=== PATIENT | male | born 1980 | race Caucasian/White ===

== ENCOUNTER 2016-04-09 01:52 | Inpatient (IN) ==
[2016-04-09] MEDS ORDERED: MORPHINE 2 MG/1 ML SYRINGE IV STA (02:17)
[2016-04-09] MEDS ORDERED: ONDANSETRON 4 MG/2 ML VIAL IV STA (02:17)
[2016-04-09] MEDS ORDERED: SODIUM CHLORIDE 0.9% 1,000 ML IV STA (02:17)
[2016-04-09] MEDS ORDERED: ONDANSETRON 4 MG/2 ML VIAL ONE (02:22)
[2016-04-09] MEDS ORDERED: MORPHINE 2 MG/1 ML SYRINGE ONE (02:22)
--- NOTE | 2016-04-09 02:23 | Emergency Department Note ---
Kera Anderson Gwan, am scribing for, and in the presence of, Ramon Sharma MD 02:19. Zachary nAderson Robert M, MD, personally performed the services described in this documentation, ascribed by Monico Cote in my presence, and it is both accurate and complete . Arrival - Arrival Chief Complaint: Abdominal / Flank Pain Stated Complaint: pancreatitis ED Nursing Triage Note: pt to triage via wc with c/o having abd pain with n/v. pt states onset earlier tonight around 2230. Mode of Arrival: Wheelchair Limitations: No Limitations Source: Patient, Old Records Reviewed, RN Notes Reviewed - History of Present Illness HPI Narrative: Pt is a 35 y/o male ,with a hx of diverticulitis/GERD/Pancreatitis, who presents to the ED with a c/o abd pain, N/V with an onset yesterday at 2230. Patient confirmed that he is followed by Dr. Sauceda and that he has been having normal BM. He denies any ETOH use. Patient continued to note that ETOH use is the cause of his Pancreatitis. Pt has a PMHx of HTN, anxiety disorder, bipolar disorder, manic depression, obstructive sleep apnea and dyslipidemia. No other problems/complaints reported in ED. Onset (ago): hour(s) Consistency: constant Severity: moderate Allergies/Adverse Reactions: Allergies Allergy/AdvReac Type Severity Reaction Status Date / Time Cefaclor [From Ceclor] AdvReac HIVES Verified 10/21/15 10:07 Home Medications: Home Medications Medication Instructions Recorded Confirmed Type Benazepril HCl 20 mg PO QAM 10/21/15 12/26/15 History Lorazepam [Ativan] 2 mg PO TID 10/21/15 12/26/15 History Sertraline HCl 100 mg PO QAM 10/21/15 12/26/15 History Acetaminophen Tab [Tylenol Tab] 500 mg PO Q12HR PRN #60 tablet 01/03/16 Rx Docusate Sodium Cap [Colace Cap] 100 mg PO BID capsule 01/03/16 Rx Potassium Chloride Cap/Tab [K Dur] 20 meq PO BID #60 tablet 01/03/16 Rx Thiamine Tab [Vitamin B1 Tab] 100 mg PO DAILY #30 tablet 01/03/16 Rx Review of System - Review of System 12 point system: reviewed and no additional remarkable complaints except as stated - Review of System Gastrointestinal: Present: as per HPI, abdominal pain, nausea, vomiting Medical,Surgical,& Family Hx - Medical History Cardio: History of: Hypertension Psychological: History of: Anxiety Disorders, Bipolar Disorder, Psychiatric Problems (MANIC DEPRESSION) HEENT: History of: HEENT Problems (RINGING IN EARS WHEN HAS SINUS PROBLEMS) Endocrine: History of: Dyslipidemia Rheumatology: History of;: Gout (FEET), Psoriasis Respiratory: History of: Obstructive Sleep Apnea (CPAP AT NIGHT) Gastrointestinal: History of: Diverticulitis/ Diverticulosis, GERD, GI Problems (abd hernia at [facility]) Hematology: History of: Anemia - Surgical History HEENT Surgeries: Patient denies: Eye Surgery, Tonsilectomy & Adenoidectomy Abdominal Surgeries: Patient denies: Abdominal Surgery, Appendectomy, Cholecystectomy, Colonoscopy , Gastric Bypass Surgery, EGD, Hernia Repair - Family History Family History: Reports;: Family Heart Disease (GRANDPARENTS (PAT AND MAT)) Denies;: Family Anesthesia Reaction, Family Cancer, Family Diabetes, Family Hypertension, Family Psychiatric Problems, Family Stroke - Social History Smoking Status: Never smoker Frequency of Alcohol Use: None Type of Drug Use: None Exam Vital Signs: Vital Signs Temperature 98.0 F 04/09/16 01:57 Pulse Rate 84 04/09/16 01:57 Respiratory Rate 17 04/09/16 01:57 Blood Pressure 140/95 04/09/16 01:57 O2 Sat by Pulse Oximetry 98 04/09/16 01:57 - General General appearance: alert - Head Head exam: Present: atraumatic, normocephalic - Eye Eye exam: Present: normal appearance, PERRL, EOMI - ENT ENT exam: Present: normal oropharynx, mucous membranes moist, TM's normal bilaterally, normal external ear exam - Neck Neck exam: Present: full ROM, trachea midline. Absent: tenderness - Chest Chest inspection: Present: symmetric chest wall rise. Absent: tenderness - Respiratory Respiratory exam: Present: normal lung sounds bilaterally. Absent: respiratory distress - Cardiovascular Cardiovascular exam: Present: regular rate, normal rhythm, normal heart sounds. Absent: murmur, rubs, gallop - Abdominal Exam Abdominal exam: Present: tenderness (Epigastric tenderness), guarding - Extremities Exam Extremities exam: Present: full ROM. Absent: tenderness - Back Exam Back exam: Present: full ROM. Absent: tenderness - Neurological Exam Neurological exam: Present: alert, oriented X3, CN II-XII intact. Absent: motor sensory deficit - Psychiatric Psychiatric exam: Present: normal affect, normal mood - Skin Skin exam: Present: warm, dry, intact, normal color Course - Reevaluation(s) Reevaluation #1: I checked the patient's FAMILY SOCIOLOGIST aware and it appears that he has Ambien and Ativan and large amounts most recently filled around March 29. Time: :21 - Consultations Consultation #1: Dr. Fishman will evaluate and admit the patient. Time: 03:09 Results - Labs CBC & BMP: 04/09/16 02:15 04/09/16 02:15 Lab Results: I have reviewed the patients labs Labs: Lab Results WBC 10.7 T/CUMM (4-12) 04/09/16 02:15 RBC 5.24 MC/CUMM (3.8-5.5) 04/09/16 02:15 Hgb 17.9 GM/DL (14.0-18.0) 04/09/16 02:15 Hct 51.5 VOL% (42.0-52.0) 04/09/16 02:15 MCV 98.3 FL (87-102) 04/09/16 02:15 MCH 34 PG (27-34) 04/09/16 02:15 MCHC 34.8 GM/DL (32-36) 04/09/16 02:15 RDW 14.0 % (9.3-17.3) 04/09/16 02:15 Plt Count 125 T/CUMM (130-400) L 04/09/16 02:15 MPV 11.9 FL (9.6-12.0) 04/09/16 02:15 Neut % (Auto) 68.0 % (38.7-73.9) 04/09/16 02:15 Lymph % (Auto) 21.6 % (21.2-54.2) 04/09/16 02:15 [place] % (Auto) 8.3 % (1.7-12.7) 04/09/16 02:15 Eos % (Auto) 1.0 % (0.00-10.9) 04/09/16 02:15 Baso % (Auto) 0.7 % (0.0-0.8) 04/09/16 02:15 Neut # (Auto) 7.3 10*3/uL (1.4-7.4) 04/09/16 02:15 Lymph # (Auto) 2.3 10*3/uL (1.4-4.0) 04/09/16 02:15 [place] # (Auto) 0.9 10*3/uL (0.11-0.8) H 04/09/16 02:15 Eos # (Auto) 0.1 10*3/uL (0.0-0.87) 04/09/16 02:15 Baso # (Auto) 0.1 10*3/uL (0.0-0.2) 04/09/16 02:15 Immature Gran % 0.4 % 04/09/16 02:15 Nucleated RBC % 0.0 /100WBC 04/09/16 02:15 Immature Gran # 0.04 # 04/09/16 02:15 Nucleated RBCs # 0.00 10*3/uL 04/09/16 02:15 Sodium 135 MMOL/L (136-145) L 04/09/16 02:15 Potassium 3.4 MMOL/L (3.5-5.1) L 04/09/16 02:15 Chloride 100 MMOL/L (98-107) 04/09/16 02:15 Carbon Dioxide 23 MMOL/L (21-32) 04/09/16 02:15 Anion Gap 15.4 MMOL/L (5.0-15.0) H 04/09/16 02:15 BUN 5 MG/DL (7-18) L 04/09/16 02:15 Creatinine 0.70 MG/DL (0.70-1.30) 04/09/16 02:15 GFR Calculation 156 ML/MIN 04/09/16 02:15 BUN/Creatinine Ratio 7.00 RATIO (6.00-20.00) 04/09/16 02:15 Glucose 130 MG/DL (74-106) H 04/09/16 02:15 Calculated Osmolality 268.1 MOS/KG (273-304) L 04/09/16 02:15 Calcium 8.9 MG/DL (8.5-10.1) 04/09/16 02:15 Total Bilirubin 0.70 MG/DL (0.2-1.0) 04/09/16 02:15 AST 68 U/L (0-37) H 04/09/16 02:15 ALT 60 U/L (16-61) 04/09/16 02:15 Alkaline Phosphatase 103 U/L (45-117) 04/09/16 02:15 Total Protein 7.5 G/DL (6.4-8.3) 04/09/16 02:15 Albumin 3.4 G/DL (3.4-5.0) 04/09/16 02:15 Globulin 4.1 G/DL (2.3-3.5) H 04/09/16 02:15 Albumin/Globulin Ratio 0.8 RATIO (1.1-2.2) L 04/09/16 02:15 Amylase 443 U/L (25-115) H 04/09/16 02:15 Lipase 80712.0 U/L (73-393) H 04/09/16 02:15 Serum Alcohol < 15 MG/DL (<15) L 04/09/16 02:15 Disposition Clinical Impression: Pancreatitis, Hypokalemia Case discussed with: patient, patient's family Disposition: Still a Patient Condition: Stable Instructions: Pancreatitis (ED) Time of Disposition: 03:09
[2016-04-09 02:34] LABS: Basophils # 0.1 10*3/uL (0.0-0.2); Basophils % 0.7 % (0.0-0.8); Eosinophils # 0.1 10*3/uL (0.0-0.87); Hematocrit 51.5 VOL% (42.0-52.0); Hemoglobin 17.9 GM/DL (14.0-18.0); Immature Granulocytes % 0.4 %; Immature Granulocytes Absolute 0.04 #; Lymphocytes # 2.3 10*3/uL (1.4-4.0); Lymphocytes % 21.6 % (21.2-54.2); Mean Corpuscular HGB Conc 34.8 GM/DL (32-36); Mean Corpuscular Hemoglobin 34 PG (27-34); Mean Corpuscular Volume 98.3 FL (87-102); Mean Platelet Volume 11.9 FL (9.6-12.0); Monocytes # 0.9 10*3/uL (0.11-0.8); Monocytes % 8.3 % (1.7-12.7); Neutrophils # 7.3 10*3/uL (1.4-7.4); Platelet Count 125 T/CUMM (130-400); Red Blood Count 5.24 MC/CUMM (3.8-5.5); White Blood Count 10.7 T/CUMM (4-12)
[2016-04-09 02:55] LABS: Albumin 3.4 G/DL (3.4-5.0); Bilirubin,Total 0.7 MG/DL (0.2-1.0); Calcium 8.9 MG/DL (8.5-10.1); Osmolality,Calculated 268.1 MOS/KG (273-304); Potassium 3.4 MMOL/L (3.5-5.1); Total Protein 7.5 G/DL (6.4-8.3)
[2016-04-09] MEDS ORDERED: ACETAMINOPHEN 325 MG TABLET PO PRN (03:10)
[2016-04-09] MEDS ORDERED: HYDROmorphone 2 MG/1 ML VIAL IV STA (03:17)
[2016-04-09] MEDS ORDERED: HYDROmorphone 2 MG/1 ML VIAL ONE (03:19)
[2016-04-09] MEDS ORDERED: SODIUM CHLORIDE 0.9% 1,000 ML IV SCH (03:30)
[2016-04-09 03:36] LABS: Apearance,Urine Slightly Hazy (Clear); Bilirubin,Urine Negative (Negative); Blood, Urine Negative (Negative); Glucose,Urine (UA) Negative (Negative); Hyaline Casts,Urine 3 /LPF (0-3); Ketones,Urine 5 mg/dL (Negative); Mucus,Urine Many /LPF (Occasional); Nitrite,Urine Negative (Negative); Protein,Urine 30 MG/DL; Squamous Epithelial Cell,Urine Occasional /HPF (0-10); Urine Color Amber (Yellow); Urine Urobilinogen < 2.0 EU/DL (0.2-1.0); WBC,Urine 2 /HPF (0-6)
[2016-04-09 03:39] LABS: Barbiturates Screen,Urine Negative (Negative); Benzodiazepines Screen,Urine Positive (Negative); Cannabinoid Screen,Urine Positive (Negative); Opiate Screen,Urine Positive (Negative); Phencyclidine Screen,Urine Negative (Negative)
[2016-04-09] MEDS ORDERED: INFLUENZA VIRUS VACCINE 0.5 ML SYRINGE IM ONE (04:37)
--- NOTE | 2016-04-09 08:02 | Family Practice History&Phys ---
Assessment and Plan (1) Acute pancreatitis Status: Acute Assessment and plan: We will admit for IV fluids pain control and obtain a GI consult Current Visit: No Qualifiers: Pancreatitis type: alcohol induced (2) Substance abuse Status: Chronic Assessment and plan: We will monitor for signs of substance withdrawal Current Visit: Yes (3) Bipolar disorder Status: Chronic Assessment and plan: We will resume home medications Current Visit: Yes (4) Obstructive sleep apnea Status: Chronic Assessment and plan: We will resume CPAP and monitor Current Visit: Yes (5) Hypertension Status: Chronic Assessment and plan: We will resume home meds and monitor Current Visit: Yes (6) Hyperlipidemia Status: Chronic Assessment and plan: We will resume home meds and monitor Current Visit: Yes History of Present Illness Chief complaint: Pancreatitis History of present illness: Mr. Clements is a 35 year old male Pt is a 35 y/o male ,with a hx of diverticulitis/GERD/Pancreatitis, who presents to the ED with a c/o abd pain, N/V with an onset yesterday at 2230. Patient has been having normal BM. He denies any ETOH use. Patient continued to note that ETOH use is the cause of his Pancreatitis. Pt has a PMHx of HTN, anxiety disorder, bipolar disorder, manic depression, obstructive sleep apnea and dyslipidemia. No other problems/complaints reported . Patient is known to me there is only seen hospital admitted for pancreatitis. His drug screen in the emergency room was positive for opioids and benzodiazepines and cannabinoids. Serum alcohol was negative. His amylase was 443 and lipase was 14,169. He is having significant pain on palpation of the epigastric region. In view of history we will admit further evaluation therapy Home Medications Medication Instructions Recorded Confirmed Type Benazepril HCl 20 mg PO QAM 10/21/15 04/09/16 History Lorazepam [Ativan] 2 mg PO TID 10/21/15 04/09/16 History Sertraline HCl 100 mg PO QAM 10/21/15 04/09/16 History Zolpidem [Ambien] 10 mg PO BEDTIME 04/09/16 04/09/16 History Allergies Allergy/AdvReac Type Severity Reaction Status Date / Time Cefaclor [From Ceclor] AdvReac HIVES Verified 10/21/15 10:07 Medical,Surgical,& Family Hx - Medical History Cardio: History of: Hypertension Psychological: History of: Anxiety Disorders, Bipolar Disorder, Psychiatric Problems (MANIC DEPRESSION) HEENT: History of: Eye Problem (wears glasses), HEENT Problems (RINGING IN EARS WHEN HAS SINUS PROBLEMS) Endocrine: History of: Dyslipidemia Rheumatology: History of;: Gout (FEET), Psoriasis Respiratory: History of: Obstructive Sleep Apnea (CPAP AT NIGHT) Gastrointestinal: History of: Diverticulitis/ Diverticulosis, GERD, GI Problems (abd hernia at [employer]) Hematology: History of: Anemia - Surgical History Thoracic Surgeries: Patient denies;: Organ Transplant HEENT Surgeries: Surgical HX of: Tonsilectomy & Adenoidectomy (adenoidectomy) Patient denies: Eye Surgery Abdominal Surgeries: Patient denies: Abdominal Surgery, Appendectomy, Cholecystectomy, Colonoscopy , Gastric Bypass Surgery, EGD, Hernia Repair - Family History Family History: Reports;: Family Heart Disease (GRANDPARENTS (PAT AND MAT)), Family Hypertension Denies;: Family Anesthesia Reaction, Family Cancer, Family Diabetes, Family Psychiatric Problems, Family Stroke - Social History Smoking Status: Never smoker Frequency of Alcohol Use: None Type of Drug Use: None Exam - Constitutional Vitals: Period Temp Pulse Resp BP Sys/Velasquez Pulse Ox Last 24 Hr 97.6 F 81-91 20-20 146-159/93-104 95-97 General appearance: mild distress - Head Head exam: Present: normal inspection - ENT ENT exam: Present: normal exam - Neck Neck exam: Present: normal inspection - Respiratory Respiratory exam: Present: clear to auscultation bilaterally - Cardiovascular Cardiovascular exam: Present: regular rate and rhythm - GI/Abdominal GI/Abdominal exam: Present: hyperactive bowel sounds, tenderness (Tenderness over the epigastric region of abdomen) - Extremities Exam Extremities exam: Present: normal inspection - Back Exam Back exam: Present: normal inspection - Neurological Exam Neurological exam: Present: alert - Psychiatric Psychiatric exam: Present: normal affect - Skin Skin exam: Present: normal color Results - Labs CBC & BMP: 04/09/16 02:15 04/09/16 02:15 Quality Measures - Stroke Symptom Onset Unknown: No
[2016-04-09] MEDS: HYDROmorphone 2 MG/1 ML VIAL IV PRN ×5 (08:08→23:57)
[2016-04-09] MEDS: PANTOPRAZOLE 40 MG TABLET PO SCH (09:48)
[2016-04-09] MEDS: DOCUSATE SODIUM 100 MG CAPSULE PO SCH ×2 (09:48→21:19)
[2016-04-09] MEDS: LORazepam 1 MG TABLET PO SCH ×3 (09:48→21:19)
[2016-04-09] MEDS: BENAZEPRIL 10 MG TABLET PO SCH (09:48)
[2016-04-09] MEDS: SERTRALINE 100 MG TABLET PO SCH (09:49)
[2016-04-09] MEDS: SODIUM CHLOR 0.9% KCL 20 MEQ 20 MEQ/1,000 ML BAG IV SCH ×2 (09:49→17:33)
--- NOTE | 2016-04-09 10:16 | Gastrointestinal Consult Note ---
Assessment and Plan (1) Acute pancreatitis Status: Acute Assessment and plan: 3/3-Two day history of LUQ pain with nausea, vomiting with hx of pancreatitis in December 2015, with hx of ETOH. Lipase 27051 on admission. Abd US is pending at present time. Plan and addendum to follow by Dr Cortez. Current Visit: No Qualifiers: Pancreatitis type: alcohol induced (2) Rectal bleeding Status: Acute Assessment and plan: 3-Onset of bright red bleeding w/o clots x 2 days. No lower abd pain. Hgb stable at 17.9. No prior endoscopy. Plan and addendum to follow by Dr Cortez. Current Visit: Yes History of Present Illness Chief complaint: Pancreatitis, rectal bleed History of present illness: Mr. Clements is a 35 year old male who presented to the hospital with onset of abdominal pain and reported rectal bleeding. He has a prior history of HTN, anxiety disorder, bipolar disorder, manic depressive and obstructive sleep apnea. Pt states that he was in his usual state of health until Tuesday when he had a sudden onset of LUQ abdominal pain with nausea and vomiting. He states the pain was severe in nature and not easily relieve. Pt states that it felt very similar to his prior episode of pancreatitis in the past. Patient states that he also has noted that he has had some bright red blood passing from his rectum the past couple of days. He has had this in the past as well. He denies any chills or weight loss but states he did run fever at home. He has a history of ETOH use however states he has not drank any alcohol since his initial episode in December. Pt was admitted in Dec of this past year with abdominal pain and coffee ground emesis. He states that he has had no further vomiting or bleeding until now. Pt has never had endoscopy done in the past. He denies any cofee ground emesis or hematemesis this time. He denies family history of colon cancer. He is noted to be positive for THC on admission which he states he smokes this once a week on average. Lipase 28579. Hgb 17.9. Home Medications Medication Instructions Recorded Confirmed Type Benazepril HCl 20 mg PO QAM 10/21/15 04/09/16 History Lorazepam [Ativan] 2 mg PO TID 10/21/15 04/09/16 History Sertraline HCl 100 mg PO QAM 10/21/15 04/09/16 History Zolpidem [Ambien] 10 mg PO BEDTIME 04/09/16 04/09/16 History Allergies Allergy/AdvReac Type Severity Reaction Status Date / Time Cefaclor [From [facility]] AdvReac HIVES Verified 10/21/15 10:07 Medical,Surgical,& Family Hx - Medical History Cardio: History of: Hypertension Psychological: History of: Anxiety Disorders, Bipolar Disorder, Psychiatric Problems (MANIC DEPRESSION) HEENT: History of: Eye Problem (wears glasses), HEENT Problems (RINGING IN EARS WHEN HAS SINUS PROBLEMS) Endocrine: History of: Dyslipidemia Rheumatology: History of;: Gout (FEET), Psoriasis Respiratory: History of: Obstructive Sleep Apnea (CPAP AT NIGHT) Gastrointestinal: History of: Diverticulitis/ Diverticulosis, GERD, GI Problems (abd hernia at [employer]) Hematology: History of: Anemia - Surgical History Thoracic Surgeries: Patient denies;: Organ Transplant HEENT Surgeries: Surgical HX of: Tonsilectomy & Adenoidectomy (adenoidectomy) Patient denies: Eye Surgery Abdominal Surgeries: Patient denies: Abdominal Surgery, Appendectomy, Cholecystectomy, Colonoscopy , Gastric Bypass Surgery, EGD, Hernia Repair - Family History Family History: Reports;: Family Heart Disease (GRANDPARENTS (PAT AND MAT)), Family Hypertension Denies;: Family Anesthesia Reaction, Family Cancer, Family Diabetes, Family Psychiatric Problems, Family Stroke - Social History Smoking Status: Never smoker Frequency of Alcohol Use: None Type of Drug Use: None 12 point system: reviewed and no additional remarkable complaints except as stated - Constitutional Constitutional: Present: as per HPI - EENT Eyes: Present: as per HPI Ears: Present: as per HPI Nose, mouth and throat: Present: as per HPI - Cardiovascular Cardiovascular: Present: as per HPI - Respiratory Respiratory: Present: as per HPI - Gastrointestinal Gastrointestinal: Present: as per HPI, abdominal pain, hematochezia, nausea, vomiting - Genitourinary Genitourinary: Present: as per HPI - Musculoskeletal Musculoskeletal: Present: as per HPI - Neurological Neurological: Present: as per HPI - Psychiatric Psychiatric: Present: as per HPI - Endocrine Endocrine: Present: as per HPI - Hematologic/Lymphatic Hematologic/Lymphatic: Present: as per HPI Exam - Constitutional Vitals: Period Temp Pulse Resp BP Sys/Velasquez Pulse Ox Last 24 Hr 97.6 F-97.7 F 73-91 20-20 146-159/89-104 93-97 General appearance: normal weight, no acute distress - Head Head exam: Present: normal inspection, normocephalic - Eye Eye exam: Present: other (lids and conjunctiva unremarkable). Absent: scleral icterus - ENT ENT exam: Present: normal exam, normal oropharynx - Neck Neck exam: Present: normal inspection - Respiratory Respiratory exam: Present: clear to auscultation bilaterally. Absent: rales, rhonchi, wheezes - Cardiovascular Cardiovascular exam: Present: regular rate and rhythm. Absent: diastolic murmur , JVD, systolic murmur - GI/Abdominal GI/Abdominal exam: Present: normal bowel sounds, tenderness, soft. Absent: ascites, distended, mass, organomegaly - Extremities Exam Extremities exam: Present: normal inspection, full ROM - Back Exam Back exam: Present: normal inspection - Neurological Exam Neurological exam: Present: alert, oriented X3 - Psychiatric Psychiatric exam: Present: normal affect, normal mood - Skin Skin exam: Present: normal color, warm, dry Results - Labs CBC & BMP: 04/09/16 02:15 04/09/16 02:15 Lab Results: I have reviewed the past 24 hour labs Quality Measures - Stroke Symptom Onset Unknown: No Specialty Discharge - Follow Up or Referrals
--- NOTE | 2016-04-09 10:52 | Ultrasound Report ---
Exam: US abdomen Date: 04/09/2016 7:52 AM Comparison: 12/27/2015 Indication: Pancreatitis Technique:[Multiple transabdominal real-time scans were obtained of the abdomen. Color flow scans obtained. Ultrasound images were captured and stored.] Findings: No definite gallbladder pathology identified. CBD is. CBD is the upper limits of normal in size measuring 6 mm. The liver is enlarged with diffuse fatty infiltration. The spleen is normal in size. The spleen is borderline in size with splenic index of 499. Right kidney measures 111 mm in length. Left kidney measures 101 mm in length with no mass or hydronephrosis. The pancreas, aorta including the aortic bifurcation, and IVC are obscured by bowel gas. Color-flow noted in the IVC. Impression: No gallbladder pathology identified. The liver is enlarged with fatty infiltration. The spleen is borderline in size with splenic index of 499. The pancreas and aorta are obscured by bowel gas. The Ultrasound images were captured and stored. PROCEDURE INTERPRETED AT [facility] DEPARTMENT OF RADIOLOGY Final Report Signed by: Dr. Carol Ann Allen
[2016-04-09] MEDS: ONDANSETRON 4 MG/2 ML VIAL IV PRN ×2 (12:07→23:57)
[2016-04-09] MEDS: ZALEPLON 5 MG CAPSULE PO SCH (21:19)
[2016-04-10] MEDS: SODIUM CHLOR 0.9% KCL 20 MEQ 20 MEQ/1,000 ML BAG IV SCH ×3 (01:33→17:30)
[2016-04-10] MEDS: HYDROmorphone 2 MG/1 ML VIAL IV PRN ×5 (04:02→20:26)
[2016-04-10 06:07] LABS: Calcium 8.3 MG/DL (8.5-10.1); Magnesium 1.7 MG/DL (1.8-2.4); Osmolality,Calculated 273.5 MOS/KG (273-304); Potassium 3.9 MMOL/L (3.5-5.1); Risk Ratio 2.71
[2016-04-10 06:21] LABS: Basophils % 0.1 % (0.0-0.8); Eosinophils # 0.1 10*3/uL (0.0-0.87); Eosinophils % 1.1 % (0.00-10.9); Hematocrit 46.8 VOL% (42.0-52.0); Hemoglobin 16.1 GM/DL (14.0-18.0); Immature Granulocytes % 0.3 %; Immature Granulocytes Absolute 0.03 #; Lymphocytes # 1.7 10*3/uL (1.4-4.0); Lymphocytes % 19.2 % (21.2-54.2); Mean Corpuscular HGB Conc 34.4 GM/DL (32-36); Mean Corpuscular Hemoglobin 35 PG (27-34); Mean Corpuscular Volume 100.4 FL (87-102); Mean Platelet Volume 11.8 FL (9.6-12.0); Monocytes # 0.8 10*3/uL (0.11-0.8); Monocytes % 8.4 % (1.7-12.7); Neutrophils # 6.3 10*3/uL (1.4-7.4); Neutrophils % 70.9 % (38.7-73.9); Red Blood Count 4.66 MC/CUMM (3.8-5.5); Red Cell Distribution Width 13.8 % (9.3-17.3); White Blood Count 8.9 T/CUMM (4-12)
[2016-04-10 06:26] LABS: Platelet Count 75 T/CUMM (130-400)
[2016-04-10 07:25] LABS: Platelet Estimate Decreased
--- NOTE | 2016-04-10 07:50 | Family Practice Progress Note ---
Family Practice - PN: Subj Interval history: Patient states his abdominal pain is improved but still present. I note that his lipase is dropped from 14,000 down to 800. Is not have any fever and chills. His blood pressure is a little elevated which makes the nursing staff tense. I will add an antihypertensive to his present medications. Exam (Progress Note) - Constitutional Vitals: Period Temp Pulse Resp BP Sys/Velasquez Pulse Ox Last 24 Hr 97.7 F-98.9 F 73-97 20-20 126-166/82-111 93-98 Exam: Objective reveals a well-developed gentleman is awake and able give good history. He appears comfortable though he states is in quite a bit of discomfort yet. Cardiovascular: Heart rates rate without murmurs or gallops. Respiratory: Lungs clear to auscultation bilaterally. Abdomen: Abdomen is diffusely tender directly but no rebound guarding were noted. Results - Labs CBC & BMP: 04/10/16 06:15 04/10/16 05:02 Lab Results: I have reviewed the past 24 hour labs Assessment and Plan (1) Acute pancreatitis Status: Acute Assessment and plan: 04/10/2016: Patient is improving clinically. Current Visit: No Qualifiers: Pancreatitis type: alcohol induced Quality Measures - Stroke Symptom Onset Unknown: No Specialty Discharge - Follow Up or Referrals
[2016-04-10] MEDS: ONDANSETRON 4 MG/2 ML VIAL IV PRN ×2 (08:22→20:26)
[2016-04-10] MEDS: LORazepam 1 MG TABLET PO SCH ×3 (08:28→20:25)
[2016-04-10] MEDS: amLODIPine 5 MG TABLET PO SCH (08:28)
[2016-04-10] MEDS: BENAZEPRIL 10 MG TABLET PO SCH (08:28)
[2016-04-10] MEDS: DOCUSATE SODIUM 100 MG CAPSULE PO SCH ×2 (08:28→20:25)
[2016-04-10] MEDS: SERTRALINE 100 MG TABLET PO SCH (08:29)
[2016-04-10] MEDS: PANTOPRAZOLE 40 MG TABLET PO SCH (08:29)
--- NOTE | 2016-04-10 09:31 | Gastrointestinal Progress Note ---
Assessment and Plan - Time spent with patient Time spent with patient: Greater than 30 minutes (1) Acute pancreatitis Status: Acute Current Visit: No Qualifiers: Pancreatitis type: alcohol induced (2) Rectal bleeding Status: Acute Current Visit: Yes (3) Other specified counseling Status: Acute Current Visit: Yes Exam (Progress Note) - Constitutional Vitals: Period Temp Pulse Resp BP Sys/Velasquez Pulse Ox Last 24 Hr 97.8 F-99.2 F 75-97 20-20 126-166/82-111 94-98 Results - Labs CBC & BMP: 04/10/16 06:15 04/10/16 05:02 Specialty Discharge - Follow Up or Referrals Note Addendum: PLEASE NOTE -- automatic citation of patient information is unavoidable in this electronic note. I have made a reasonable effort to review the information cited , but it is not a part of my evaluation, impression, or recommendation unless specifically discussed in the dictated text that follows. As well, voice recognition software was used in the creation of this clinical note. Reasonable effort was made to identify and correct gross errors. Despite proofreading, errors in practice support specialist may be present, including nonsense verbiage at times. If you encounter such an error, please contact me at for discussion and correction. -- Ronen Chief complaint: acute pancreatitis Subjective: the patient is a 35-year-old male seen for follow-up of acute pancreatitis. The patient reports some clinical improvement but is still having abdominal pain. He does not have an appetite this morning. He is still getting crystalloid resuscitation at a reasonable rate. He has not had any bowel movements, bloody or otherwise. Medications: Tylenol, Norvasc, Redig, Colace, Dilaudid, Ativan, Zofran, Protonix, normal saline infusion, Zoloft, Sonata Review of Symptoms: 12 point review of symptoms was negative except as noted above Physical examination: Vital Signs: Current vital signs reviewed. General Appearance: well-appearing. Not acutely ill. Head: Normocephalic. Eyes: no scleral icterus. No scleral injection. No conjunctival pallor. Oral Cavity: Odor of breath was normal. No drooling was observed. Lips showed no abnormalities. Lungs: Respiration rhythm and depth was normal. Cardiovascular: Heart rate and rhythm were normal. Abdomen: abdomen was not distended. Abdominal auscultation revealed no abnormalities. Ascites was not discovered. Abdominal palpation revealed no tenderness and no hepatosplenomegaly. Musculoskeletal System: musculoskeletal system was grossly normal. Neurological: level of consciousness was normal. Speech was normal. No coordination/cerebellum abnormalities were noted. Skin: Gen. appearance was normal. Color and pigmentation were normal. No skin lesions were appreciated. Laboratory: white blood count 8.9, hemoglobin 16.1, hematocrit 46.8, platelets 75, lipase 839 (down from 14,000) Radiology: right upper quadrant ultrasound from yesterday revealed no evidence of gallbladder disease, positive evidence of fatty liver, and marginal splenomegaly Impressions: 1. Acute pancreatitis -- patient is improving clinically. I recommend continued crystalloid resuscitation, bowel rest, and PRN analgesia. 2. Hematochezia -- no bleeding during hospitalization. The patient will need colonoscopy during convalescence. 3. Patient Counseling: Medical Management: Patient seen for greater than 30 minutes. Greater than 50% of this time was spent counseling regarding differential diagnosis, likely diagnosis,, diagnostic and therapeutic options, risks, benefits, and alternatives to procedures and medications, informed consent, and plan of care generally. Patient has expressed understanding and wishes to proceed. Recommendations: -- continue crystalloid resuscitation -- continued bowel rest until patient develops a robust appetite -- continued analgesic as indicated -- colonoscopy during convalescence -- we will continue to follow with you
[2016-04-10] MEDS: ZALEPLON 5 MG CAPSULE PO SCH (20:25)
[2016-04-11] MEDS: HYDROmorphone 2 MG/1 ML VIAL IV PRN ×6 (00:21→21:26)
[2016-04-11] MEDS: SODIUM CHLOR 0.9% KCL 20 MEQ 20 MEQ/1,000 ML BAG IV SCH ×3 (01:12→21:02)
[2016-04-11] MEDS: ONDANSETRON 4 MG/2 ML VIAL IV PRN ×3 (04:50→21:26)
[2016-04-11 05:29] LABS: Basophils % 0.4 % (0.0-0.8); Eosinophils # 0.2 10*3/uL (0.0-0.87); Eosinophils % 2.6 % (0.00-10.9); Hematocrit 42.7 VOL% (42.0-52.0); Hemoglobin 14.6 GM/DL (14.0-18.0); Immature Granulocytes % 0.3 %; Immature Granulocytes Absolute 0.02 #; Lymphocytes # 1.9 10*3/uL (1.4-4.0); Lymphocytes % 25.3 % (21.2-54.2); Mean Corpuscular HGB Conc 34.2 GM/DL (32-36); Mean Corpuscular Hemoglobin 34 PG (27-34); Mean Platelet Volume 12.3 FL (9.6-12.0); Monocytes # 0.7 10*3/uL (0.11-0.8); Monocytes % 9.5 % (1.7-12.7); Neutrophils # 4.7 10*3/uL (1.4-7.4); Neutrophils % 61.9 % (38.7-73.9); Platelet Count 66 T/CUMM (130-400); Red Blood Count 4.27 MC/CUMM (3.8-5.5); Red Cell Distribution Width 13.6 % (9.3-17.3); White Blood Count 7.6 T/CUMM (4-12)
[2016-04-11 05:45] LABS: Calcium 8.3 MG/DL (8.5-10.1); Osmolality,Calculated 272.5 MOS/KG (273-304); Potassium 3.7 MMOL/L (3.5-5.1)
[2016-04-11 05:58] LABS: Band Neutrophils 1 % (0-10); Eosinophils 1 % (0-10); Lymphocytes 17 % (20-55); Myelocytes 5 %; Segmented Neutrophils 75 % (50-85)
[2016-04-11 06:00] LABS: Platelet Estimate Decreased; Total Cells Counted 100
--- NOTE | 2016-04-11 06:58 | Family Practice Progress Note ---
Family Practice - PN: Subj Interval history: Patient says she is feeling a little bit better though he still having abdominal pain. Patient states she is hungry with a little reluctant to eat due to this pain. I note that his lipase is down to 352 this morning. Exam (Progress Note) - Constitutional Vitals: Period Temp Pulse Resp BP Sys/Velasquez Pulse Ox Last 24 Hr 97.9 F-99.2 F 87-94 18-20 130-162/76-106 92-96 Exam: Objective reveals a well-developed gentleman is awake and able give good history. He appears comfortable though his abdominal pain persists. Cardiovascular: Heart rates rate without murmurs or gallops. Respiratory: Lungs clear to auscultation bilaterally. Abdomen: Abdomen is diffusely tender directly but no rebound guarding were noted. Results - Labs CBC & BMP: 04/11/16 05:13 04/11/16 05:13 Lab Results: I have reviewed the past 24 hour labs Assessment and Plan (1) Acute pancreatitis Status: Acute Assessment and plan: 04/10/2016: Patient is improving clinically. 04/11/2016: Patient's pancreatitis is clinically improving. He is now on clear liquids. Current Visit: No Qualifiers: Pancreatitis type: alcohol induced Quality Measures - Stroke Symptom Onset Unknown: No Specialty Discharge - Follow Up or Referrals
--- NOTE | 2016-04-11 08:15 | Gastrointestinal Progress Note ---
Assessment and Plan (1) Acute pancreatitis Status: Acute Current Visit: No Qualifiers: Pancreatitis type: alcohol induced (2) Rectal bleeding Status: Acute Current Visit: Yes (3) Other specified counseling Status: Acute Current Visit: Yes Exam (Progress Note) - Constitutional Vitals: Period Temp Pulse Resp BP Sys/Velasquez Pulse Ox Last 24 Hr 97.9 F-98.4 F 87-94 18-20 130-149/76-106 92-96 Results - Labs CBC & BMP: 04/11/16 05:13 04/11/16 05:13 Specialty Discharge - Follow Up or Referrals Note Addendum: PLEASE NOTE -- automatic citation of patient information is unavoidable in this electronic note. I have made a reasonable effort to review the information cited , but it is not a part of my evaluation, impression, or recommendation unless specifically discussed in the dictated text that follows. As well, voice recognition software was used in the creation of this clinical note. Reasonable effort was made to identify and correct gross errors. Despite proofreading, errors in sack repairer may be present, including nonsense verbiage at times. If you encounter such an error, please contact me at for discussion and correction. -- Ronen Chief complaint: acute pancreatitis Subjective: the patient is a 35-year-old male seen for follow-up of acute pancreatitis. The patient reports he is continuing to improve daily. He continues with mild abdominal pain and still does not have much of an appetite. Medications: Tylenol, Norvasc, [place], Colace, Dilaudid, Ativan, Zofran, Protonix, normal saline infusion, Zoloft, Sonata Review of Symptoms: 12 point review of symptoms was negative except as noted above Physical examination: Vital Signs: Current vital signs reviewed. General Appearance: well-appearing. Not acutely ill. Head: Normocephalic. Eyes: no scleral icterus. No scleral injection. No conjunctival pallor. Oral Cavity: Odor of breath was normal. No drooling was observed. Lips showed no abnormalities. Lungs: Respiration rhythm and depth was normal. Cardiovascular: Heart rate and rhythm were normal. Abdomen: abdomen was not distended. Abdominal auscultation revealed no abnormalities. Ascites was not discovered. Abdominal palpation revealed no tenderness and no hepatosplenomegaly. Musculoskeletal System: musculoskeletal system was grossly normal. Neurological: level of consciousness was normal. Speech was normal. No coordination/cerebellum abnormalities were noted. Skin: Gen. appearance was normal. Color and pigmentation were normal. No skin lesions were appreciated. Laboratory: white blood count 7.6, hemoglobin 14.6, hematocrit 42.7, platelets 66, lipase 352 Radiology: no new radiology today Impressions: 1. Acute pancreatitis -- patient is improving clinically. I recommend continued crystalloid resuscitation, bowel rest, and PRN analgesia. 2. Hematochezia -- no bleeding during hospitalization. The patient will need colonoscopy during convalescence. 3. Patient Counseling: Medical Management: Patient seen for greater than 30 minutes. Greater than 50% of this time was spent counseling regarding differential diagnosis, likely diagnosis,, diagnostic and therapeutic options, risks, benefits, and alternatives to procedures and medications, informed consent, and plan of care generally. Patient has expressed understanding and wishes to proceed. Recommendations: -- continue crystalloid resuscitation -- continued bowel rest until patient develops a robust appetite -- continued analgesic as indicated -- colonoscopy during convalescence -- we will continue to follow with you. Dr. Cortez will resume G.I. care for this patient tomorrow.
[2016-04-11] MEDS: amLODIPine 5 MG TABLET PO SCH (08:25)
[2016-04-11] MEDS: DOCUSATE SODIUM 100 MG CAPSULE PO SCH ×2 (08:25→21:29)
[2016-04-11] MEDS: LORazepam 1 MG TABLET PO SCH ×3 (08:25→21:28)
[2016-04-11] MEDS: SERTRALINE 100 MG TABLET PO SCH (08:26)
[2016-04-11] MEDS: PANTOPRAZOLE 40 MG TABLET PO SCH (08:26)
[2016-04-11] MEDS: BENAZEPRIL 10 MG TABLET PO SCH (08:26)
[2016-04-11] MEDS: ZALEPLON 5 MG CAPSULE PO SCH (21:28)
[2016-04-12] MEDS: HYDROmorphone 2 MG/1 ML VIAL IV PRN ×6 (01:16→23:02)
[2016-04-12] MEDS: SODIUM CHLOR 0.9% KCL 20 MEQ 20 MEQ/1,000 ML BAG IV SCH ×3 (01:17→17:35)
[2016-04-12 04:20] LABS: Basophils % 0.5 % (0.0-0.8); Eosinophils # 0.2 10*3/uL (0.0-0.87); Eosinophils % 3.5 % (0.00-10.9); Hematocrit 43.2 VOL% (42.0-52.0); Hemoglobin 14.3 GM/DL (14.0-18.0); Immature Granulocytes % 0.3 %; Immature Granulocytes Absolute 0.02 #; Lymphocytes # 1.9 10*3/uL (1.4-4.0); Lymphocytes % 28.7 % (21.2-54.2); Mean Corpuscular HGB Conc 33.1 GM/DL (32-36); Mean Corpuscular Hemoglobin 34 PG (27-34); Mean Corpuscular Volume 103.6 FL (87-102); Mean Platelet Volume 11.9 FL (9.6-12.0); Monocytes # 0.6 10*3/uL (0.11-0.8); Monocytes % 9.1 % (1.7-12.7); Neutrophils # 3.8 10*3/uL (1.4-7.4); Neutrophils % 57.9 % (38.7-73.9); Platelet Count 73 T/CUMM (130-400); Red Blood Count 4.17 MC/CUMM (3.8-5.5); Red Cell Distribution Width 13.2 % (9.3-17.3); White Blood Count 6.6 T/CUMM (4-12)
[2016-04-12 04:48] LABS: Calcium 8.4 MG/DL (8.5-10.1); Osmolality,Calculated 278.1 MOS/KG (273-304); Potassium 4.2 MMOL/L (3.5-5.1)
--- NOTE | 2016-04-12 08:36 | Family Practice Progress Note ---
Family Practice - PN: Subj Interval history: Patient states that he feels better but is still having epigastric abdominal pain. Still develop some increased pain and nausea with even liquids. Patient has some diffuse tenderness of the epigastric region on palpation. General is much improved from admission he said he had amylase is 21 and lipase is 280. Discussed in detail with patient.. Manual examination is stable. Will continue on liquids and supportive care. Hopefully will continue to improve Exam (Progress Note) - Constitutional Vitals: Period Temp Pulse Resp BP Sys/Velasquez Pulse Ox Last 24 Hr 97.4 F-98.6 F 75-88 18-22 121-141/75-103 92-97 Results - Labs CBC & BMP: 04/12/16 03:50 04/12/16 03:50 Assessment and Plan (1) Acute pancreatitis Status: Acute Assessment and plan: We will admit for IV fluids pain control and obtain a GI consult Current Visit: No Qualifiers: Pancreatitis type: alcohol induced (2) Substance abuse Status: Chronic Assessment and plan: We will monitor for signs of substance withdrawal Current Visit: Yes (3) Bipolar disorder Status: Chronic Assessment and plan: We will resume home medications Current Visit: Yes (4) Obstructive sleep apnea Status: Chronic Assessment and plan: We will resume CPAP and monitor Current Visit: Yes (5) Hypertension Status: Chronic Assessment and plan: We will resume home meds and monitor Current Visit: Yes (6) Hyperlipidemia Status: Chronic Assessment and plan: We will resume home meds and monitor Current Visit: Yes Quality Measures - Stroke Symptom Onset Unknown: No Specialty Discharge - Follow Up or Referrals
[2016-04-12] MEDS: PANTOPRAZOLE 40 MG TABLET PO SCH (09:31)
[2016-04-12] MEDS: SERTRALINE 100 MG TABLET PO SCH (09:31)
[2016-04-12] MEDS: LORazepam 1 MG TABLET PO SCH ×3 (09:31→20:57)
[2016-04-12] MEDS: amLODIPine 5 MG TABLET PO SCH (09:31)
[2016-04-12] MEDS: BENAZEPRIL 10 MG TABLET PO SCH (09:31)
[2016-04-12] MEDS: DOCUSATE SODIUM 100 MG CAPSULE PO SCH ×2 (09:32→20:57)
--- NOTE | 2016-04-12 09:42 | Gastrointestinal Progress Note ---
Assessment and Plan (1) Acute pancreatitis Status: Acute Assessment and plan: 04/12-Pain improved slighlty from baseline, still requiring narcotics regularly. Lipase 280. Continue with clear liquid diet at this time. Plan and addendum to follow by Dr Cortez. 04/09-Two day history of LUQ pain with nausea, vomiting with hx of pancreatitis in December 2015, with hx of ETOH. Lipase 27283 on admission. Abd US is pending at present time. Plan and addendum to follow by Dr Cortez. Current Visit: No Qualifiers: Pancreatitis type: alcohol induced (2) Rectal bleeding Status: Acute Assessment and plan: 04/09-Onset of bright red bleeding w/o clots x 2 days. No lower abd pain. Hgb stable at 17.9. No prior endoscopy. Plan and addendum to follow by Dr Cortez. Current Visit: Yes Gastroenterology - PN: Subj Interval history: CC: Pancreatitis Pt is seen, awake and alert. States he is feeling about the same. He continues to have pain, with slight improvement but requiring continued pain medications. His lipase level is down at 280. He is having no nausea or vomiting. He continues on clear liquid diet at this time. Discussed with pt that we cannot advance his diet until his pain is more controlled and requires less narcotics. He verbalizes understanding of this. Abdomen is soft, mild tenderness. Afebrile. WBC 6.6. ROS: Denies SOB or chest pain Exam (Progress Note) - Constitutional Vitals: Period Temp Pulse Resp BP Sys/Velasquez Pulse Ox Last 24 Hr 97.4 F-98.6 F 75-88 18-22 121-141/75-103 92-97 General appearance: no acute distress, over weight - Head Head exam: Present: normal inspection, normocephalic - Eye Eye exam: Present: other (lids and conjunctiva unremarkable). Absent: scleral icterus - ENT ENT exam: Present: normal exam, normal oropharynx - Neck Neck exam: Present: normal inspection - Respiratory Respiratory exam: Present: clear to auscultation bilaterally. Absent: rales, rhonchi, wheezes - Cardiovascular Cardiovascular exam: Present: regular rate and rhythm. Absent: diastolic murmur , JVD, systolic murmur - GI/Abdominal GI/Abdominal exam: Present: normal bowel sounds, tenderness, soft. Absent: ascites, distended, mass, organomegaly - Extremities Exam Extremities exam: Present: normal inspection, full ROM - Back Exam Back exam: Present: normal inspection - Neurological Exam Neurological exam: Present: alert, oriented X3 - Psychiatric Psychiatric exam: Present: normal affect, normal mood - Skin Skin exam: Present: normal color, warm, dry Results - Labs CBC & BMP: 04/12/16 03:50 04/12/16 03:50 Lab Results: I have reviewed the past 24 hour labs Specialty Discharge - Follow Up or Referrals
[2016-04-12] MEDS: ONDANSETRON 4 MG/2 ML VIAL IV PRN (14:13)
[2016-04-12] MEDS: ZALEPLON 5 MG CAPSULE PO SCH (20:57)
[2016-04-13] MEDS: SODIUM CHLOR 0.9% KCL 20 MEQ 20 MEQ/1,000 ML BAG IV SCH ×4 (01:33→17:27)
[2016-04-13] MEDS: HYDROmorphone 2 MG/1 ML VIAL IV PRN ×5 (04:29→20:43)
[2016-04-13 05:38] LABS: Basophils % 0.4 % (0.0-0.8); Eosinophils # 0.2 10*3/uL (0.0-0.87); Eosinophils % 3.3 % (0.00-10.9); Hematocrit 43.5 VOL% (42.0-52.0); Hemoglobin 14.4 GM/DL (14.0-18.0); Immature Granulocytes % 0.2 %; Immature Granulocytes Absolute 0.01 #; Lymphocytes # 1.2 10*3/uL (1.4-4.0); Mean Corpuscular HGB Conc 33.1 GM/DL (32-36); Mean Corpuscular Hemoglobin 34 PG (27-34); Mean Corpuscular Volume 103.6 FL (87-102); Mean Platelet Volume 11.8 FL (9.6-12.0); Monocytes # 0.6 10*3/uL (0.11-0.8); Monocytes % 11.6 % (1.7-12.7); Neutrophils # 3.5 10*3/uL (1.4-7.4); Neutrophils % 63.5 % (38.7-73.9); Platelet Count 73 T/CUMM (130-400); Red Cell Distribution Width 13.2 % (9.3-17.3); White Blood Count 5.5 T/CUMM (4-12)
[2016-04-13 06:02] LABS: Band Neutrophils 1 % (0-10); Eosinophils 2 % (0-10); Hypochromasia Slight; Lymphocytes 17 % (20-55); Platelet Estimate Decreased; Segmented Neutrophils 73 % (50-85); Total Cells Counted 100
[2016-04-13 06:10] LABS: Calcium 8.2 MG/DL (8.5-10.1); Osmolality,Calculated 281.8 MOS/KG (273-304); Potassium 4.7 MMOL/L (3.5-5.1)
[2016-04-13] MEDS: amLODIPine 5 MG TABLET PO SCH (08:15)
[2016-04-13] MEDS: LORazepam 1 MG TABLET PO SCH ×3 (08:15→20:43)
[2016-04-13] MEDS: BENAZEPRIL 10 MG TABLET PO SCH (08:16)
[2016-04-13] MEDS: SERTRALINE 100 MG TABLET PO SCH (08:16)
[2016-04-13] MEDS: DOCUSATE SODIUM 100 MG CAPSULE PO SCH ×2 (08:16→20:43)
[2016-04-13] MEDS: PANTOPRAZOLE 40 MG TABLET PO SCH (08:16)
--- NOTE | 2016-04-13 08:17 | Family Practice Progress Note ---
Family Practice - PN: Subj Interval history: Patient continues to slowly improve.. States that his pain is less but still present over the epigastric region. His physical exam is much improved he has much less tenderness on palpation of the epigastric region. His amylase and lipase are back to normal levels. This is a lab studies are normal. The remainder of his physical examination is stable. Hopefully can resume diet in a.m. Exam (Progress Note) - Constitutional Vitals: Period Temp Pulse Resp BP Sys/Velasquez Pulse Ox Last 24 Hr 97.5 F-98.2 F 78-87 20-20 120-157/79-93 93-97 Results - Labs CBC & BMP: 04/13/16 05:10 04/13/16 05:10 Assessment and Plan (1) Acute pancreatitis Status: Acute Assessment and plan: We will admit for IV fluids pain control and obtain a GI consult Current Visit: No Qualifiers: Pancreatitis type: alcohol induced (2) Substance abuse Status: Chronic Assessment and plan: We will monitor for signs of substance withdrawal Current Visit: Yes (3) Bipolar disorder Status: Chronic Assessment and plan: We will resume home medications Current Visit: Yes (4) Obstructive sleep apnea Status: Chronic Assessment and plan: We will resume CPAP and monitor Current Visit: Yes (5) Hypertension Status: Chronic Assessment and plan: We will resume home meds and monitor Current Visit: Yes (6) Hyperlipidemia Status: Chronic Assessment and plan: We will resume home meds and monitor Current Visit: Yes Quality Measures - Stroke Symptom Onset Unknown: No Specialty Discharge - Follow Up or Referrals
--- NOTE | 2016-04-13 09:08 | Gastrointestinal Progress Note ---
Assessment and Plan (1) Acute pancreatitis Status: Acute Assessment and plan: 04/13-Pain improved, no nausea, vomiting. Tolerating clear liquids. Lipase 237. Advance diet to full liquids when pt feels he is ready. Plan and addendum to follow by Dr Cortez. 04/12-Pain improved slighlty from baseline, still requiring narcotics regularly. Lipase 280. Continue with clear liquid diet at this time. Plan and addendum to follow by Dr Cortez. 04/09-Two day history of LUQ pain with nausea, vomiting with hx of pancreatitis in December 2015, with hx of ETOH. Lipase 79054 on admission. Abd US is pending at present time. Plan and addendum to follow by Dr Cortez. Current Visit: No Qualifiers: Pancreatitis type: alcohol induced (2) Rectal bleeding Status: Acute Assessment and plan: 04/09-Onset of bright red bleeding w/o clots x 2 days. No lower abd pain. Hgb stable at 17.9. No prior endoscopy. Plan and addendum to follow by Dr Cortez. Current Visit: Yes Gastroenterology - PN: Subj Interval history: CC: Pancreatitis Pt is seen, awake, alert, sitting up in bed. He states he is feeling better today. He is having less pain, afebrile, denies nausea or vomiting. He states he will continue no clear liquids today however would like to try to advance to grits/full liquids in the morning. Abdomen is soft, nontender. Lipase 237. ROS: Denies SOB or chest pain Exam (Progress Note) - Constitutional Vitals: Period Temp Pulse Resp BP Sys/Velasquez Pulse Ox Last 24 Hr 97.5 F-98.2 F 78-87 20-20 120-157/79-93 93-97 General appearance: normal weight, no acute distress - Head Head exam: Present: normal inspection, normocephalic - Eye Eye exam: Present: other (lids and conjunctiva unremarkable). Absent: scleral icterus - ENT ENT exam: Present: normal exam, normal oropharynx - Neck Neck exam: Present: normal inspection - Respiratory Respiratory exam: Present: clear to auscultation bilaterally. Absent: rales, rhonchi, wheezes - Cardiovascular Cardiovascular exam: Present: regular rate and rhythm. Absent: diastolic murmur , JVD, systolic murmur - GI/Abdominal GI/Abdominal exam: Present: normal bowel sounds, soft. Absent: ascites, distended, mass, organomegaly, tenderness - Extremities Exam Extremities exam: Present: normal inspection, full ROM - Back Exam Back exam: Present: normal inspection - Neurological Exam Neurological exam: Present: alert, oriented X3 - Psychiatric Psychiatric exam: Present: normal affect, normal mood - Skin Skin exam: Present: normal color, warm, dry Results - Labs CBC & BMP: 04/13/16 05:10 04/13/16 05:10 Lab Results: I have reviewed the past 24 hour labs Specialty Discharge - Follow Up or Referrals
[2016-04-13] MEDS: ZALEPLON 5 MG CAPSULE PO SCH (20:43)
[2016-04-14] MEDS: HYDROmorphone 2 MG/1 ML VIAL IV PRN ×6 (00:38→22:07)
[2016-04-14] MEDS: SODIUM CHLOR 0.9% KCL 20 MEQ 20 MEQ/1,000 ML BAG IV SCH ×3 (01:20→18:12)
[2016-04-14 07:27] LABS: Calcium 8.3 MG/DL (8.5-10.1); Potassium 4.5 MMOL/L (3.5-5.1)
--- NOTE | 2016-04-14 07:58 | Family Practice Progress Note ---
Family Practice - PN: Subj Interval history: Patient states that he continues to have significant epigastric abdominal pain with nausea. States she has stayed on full liquids as he does not think he can tolerate the other food substance. His friend who is staying in room with him states that he was up most in with pain and nausea. His lab studies are stable. On previous admission it took a significant time for the epigastric pain and nausea to resolve. He appears to have significant pain on palpation over the epigastric region. We will obtain an abdominal CT today for completeness. Will continue liquids hopefully can advance soon. Heart regular rate and rhythm lungs are clear to auscultation abdomen is soft with epigastric tenderness as noted above. Exam (Progress Note) - Constitutional Vitals: Period Temp Pulse Resp BP Sys/Velasquez Pulse Ox Last 24 Hr 97.2 F-98.7 F 74-91 18-20 105-155/78-98 94-97 Results - Labs CBC & BMP: 04/13/16 05:10 04/14/16 05:42 Assessment and Plan (1) Acute pancreatitis Status: Acute Assessment and plan: We will admit for IV fluids pain control and obtain a GI consult Current Visit: No Qualifiers: Pancreatitis type: alcohol induced (2) Substance abuse Status: Chronic Assessment and plan: We will monitor for signs of substance withdrawal Current Visit: Yes (3) Bipolar disorder Status: Chronic Assessment and plan: We will resume home medications Current Visit: Yes (4) Obstructive sleep apnea Status: Chronic Assessment and plan: We will resume CPAP and monitor Current Visit: Yes (5) Hypertension Status: Chronic Assessment and plan: We will resume home meds and monitor Current Visit: Yes (6) Hyperlipidemia Status: Chronic Assessment and plan: We will resume home meds and monitor Current Visit: Yes Quality Measures - Stroke Symptom Onset Unknown: No Specialty Discharge - Follow Up or Referrals
--- NOTE | 2016-04-14 09:12 | Gastrointestinal Progress Note ---
Assessment and Plan (1) Acute pancreatitis Status: Acute Assessment and plan: 04/14-Pain increased overnight. Afebrile. Lipase 207. Unable to advance diet. CT of abdomen repeated today and results pending. Plan and addendum to follow by Dr Cortez. 04/13-Pain improved, no nausea, vomiting. Tolerating clear liquids. Lipase 237. Advance diet to full liquids when pt feels he is ready. Plan and addendum to follow by Dr Cortez. 04/12-Pain improved slighlty from baseline, still requiring narcotics regularly. Lipase 280. Continue with clear liquid diet at this time. Plan and addendum to follow by Dr Cortez. 04/09-Two day history of LUQ pain with nausea, vomiting with hx of pancreatitis in December 2015, with hx of ETOH. Lipase 47650 on admission. Abd US is pending at present time. Plan and addendum to follow by Dr Cortez. Current Visit: No Qualifiers: Pancreatitis type: alcohol induced (2) Rectal bleeding Status: Acute Assessment and plan: 04/09-Onset of bright red bleeding w/o clots x 2 days. No lower abd pain. Hgb stable at 17.9. No prior endoscopy. Plan and addendum to follow by Dr Cortez. Current Visit: Yes Gastroenterology - PN: Subj Interval history: CC: Pancreatitis Pt is seen, awake, alert, however states he is not feeling well today. He had increase in abdominal pain overnight. Denies any nausea or vomiting. States he is tolerating clear liquids but he cant take in more than that at this time. Abdomen is soft, mild tenderness. He has had his CT repeated this morning by Dr Sauceda with results still pending. Lipase is 207. ROS: Denies SOB or chest pain Exam (Progress Note) - Constitutional Vitals: Period Temp Pulse Resp BP Sys/Velasquez Pulse Ox Last 24 Hr 97.2 F-98.7 F 74-91 18-20 105-155/78-98 94-97 General appearance: over weight - Head Head exam: Present: normal inspection, normocephalic - Eye Eye exam: Present: other (lids and conjunctiva unremarkable). Absent: scleral icterus - ENT ENT exam: Present: normal exam, normal oropharynx - Neck Neck exam: Present: normal inspection - Respiratory Respiratory exam: Present: clear to auscultation bilaterally. Absent: rales, rhonchi, wheezes - Cardiovascular Cardiovascular exam: Present: regular rate and rhythm. Absent: diastolic murmur , JVD, systolic murmur - GI/Abdominal GI/Abdominal exam: Present: normal bowel sounds, soft. Absent: ascites, distended, mass, organomegaly, tenderness - Extremities Exam Extremities exam: Present: normal inspection, full ROM - Back Exam Back exam: Present: normal inspection - Neurological Exam Neurological exam: Present: alert, oriented X3 - Psychiatric Psychiatric exam: Present: normal affect, normal mood - Skin Skin exam: Present: normal color, warm, dry Results - Labs CBC & BMP: 04/13/16 05:10 04/14/16 05:42 Lab Results: I have reviewed the past 24 hour labs Specialty Discharge - Follow Up or Referrals
[2016-04-14] MEDS: LORazepam 1 MG TABLET PO SCH ×3 (09:17→22:06)
[2016-04-14] MEDS: amLODIPine 5 MG TABLET PO SCH (09:17)
[2016-04-14] MEDS: SERTRALINE 100 MG TABLET PO SCH (09:18)
[2016-04-14] MEDS: DOCUSATE SODIUM 100 MG CAPSULE PO SCH ×2 (09:18→22:07)
[2016-04-14] MEDS: BENAZEPRIL 10 MG TABLET PO SCH (09:19)
[2016-04-14] MEDS: PANTOPRAZOLE 40 MG TABLET PO SCH (09:20)
--- NOTE | 2016-04-14 09:52 | CT Report ---
History: Persistent epigastric abdominal pain Date: 04/14/2016 Study: CT abdomen without IV contrast Comparison exam: Contrast CT abdomen October 31, 2015 Technique: The CT exam was performed using one or more of the following dose reduction techniques: Automated exposure control and adjustment of the mA and/or kV according to patient size. Spiral CT sections were obtained from the lung bases to the iliac crests without contrast. Total DLP measures 926.9 mGy*cm. Findings: There is mild platelike subsegmental atelectasis in the lung bases. There is a tiny left pleural effusion. There is moderate diffuse fatty infiltration of the otherwise unremarkable liver. The gallbladder is contracted. There is no biliary dilatation. There is splenomegaly as on the previous study. No focal splenic mass is seen. There is hazy inflammation in the peripancreatic fat compatible with changes of recent pancreatitis. These changes are overall slightly less prominent than on the comparison study. There is no jamin pseudocyst formation. There is some mild shotty peripancreatic lymphadenopathy as before. There is no radiopaque renal or ureteral stone or hydronephrosis. The kidneys and adrenal glands are unremarkable in noncontrast CT appearance. There is no aortic aneurysm. There is no bowel obstruction or pneumoperitoneum. There is a ventral wall periumbilical hernia containing only fat as on the previous study. There is no acute osseous abnormality. Impression: Improving changes of pancreatitis compared to the previous study. Hepatic steatosis. Diffuse splenomegaly. Periumbilical hernia PROCEDURE INTERPRETED AT [facility] DEPARTMENT OF RADIOLOGY Final Report Signed by: Dr. Bella Cortez
[2016-04-14] MEDS ORDERED: MAGNESIUM HYDROXIDE SUSP 30 ML UDCUP PO PRN (13:43)
[2016-04-14] MEDS ORDERED: MAGNESIUM HYDROXIDE SUSP 30 ML UDCUP PO ONE (14:30)
[2016-04-14] MEDS: ZALEPLON 5 MG CAPSULE PO SCH (22:07)
[2016-04-15] MEDS: SODIUM CHLOR 0.9% KCL 20 MEQ 20 MEQ/1,000 ML BAG IV SCH ×3 (03:44→20:24)
[2016-04-15] MEDS: HYDROmorphone 2 MG/1 ML VIAL IV PRN ×6 (04:01→22:57)
[2016-04-15 05:07] LABS: Basophils % 0.5 % (0.0-0.8); Eosinophils # 0.2 10*3/uL (0.0-0.87); Eosinophils % 2.9 % (0.00-10.9); Hematocrit 42.1 VOL% (42.0-52.0); Immature Granulocytes % 0.2 %; Immature Granulocytes Absolute 0.01 #; Lymphocytes # 1.3 10*3/uL (1.4-4.0); Lymphocytes % 22.4 % (21.2-54.2); Mean Corpuscular HGB Conc 33.3 GM/DL (32-36); Mean Corpuscular Hemoglobin 34 PG (27-34); Mean Platelet Volume 12.8 FL (9.6-12.0); Monocytes # 0.9 10*3/uL (0.11-0.8); Monocytes % 16.8 % (1.7-12.7); Neutrophils # 3.2 10*3/uL (1.4-7.4); Neutrophils % 57.2 % (38.7-73.9); Platelet Count 67 T/CUMM (130-400); Red Blood Count 4.17 MC/CUMM (3.8-5.5); Red Cell Distribution Width 12.9 % (9.3-17.3); White Blood Count 5.6 T/CUMM (4-12)
[2016-04-15 05:38] LABS: Albumin 2.6 G/DL (3.4-5.0); Bilirubin,Total 0.8 MG/DL (0.2-1.0); Calcium 8.3 MG/DL (8.5-10.1); Hypochromasia 1+; Lymphocytes 23 % (20-55); Osmolality,Calculated 285.7 MOS/KG (273-304); Platelet Estimate Decreased; Segmented Neutrophils 56 % (50-85); Total Cells Counted 100; Total Protein 5.6 G/DL (6.4-8.3)
--- NOTE | 2016-04-15 08:11 | Family Practice Progress Note ---
Family Practice - PN: Subj Interval history: Patient states that he is somewhat improved.. Still complaining of epigastric abdominal pain. His CT scan reveals significant improvement in his previously noted pancreatic pathology. States that he still develops nausea if he tries to advance diet. Previous admissions this to a significant amount of time for the inflammatory changes to resolve. His lab studies are back to normal. Advised patient that we need to advance diet and increase activity. Not really performing any active treatment other than IV fluids and pain medications. Go to try to advance diet and discharge in a.m. if possible. Even though patient states he is not consuming alcohol he did have positive opioids and cannabinoids and barbiturates on drug screen. I have treated his family for over 30 years. I have maintained treatment of this patient in view of that relationship.. Spent significant time today advising patient if he did not start taking care of himself that I was going to disengage. Will advance diet as stated above and hopefully discharge as soon as possible. Physical exam is stable other than for persistent epigastric pain Exam (Progress Note) - Constitutional Vitals: Period Temp Pulse Resp BP Sys/Velasquez Pulse Ox Last 24 Hr 97.3 F-99.5 F 79-108 20-20 120-156/81-99 92-98 Results - Labs CBC & BMP: 04/15/16 04:56 04/15/16 04:56 Assessment and Plan (1) Acute pancreatitis Status: Acute Assessment and plan: We will admit for IV fluids pain control and obtain a GI consult Current Visit: No Qualifiers: Pancreatitis type: alcohol induced (2) Substance abuse Status: Chronic Assessment and plan: We will monitor for signs of substance withdrawal Current Visit: Yes (3) Bipolar disorder Status: Chronic Assessment and plan: We will resume home medications Current Visit: Yes (4) Obstructive sleep apnea Status: Chronic Assessment and plan: We will resume CPAP and monitor Current Visit: Yes (5) Hypertension Status: Chronic Assessment and plan: We will resume home meds and monitor Current Visit: Yes (6) Hyperlipidemia Status: Chronic Assessment and plan: We will resume home meds and monitor Current Visit: Yes Quality Measures - Stroke Symptom Onset Unknown: No Specialty Discharge - Follow Up or Referrals
[2016-04-15] MEDS: BENAZEPRIL 10 MG TABLET PO SCH (08:35)
[2016-04-15] MEDS: PANTOPRAZOLE 40 MG TABLET PO SCH (08:35)
[2016-04-15] MEDS: DOCUSATE SODIUM 100 MG CAPSULE PO SCH ×2 (08:35→20:23)
[2016-04-15] MEDS: amLODIPine 5 MG TABLET PO SCH (08:35)
[2016-04-15] MEDS: SERTRALINE 100 MG TABLET PO SCH (08:36)
[2016-04-15] MEDS: LORazepam 1 MG TABLET PO SCH ×3 (08:36→20:23)
[2016-04-15] MEDS: ONDANSETRON 4 MG/2 ML VIAL IV PRN (13:23)
--- NOTE | 2016-04-15 18:08 | Gastrointestinal Progress Note ---
Assessment and Plan (1) Acute pancreatitis Status: Acute Assessment and plan: 04/15 patient appears to be clinically improved. He is still asking frequently for IV pain medicine and I think there is probably some drug-seeking behavior with this. Will change to oral pain medications and use decreased dose of Dilaudid IV as backup. Could probably discharge tomorrow if tolerating. Current Visit: No Qualifiers: Pancreatitis type: alcohol induced Gastroenterology - PN: Subj Interval history: Patient appears comfortable but still complaining of intermittent abdominal pain requesting IV Dilaudid. Tolerating full liquid diet. Exam (Progress Note) - Constitutional Vitals: Period Temp Pulse Resp BP Sys/Velasquez Pulse Ox Last 24 Hr 97.7 F-99.5 F 71-108 20-20 120-156/81-104 92-98 General appearance: no acute distress - Head Head exam: Present: normocephalic, atraumatic - Eye Eye exam: Absent: EOMI, scleral icterus - Respiratory Respiratory exam: Present: clear to auscultation bilaterally - Cardiovascular Cardiovascular exam: Present: regular rate and rhythm. Absent: gallop, rubs - GI/Abdominal GI/Abdominal exam: Present: normal bowel sounds, soft. Absent: distended, tenderness - Extremities Exam Extremities exam: Absent: calf tenderness, edema - Neurological Exam Neurological exam: Present: alert, oriented X3, CN II-XII intact. Absent: motor sensory deficit Results - Labs CBC & BMP: 04/15/16 04:56 04/15/16 04:56 Lab Results: I have reviewed the past 24 hour labs Specialty Discharge - Follow Up or Referrals
[2016-04-15] MEDS: ZALEPLON 5 MG CAPSULE PO SCH (20:23)
[2016-04-16] MEDS: SODIUM CHLOR 0.9% KCL 20 MEQ 20 MEQ/1,000 ML BAG IV SCH (05:38)
[2016-04-16 06:09] LABS: Basophils % 0.4 % (0.0-0.8); Eosinophils # 0.2 10*3/uL (0.0-0.87); Eosinophils % 3.9 % (0.00-10.9); Hematocrit 41.9 VOL% (42.0-52.0); Hemoglobin 14.2 GM/DL (14.0-18.0); Immature Granulocytes % 0.2 %; Immature Granulocytes Absolute 0.01 #; Lymphocytes # 1.8 10*3/uL (1.4-4.0); Lymphocytes % 35.6 % (21.2-54.2); Mean Corpuscular HGB Conc 33.9 GM/DL (32-36); Mean Corpuscular Hemoglobin 34 PG (27-34); Mean Corpuscular Volume 100.7 FL (87-102); Mean Platelet Volume 12.7 FL (9.6-12.0); Monocytes # 0.7 10*3/uL (0.11-0.8); Monocytes % 12.8 % (1.7-12.7); Neutrophils # 2.4 10*3/uL (1.4-7.4); Neutrophils % 47.1 % (38.7-73.9); Platelet Count 71 T/CUMM (130-400); Red Blood Count 4.16 MC/CUMM (3.8-5.5); White Blood Count 5.2 T/CUMM (4-12)
[2016-04-16 06:33] LABS: Hypochromasia 1+; Platelet Estimate Decreased
[2016-04-16] MEDS: HYDROmorphone 2 MG/1 ML VIAL IV PRN ×4 (08:17→23:09)
[2016-04-16] MEDS: BENAZEPRIL 10 MG TABLET PO SCH (08:18)
[2016-04-16] MEDS: PANTOPRAZOLE 40 MG TABLET PO SCH (08:18)
[2016-04-16] MEDS: DOCUSATE SODIUM 100 MG CAPSULE PO SCH ×2 (08:18→20:25)
[2016-04-16] MEDS: SERTRALINE 100 MG TABLET PO SCH (08:18)
[2016-04-16] MEDS: amLODIPine 5 MG TABLET PO SCH (08:18)
[2016-04-16] MEDS: LORazepam 1 MG TABLET PO SCH ×3 (08:18→20:25)
--- NOTE | 2016-04-16 08:26 | Family Practice Progress Note ---
Family Practice - PN: Subj Interval history: Patient still complaining of pain but does feel that recently improving. Still not eating. He has done almost no activity since admission. I planned to discharge this a.m. but family states that he is still not eating and ambulating and are not able to care for him in this state. Advised that we will advance diet and activity today and family will need to make arrangements to care for this patient. Advised patient that he must ambulate in room and valentine and must attempt to advance diet. Previously took extended period of time before abdominal pain completely resolved and he was able to go back to a regular diet. I reviewed condition in detail with patient and family. Again advised patient that he must stop abusing drugs. His platelet count has been decreased on this admission in was somewhat similar decreased previously. It has been stable throughout admission and made patient and family aware of this. There is no question it is related to his history of alcohol and drug abuse. Advised patient that we need to discharge in a.m. and he needs to make preparations. Patient states she understands and will comply. Physical exam is stable except for some subjective epigastric abdominal pain Exam (Progress Note) - Constitutional Vitals: Period Temp Pulse Resp BP Sys/Velasquez Pulse Ox Last 24 Hr 98 F-98.7 F 71-81 19-20 111-151/73-99 92-98 Results - Labs CBC & BMP: 04/16/16 05:01 04/15/16 04:56 Assessment and Plan (1) Acute pancreatitis Status: Acute Assessment and plan: We will admit for IV fluids pain control and obtain a GI consult Current Visit: No Qualifiers: Pancreatitis type: alcohol induced (2) Substance abuse Status: Chronic Assessment and plan: We will monitor for signs of substance withdrawal Current Visit: Yes (3) Bipolar disorder Status: Chronic Assessment and plan: We will resume home medications Current Visit: Yes (4) Obstructive sleep apnea Status: Chronic Assessment and plan: We will resume CPAP and monitor Current Visit: Yes (5) Hypertension Status: Chronic Assessment and plan: We will resume home meds and monitor Current Visit: Yes (6) Hyperlipidemia Status: Chronic Assessment and plan: We will resume home meds and monitor Current Visit: Yes Quality Measures - Stroke Symptom Onset Unknown: No Specialty Discharge - Follow Up or Referrals
--- NOTE | 2016-04-16 13:44 | Gastrointestinal Progress Note ---
Assessment and Plan (1) Acute pancreatitis Status: Acute Assessment and plan: 04/15 patient appears to be clinically improved. He is still asking frequently for IV pain medicine and I think there is probably some drug-seeking behavior with this. Will change to oral pain medications and use decreased dose of Dilaudid IV as backup. Could probably discharge tomorrow if tolerating. 04/16 recent acute pancreatitis with clinical improvement. We are using oral narcotics with IV Dilaudid for backup pain. He does not have objective signs of poor pain control. Hopefully can be discharged tomorrow. Dr. Wilson is corporate relations manager this weekend if needed. Current Visit: No Qualifiers: Pancreatitis type: alcohol induced Gastroenterology - PN: Subj Interval history: Patient alert. He has tolerated soft diet but still having some upper abdominal pain. Admits that pain is definitely better the last couple days but still requests IV pain medications although frequency has decreased. Exam (Progress Note) - Constitutional Vitals: Period Temp Pulse Resp BP Sys/Velasquez Pulse Ox Last 24 Hr 98 F-98.7 F 75-81 19-20 111-142/70-95 92-98 General appearance: no acute distress, over weight - Head Head exam: Present: normocephalic, atraumatic - Eye Eye exam: Absent: scleral icterus Pupils: Present: BHUMIKA, normal accommodation - Respiratory Respiratory exam: Present: clear to auscultation bilaterally. Absent: wheezes - Cardiovascular Cardiovascular exam: Present: regular rate and rhythm. Absent: gallop, rubs - GI/Abdominal GI/Abdominal exam: Present: normal bowel sounds, tenderness (Mild with some voluntary guarding), soft. Absent: organomegaly - Extremities Exam Extremities exam: Absent: calf tenderness, edema - Neurological Exam Neurological exam: Present: alert, oriented X3, CN II-XII intact - Psychiatric Psychiatric exam: Present: normal affect, normal mood - Skin Skin exam: Present: warm, dry Results - Labs CBC & BMP: 04/16/16 05:01 04/15/16 04:56 Lab Results: I have reviewed the past 24 hour labs Specialty Discharge - Follow Up or Referrals
[2016-04-16] MEDS: ZALEPLON 5 MG CAPSULE PO SCH (20:25)
[2016-04-17] MEDS: HYDROmorphone 2 MG/1 ML VIAL IV PRN ×4 (05:15→20:04)
[2016-04-17 05:16] LABS: Basophils % 0.6 % (0.0-0.8); Eosinophils # 0.3 10*3/uL (0.0-0.87); Eosinophils % 3.9 % (0.00-10.9); Hematocrit 44.7 VOL% (42.0-52.0); Hemoglobin 14.6 GM/DL (14.0-18.0); Immature Granulocytes % 0.3 %; Immature Granulocytes Absolute 0.02 #; Lymphocytes # 2.1 10*3/uL (1.4-4.0); Lymphocytes % 30.5 % (21.2-54.2); Mean Corpuscular HGB Conc 32.7 GM/DL (32-36); Mean Corpuscular Hemoglobin 34 PG (27-34); Mean Platelet Volume 13.3 FL (9.6-12.0); Monocytes # 0.8 10*3/uL (0.11-0.8); Monocytes % 11.9 % (1.7-12.7); Neutrophils # 3.6 10*3/uL (1.4-7.4); Neutrophils % 52.8 % (38.7-73.9); Platelet Count 92 T/CUMM (130-400); Red Cell Distribution Width 12.8 % (9.3-17.3); White Blood Count 6.9 T/CUMM (4-12)
[2016-04-17 05:43] LABS: Calcium 8.2 MG/DL (8.5-10.1); Osmolality,Calculated 282.8 MOS/KG (273-304); Potassium 4.2 MMOL/L (3.5-5.1)
[2016-04-17 05:53] LABS: Hypochromasia 1+; Platelet Estimate Decreased
[2016-04-17] MEDS: PANTOPRAZOLE 40 MG TABLET PO SCH (08:33)
[2016-04-17] MEDS: amLODIPine 5 MG TABLET PO SCH (08:33)
[2016-04-17] MEDS: BENAZEPRIL 10 MG TABLET PO SCH (08:33)
[2016-04-17] MEDS: DOCUSATE SODIUM 100 MG CAPSULE PO SCH ×2 (08:33→20:58)
[2016-04-17] MEDS: SERTRALINE 100 MG TABLET PO SCH (08:34)
--- NOTE | 2016-04-17 10:38 | Gastrointestinal Progress Note ---
Assessment and Plan (1) Acute pancreatitis Status: Acute Assessment and plan: This patient is being seen for Dr. Cortez over the weekend as he is off call. Lipase levels are within normal limits, the patient states that his pain is back to its baseline from about 4 out of 10 in intensity. He is asking if he can be sent home with some medication, given his history of substance abuse and the fact that his pain is back to its baseline and that he does not take anything at home would tend to point to this being unnecessary. Think it might be reasonable to give him a small amount of tramadol if he wishes. If he re- presents with pancreatitis in the future and continues to deny drinking as an outpatient they might be reasonable to take out his gallbladder. He is certainly ready for discharge today. Current Visit: No Qualifiers: Pancreatitis type: alcohol induced (2) Alcohol abuse Status: Chronic Assessment and plan: Patient states that he has not been drinking recently and this is not the cause for his pancreatitis. This is somewhat at odds with the H&P information provided to Dr. Sauceda. I have suggested continued abstinence for him. Current Visit: No Gastroenterology - PN: Subj Interval history: Patient states that he has not been drinking lately to me. He is eating adequately, he would like to go home. He would also like to take some narcotics home with him. He states that his pain is at his baseline which is about a 4 out of 10 in intensity. I asked him to take something narcotics chronically at home and he does not. We will not be giving him any narcotics to take home with him but I did suggest perhaps tramadol might be reasonable. Exam (Progress Note) - Constitutional Vitals: Period Temp Pulse Resp BP Sys/Velasquez Pulse Ox Last 24 Hr 97.5 F-98.4 F 70-105 16-20 121-161/68-98 94-98 General appearance: no acute distress, other (Patient appears somewhat worried/ anxious) - Head Head exam: Present: normocephalic - Eye Eye exam: Present: EOMI - Respiratory Respiratory exam: Present: clear to auscultation bilaterally. Absent: rhonchi, stridor, wheezes - Cardiovascular Cardiovascular exam: Present: regular rate and rhythm - GI/Abdominal GI/Abdominal exam: Present: normal bowel sounds, soft. Absent: ascites, distended, guarding, tenderness - Neurological Exam Neurological exam: Present: alert, oriented X3 - Psychiatric Psychiatric exam: Present: normal affect, anxious - Skin Skin exam: Present: warm Results - Labs CBC & BMP: 04/17/16 05:06 04/17/16 05:06 Specialty Discharge - Follow Up or Referrals
[2016-04-17] MEDS: SODIUM CHLOR 0.9% KCL 20 MEQ 20 MEQ/1,000 ML BAG IV SCH (13:17)
--- NOTE | 2016-04-17 16:16 | Pain Management Consult Note ---
Assessment and Plan (1) Acute pancreatitis Problem details: Admitted with pancreatitis and abdominal pain Status: Acute Assessment and plan: The patient was admitted with pigmentation abdominal pain. His labs have returned back to normal. He has a history of alcoholism. I had a discussion with the patient today regarding the importance of coming off IV narcotics and weaning off narcotics altogether over the next day or so. I suspect that he can probably go home tomorrow or the next day. He is at a very high risk for opioids. He has both history of substance abuse as well as bipolar disorder, both putting him at high risk. Agree with thoughts of discharge with tramadol. I have back down the IV Dilaudid to every 6 hours. Consider discharge in the morning, if not then will wean opioids further tomorrow. Current Visit: No Qualifiers: Pancreatitis type: alcohol induced History of Present Illness Chief complaint: abdominal pain History of present illness: Mr. Clements is a 35 year old male complains of abdominal pain. It is a cramping constant aching pain that radiates to the back. He does note some improvement over time. Associated nausea and vomiting have improved. He has resolving pancreatitis. Home Medications Medication Instructions Recorded Confirmed Type Benazepril HCl 20 mg PO QAM 10/21/15 04/09/16 History Lorazepam [Ativan] 2 mg PO TID 10/21/15 04/09/16 History Sertraline HCl 100 mg PO QAM 10/21/15 04/09/16 History Zolpidem [Ambien] 10 mg PO BEDTIME 04/09/16 04/09/16 History Allergies Allergy/AdvReac Type Severity Reaction Status Date / Time Cefaclor [From Ceclor] AdvReac HIVES Verified 10/21/15 10:07 Medical,Surgical,& Family Hx - Medical History Cardio: History of: Hypertension Psychological: History of: Anxiety Disorders, Bipolar Disorder, Psychiatric Problems (MANIC DEPRESSION) HEENT: History of: Eye Problem (wears glasses), HEENT Problems (RINGING IN EARS WHEN HAS SINUS PROBLEMS) Endocrine: History of: Dyslipidemia Rheumatology: History of;: Gout (FEET), Psoriasis Respiratory: History of: Obstructive Sleep Apnea (CPAP AT NIGHT) Gastrointestinal: History of: Diverticulitis/ Diverticulosis, GERD, GI Problems (abd hernia at naval) Hematology: History of: Anemia - Surgical History Thoracic Surgeries: Patient denies;: Organ Transplant HEENT Surgeries: Surgical HX of: Tonsilectomy & Adenoidectomy (adenoidectomy) Patient denies: Eye Surgery Abdominal Surgeries: Patient denies: Abdominal Surgery, Appendectomy, Cholecystectomy, Colonoscopy , Gastric Bypass Surgery, EGD, Hernia Repair - Family History Family History: Reports;: Family Heart Disease (GRANDPARENTS (PAT AND MAT)), Family Hypertension Denies;: Family Anesthesia Reaction, Family Cancer, Family Diabetes, Family Psychiatric Problems, Family Stroke - Social History Smoking Status: Never smoker Frequency of Alcohol Use: None Type of Drug Use: None Quality Measures - Stroke Symptom Onset Unknown: No - Constitutional Constitutional: Present: fatigue, lethargy - Gastrointestinal Gastrointestinal: Present: abdominal pain, bloating, constipation (improving) Exam - Constitutional Vitals: Period Temp Pulse Resp BP Sys/Velasquez Pulse Ox Last 24 Hr 97.5 F-98.4 F 70-105 16-20 121-161/68-98 94-98 General appearance: no acute distress, over weight - Eye Eye exam: Present: EOMI - Neck Neck exam: Present: normal inspection - Respiratory Respiratory exam: Present: clear to auscultation bilaterally - Cardiovascular Cardiovascular exam: Present: RRR - GI/Abdominal GI/Abdominal exam: Present: tenderness, soft - Back Exam Back exam: Present: CVA tenderness (L), CVA tenderness (R) Results - Labs CBC & BMP: 04/17/16 05:06 04/17/16 05:06 Specialty Discharge - Follow Up or Referrals
--- NOTE | 2016-04-17 18:12 | Internal Med Progress Note ---
Assessment and Plan (1) Pancreatitis Status: Acute Current Visit: Yes Qualifiers: Chronicity: acute Pancreatitis type: alcohol induced (2) Bipolar disorder Status: Chronic Current Visit: Yes (3) Hypertension Status: Chronic Current Visit: Yes (4) Alcohol abuse Problem details: He reports not drinking in three months. Status: Chronic Current Visit: No (5) Substance abuse Status: Chronic Current Visit: Yes Internal Medicine - PN: Subj Interval history: This is a 35 year old male patient of Dr. Sauceda with history of alcohol abuse and multiple recurrent episodes of pancreatitis, Bipoloar, HTN, acid reflux, who presented to ER with another episode of acute pancreatitis. He reports being sober for the last three months since the last episode of pancreatitis. However, he was placed on IV Dilaudid and still wants it every four hours over the last several days, although the lipase level has trended down into normal range. He still reports tenderness to left upper quadrant abdomen. Have consulted Dr. Jenkins to help taper off Dilaudid. He will be sent home on Tramadol. Discussed with the patient. Very concerned that he is wanting to trade alcohol for opiates and other substances. His urine tox screen was positive for opiates, marijuana, and benzos. Exam (Progress Note) - Constitutional Vitals: Period Temp Pulse Resp BP Sys/Velasquez Pulse Ox Last 24 Hr 97.3 F-98.4 F 70-105 16-20 121-163/68-106 94-98 General appearance: no acute distress - Respiratory Respiratory exam: Present: clear to auscultation bilaterally - Cardiovascular Cardiovascular exam: Present: regular rate and rhythm - GI/Abdominal GI/Abdominal exam: Present: tenderness (left upper quadrant), soft - Extremities Exam Extremities exam: Absent: edema - Neurological Exam Neurological exam: Present: other (awake) - Psychiatric Psychiatric exam: Present: flat affect - Skin Skin exam: Present: warm, dry Results - Labs CBC & BMP: 04/17/16 05:06 04/18/16 04:25 - Diagnostic Findings Procedure: CT Abdomen and Pelvis: report reviewed by me (improving pancreatitis) Quality Measures - Stroke Symptom Onset Unknown: No Specialty Discharge - Follow Up or Referrals
[2016-04-18] MEDS: ALBUTEROL/IPRATROPIUM 3 ML NEB RESP TX SCH ×4 (00:56→19:20)
[2016-04-18 05:46] LABS: Calcium 8.7 MG/DL (8.5-10.1); Osmolality,Calculated 280.8 MOS/KG (273-304)
--- NOTE | 2016-04-18 09:07 | Event Note ---
Getting infrequent doses Dilaudid. Reasonable to consider discharge soon. If discharged today will need limited number of Tramadol for any residual pain he might have over next few days.
[2016-04-18] MEDS ORDERED: HYDROmorphone 2 MG/1 ML VIAL IV PRN (09:08)
[2016-04-18] MEDS: SODIUM CHLOR 0.9% KCL 20 MEQ 20 MEQ/1,000 ML BAG IV SCH ×2 (09:08→16:42)
[2016-04-18] MEDS: HYDROmorphone 2 MG/1 ML VIAL IV PRN (09:08)
[2016-04-18] MEDS: PANTOPRAZOLE 40 MG TABLET PO SCH (09:09)
[2016-04-18] MEDS: DOCUSATE SODIUM 100 MG CAPSULE PO SCH ×2 (09:09→20:34)
[2016-04-18] MEDS: SERTRALINE 100 MG TABLET PO SCH (09:09)
[2016-04-18] MEDS: amLODIPine 5 MG TABLET PO SCH (09:09)
[2016-04-18] MEDS: BENAZEPRIL 10 MG TABLET PO SCH (09:09)
--- NOTE | 2016-04-18 10:24 | Gastrointestinal Progress Note ---
Assessment and Plan (1) Acute pancreatitis Problem details: Admitted with pancreatitis and abdominal pain Status: Acute Assessment and plan: This patient is being seen for Dr. Cortez over the weekend as he is off call. Lipase levels are within normal limits, the patient states that his pain is back to its baseline from about 4 out of 10 in intensity. He is asking if he can be sent home with some medication, given his history of substance abuse and the fact that his pain is back to its baseline and that he does not take anything at home would tend to point to this being unnecessary. Think it might be reasonable to give him a small amount of tramadol if he wishes. If he re- presents with pancreatitis in the future and continues to deny drinking as an outpatient they might be reasonable to take out his gallbladder. He is certainly ready for discharge today. 04/18/16--I anticipated discharge yesterday, the patient's pain unfortunately, he states, has worsened up to a 7 out of 10. He appears to be quite comfortable in the bed but this may be because he was given both his Dilaudid and oral narcotics. Patient states that he is anxious and usually takes Ativan as an outpatient and would like to start taking this again. He is on no narcotics as an outpatient, just Zoloft and Ativan. Dr. Tobin has not discontinued the narcotics and started tramadol. Pain management has been consulted who agrees with switching the patient over to tramadol alone. The plan is to keep the patient until tomorrow and potentially discharge with Dr. Sauceda. Dr. Cortez will be back as well. I am checking a lipase level today and tomorrow as well. I have adjusted the diet to make this low-fat which I suggest he pursue for the next 2 weeks. Current Visit: No Qualifiers: Pancreatitis type: alcohol induced (2) Alcohol abuse Status: Chronic Assessment and plan: Patient states that he has not been drinking recently and this is not the cause for his pancreatitis. This is somewhat at odds with the H&P information provided to Dr. Sauceda. I have suggested continued abstinence for him. 04/18/16--I suggest continued abstinence for this patient. Current Visit: No Gastroenterology - PN: Subj Interval history: Patient states that his pain is up from a 4 at baseline to now a 7 out of 10 in intensity. He is still getting some Dilaudid 1 mg every 8 hours at this point and is starting to take oral [place] as well. He states that he does take Ativan as an outpatient and I wonder if his blood pressure and anxiety are perhaps leading him to focus on the small amount of residual pain that he has left at baseline. He does not take any tramadol or narcotics as an outpatient typically , he is on his Ativan and Zoloft for his chronic pain. His lipase levels last checked were normal, I am checking these again today and tomorrow morning. Exam (Progress Note) - Constitutional Vitals: Period Temp Pulse Resp BP Sys/Velasquez Pulse Ox Last 24 Hr 97.3 F-98.3 F 72-86 16-20 127-163/74-106 92-100 General appearance: no acute distress - Head Head exam: Present: normocephalic - Eye Eye exam: Present: EOMI - Respiratory Respiratory exam: Present: clear to auscultation bilaterally - Cardiovascular Cardiovascular exam: Present: regular rate and rhythm - GI/Abdominal GI/Abdominal exam: Present: normal bowel sounds, soft - Neurological Exam Neurological exam: Present: alert, oriented X3, CN II-XII intact - Psychiatric Psychiatric exam: Present: normal affect, normal mood - Skin Skin exam: Present: warm Results - Labs CBC & BMP: 04/17/16 05:06 04/18/16 04:25 Specialty Discharge - Follow Up or Referrals
[2016-04-18] MEDS: traMADol 50 MG TABLET PO SCH ×3 (13:13→20:34)
--- NOTE | 2016-04-18 13:50 | Internal Med Progress Note ---
Assessment and Plan (1) Pancreatitis Status: Acute Current Visit: Yes Qualifiers: Chronicity: acute Pancreatitis type: alcohol induced (2) Bipolar disorder Status: Chronic Current Visit: Yes (3) Hypertension Status: Chronic Current Visit: Yes (4) Substance abuse Status: Chronic Current Visit: Yes (5) Alcohol abuse Problem details: He reports not drinking in three months. Status: Chronic Current Visit: No Internal Medicine - PN: Subj Interval history: This is a 35 year old male patient of Dr. Sauceda with history of alcohol abuse and multiple recurrent episodes of pancreatitis, Bipoloar, HTN, acid reflux, who presented to ER with another episode of acute pancreatitis. He reports being sober for the last three months since the last episode of pancreatitis. However, he was placed on IV Dilaudid and still wants it every four hours over the last several days, although the lipase level has trended down into normal range. He still reports tenderness to left upper quadrant abdomen. Have consulted Dr. Jenkins to help taper off Dilaudid. He will be sent home on Tramadol. Discussed with the patient. Very concerned that he is wanting to trade alcohol for opiates and other substances. His urine tox screen was positive for opiates, marijuana, and benzos. Starting Tramadol today, Tuesday. Exam (Progress Note) - Constitutional Vitals: Period Temp Pulse Resp BP Sys/Velasquez Pulse Ox Last 24 Hr 97.3 F-98.4 F 73-94 16-20 127-163/74-106 92-100 Exam: eneral appearance: no acute distress - Respiratory Respiratory exam: Present: clear to auscultation bilaterally - Cardiovascular Cardiovascular exam: Present: regular rate and rhythm - GI/Abdominal GI/Abdominal exam: Present: tenderness (left upper quadrant), soft - Extremities Exam Extremities exam: Absent: edema - Neurological Exam Neurological exam: Present: other (awake) - Psychiatric Psychiatric exam: Present: flat affect - Skin Skin exam: Present: warm, dry Vitals reviewed Results - Labs CBC & BMP: 04/17/16 05:06 04/18/16 04:25 Quality Measures - Stroke Symptom Onset Unknown: No Specialty Discharge - Follow Up or Referrals
[2016-04-19] MEDS: SODIUM CHLOR 0.9% KCL 20 MEQ 20 MEQ/1,000 ML BAG IV SCH
[2016-04-19] MEDS: ALBUTEROL/IPRATROPIUM 3 ML NEB RESP TX SCH ×2 (00:54→07:04)
[2016-04-19 05:25] LABS: Basophils % 0.7 % (0.0-0.8); Eosinophils # 0.2 10*3/uL (0.0-0.87); Eosinophils % 2.6 % (0.00-10.9); Hematocrit 42.9 VOL% (42.0-52.0); Hemoglobin 14.6 GM/DL (14.0-18.0); Immature Granulocytes % 0.5 %; Immature Granulocytes Absolute 0.03 #; Lymphocytes # 1.9 10*3/uL (1.4-4.0); Lymphocytes % 32.9 % (21.2-54.2); Mean Corpuscular Hemoglobin 34 PG (27-34); Mean Corpuscular Volume 98.4 FL (87-102); Mean Platelet Volume 12.9 FL (9.6-12.0); Monocytes # 0.6 10*3/uL (0.11-0.8); Monocytes % 10.5 % (1.7-12.7); Neutrophils % 52.8 % (38.7-73.9); Platelet Count 105 T/CUMM (130-400); Red Blood Count 4.36 MC/CUMM (3.8-5.5); Red Cell Distribution Width 12.6 % (9.3-17.3); White Blood Count 5.7 T/CUMM (4-12)
[2016-04-19 06:14] LABS: Alanine Aminotransferase 14 U/L (16-61); Albumin 2.7 G/DL (3.4-5.0); Alkaline Phosphatase 71 U/L (45-117); Aspartate Amino Transferase 14 U/L (0-37); Bilirubin,Total < 0.39 MG/DL (0.2-1.0); Blood Urea Nitrogen 3 MG/DL (7-18); Glucose 85 MG/DL (74-106); Osmolality,Calculated 281.8 MOS/KG (273-304); Potassium 4.5 MMOL/L (3.5-5.1); Sodium 144 MMOL/L (136-145)
[2016-04-19 07:29] VITALS: BP 157/90
[2016-04-19] MEDS: amLODIPine 5 MG TABLET PO SCH (08:00)
[2016-04-19] MEDS: BENAZEPRIL 10 MG TABLET PO SCH (08:00)
[2016-04-19] MEDS: PANTOPRAZOLE 40 MG TABLET PO SCH (08:01)
[2016-04-19] MEDS: traMADol 50 MG TABLET PO SCH (08:01)
[2016-04-19] MEDS: SERTRALINE 100 MG TABLET PO SCH (08:01)
[2016-04-19] MEDS: DOCUSATE SODIUM 100 MG CAPSULE PO SCH (08:01)
--- NOTE | 2016-04-19 08:09 | Discharge Summary ---
Hospital Course - Hospital Course Hospital Course: Mr. Clements is a 35 year old male Pt is a 35 y/o male ,with a hx of diverticulitis/GERD/Pancreatitis, who presents to the ED with a c/o abd pain, N/V with an onset yesterday at 2230. Patient has been having normal BM. He denies any ETOH use. Patient continued to note that ETOH use is the cause of his Pancreatitis. Pt has a PMHx of HTN, anxiety disorder, bipolar disorder, manic depression, obstructive sleep apnea and dyslipidemia. No other problems/complaints reported . Patient is known to me there is only seen hospital admitted for pancreatitis. His drug screen in the emergency room was positive for opioids and benzodiazepines and cannabinoids. Serum alcohol was negative. His amylase was 443 and lipase was 14,169. He is having significant pain on palpation of the epigastric region. In view of history we will admit further evaluation therapy Hospital course-patient admitted to hospital lab and x- ray studies obtained. Patient was initially treated with IV pain medication is placed n.p.o. seen in consultation by Dr. Cortez. Patient had a prolonged course of pain and nausea.. Attempted to advance diet on several occasions with poor response. His amylase and lipase slowly returned to normal range but he continued to have pain. He done this on her previous admission and took a significant amount of time for the pain to resolve. Abdominal CT actually reveals improved swelling and inflammatory changes about the pancreas. Patient was also seen in clinic by pain management who recommended that we send patient home with a small quantity of tramadol and lower order to allow him to recover from present episode of pain. patient much improved at time of discharge. Is tolerating diet still has pain but much improved. Will discharge to home care and arrange follow-up in the office in 10 days or sooner if needed. Call or come to the emergency room condition worsens or problems develop. Diagnosis - Discharge Diagnosis (1) Acute pancreatitis Status: Acute (2) Substance abuse Status: Chronic (3) Bipolar disorder Status: Chronic (4) Obstructive sleep apnea Status: Chronic (5) Hypertension Status: Chronic (6) Hyperlipidemia Status: Chronic Specialty Discharge - Follow Up or Referrals Discharge Plan - Discharge Data Disposition: Disch To Home/Self Care Condition at Discharge: Stable Discharge Diet: advance to your usual diet Activity: resume usual activities as tolerated Hygiene: no restrictions Weight Bearing at Discharge: full weight bearing Driving: no restrictions Contact your physician if you experience:: fever over 101, Nausea/Vomiting, pain uncontrolled by pain medications - Discharge Medications New amLODIPine [Norvasc] 10 mg PO DAILY #30 tablet traMADol TAB [Ultram] 50 mg PO QID #30 tablet Continue Lorazepam [Ativan] 2 mg PO TID Benazepril HCl 20 mg PO QAM Sertraline HCl 100 mg PO QAM Zolpidem [Ambien] 10 mg PO BEDTIME - Follow Up or Referral Follow Up: Ramsey Sauceda DO [Physician] - 04/29/16 - Forms/Instructions Instructions: Pancreatitis (ED) Exam - Constitutional Vitals: Period Temp Pulse Resp BP Sys/Velasquez Pulse Ox Last 24 Hr 97.7 F-98.4 F 69-100 18-20 127-157/70-90 94-99 General appearance: no acute distress - Head Head exam: Present: normal inspection - ENT ENT exam: Present: normal exam - Neck Neck exam: Present: normal inspection - Respiratory Respiratory exam: Present: clear to auscultation bilaterally - Cardiovascular Cardiovascular exam: Present: regular rate and rhythm - GI/Abdominal GI/Abdominal exam: Present: normal bowel sounds, tenderness, soft - Extremities Exam Extremities exam: Present: normal inspection - Back Exam Back exam: Present: normal inspection - Neurological Exam Neurological exam: Present: alert - Psychiatric Psychiatric exam: Present: normal affect - Skin Skin exam: Present: normal color Discharge Results Labs on day of discharge: Labs from last 24 hours 04/19/16 04/19/16 04/19/16 05:04 05:04 05:04 WBC 5.7 RBC 4.36 Hgb 14.6 Hct 42.9 MCV 98.4 MCH 34 MCHC 34.0 RDW 12.6 Plt Count 105 L MPV 12.9 H Neut % (Auto) 52.8 Lymph % (Auto) 32.9 [place] % (Auto) 10.5 Eos % (Auto) 2.6 Baso % (Auto) 0.7 Neut # (Auto) 3.0 Lymph # (Auto) 1.9 [place] # (Auto) 0.6 Eos # (Auto) 0.2 Baso # (Auto) 0.0 Immature Gran % 0.5 Nucleated RBC % 0.0 Immature Gran # 0.03 Nucleated RBCs # 0.00 Sodium 144 Potassium 4.5 Chloride 106 Carbon Dioxide 27 Anion Gap 15.5 H BUN 3 L Creatinine 0.70 GFR Calculation 156 BUN/Creatinine Ratio 4.00 L Glucose 85 Calculated Osmolality 281.8 Calcium 8.0 L Total Bilirubin < 0.39 AST 14 ALT 14 L Alkaline Phosphatase 71 Total Protein 6.0 L Albumin 2.7 L Globulin 3.3 Albumin/Globulin Ratio 0.8 L Lipase 172.0 04/18/16 04:23 WBC RBC Hgb Hct MCV MCH MCHC RDW Plt Count MPV Neut % (Auto) Lymph % (Auto) [place] % (Auto) Eos % (Auto) Baso % (Auto) Neut # (Auto) Lymph # (Auto) [place] # (Auto) Eos # (Auto) Baso # (Auto) Immature Gran % Nucleated RBC % Immature Gran # Nucleated RBCs # Sodium Potassium Chloride Carbon Dioxide Anion Gap BUN Creatinine GFR Calculation BUN/Creatinine Ratio Glucose Calculated Osmolality Calcium Total Bilirubin AST ALT Alkaline Phosphatase Total Protein Albumin Globulin Albumin/Globulin Ratio Lipase 184.0 DS: Provider Date of admission: 04/09/16 03:10 Primary care physician: . No PCP Attending physician on admission: Ramsey Sauceda DO Consults: 04/09/16 07:51 Consult to Physician [CONS] Routine Comment: Exacerbation pancreatitis Consulting Provider: Kingston Cortez Person Notified: REVONDA Date Notified: 04/09/16 Time Notified: 09:10 04/17/16 15:29 Consult to Physician [CONS] Routine Comment: Consulting Provider: Junaid Jenkins Consulting Provider Notified: Yes Person Notified: Dr. Jenkins Date Notified: 04/17/16 Time Notified: 15:37 Consult Notification Comment: Dr. Tobin spoke with Dr. Jenkins via telephone. Discharging clinician: Ramsey Sauceda DO
== END 2016-04-19 09:50 | disposition home or self-care (01) | DRG 439 ==
LOC: N.ED 01:52 → N.EDINP 03:10 → N.2E 03:33
PROVIDERS: ADMIT Family Medicine; ATTEND Family Medicine

== ENCOUNTER 2016-07-05 18:11 | Inpatient (IN) ==
[2016-07-05] MEDS ORDERED: PANTOPRAZOLE 40 MG VIAL IV STA (18:37)
[2016-07-05] MEDS ORDERED: LACTATED RINGERS 1,000 ML IV ONE (18:37)
[2016-07-05] MEDS ORDERED: HYDROmorphone 2 MG/1 ML VIAL IV STA ×2 (18:37→19:48)
[2016-07-05] MEDS ORDERED: ONDANSETRON 4 MG/2 ML VIAL IV STA (18:37)
[2016-07-05 18:45] LABS: Basophils # 0.1 10*3/uL (0.0-0.2); Basophils % 0.5 % (0.0-0.8); Eosinophils # 0.3 10*3/uL (0.0-0.87); Eosinophils % 2.2 % (0.00-10.9); Hematocrit 49.7 VOL% (42.0-52.0); Hemoglobin 17.6 GM/DL (14.0-18.0); Immature Granulocytes % 0.4 %; Immature Granulocytes Absolute 0.05 #; Lymphocytes # 2.5 10*3/uL (1.4-4.0); Lymphocytes % 22.4 % (21.2-54.2); Mean Corpuscular HGB Conc 35.4 GM/DL (32-36); Mean Corpuscular Hemoglobin 35 PG (27-34); Mean Corpuscular Volume 99.4 FL (87-102); Mean Platelet Volume 11.8 FL (9.6-12.0); Monocytes # 0.8 10*3/uL (0.11-0.8); Monocytes % 6.9 % (1.7-12.7); Neutrophils # 7.5 10*3/uL (1.4-7.4); Neutrophils % 67.6 % (38.7-73.9); Platelet Count 137 T/CUMM (130-400); Red Cell Distribution Width 13.2 % (9.3-17.3); White Blood Count 11.2 T/CUMM (4-12)
[2016-07-05] MEDS ORDERED: PANTOPRAZOLE 40 MG VIAL IV ONE (18:45)
[2016-07-05] MEDS ORDERED: HYDROmorphone 2 MG/1 ML VIAL ONE ×2 (18:46→19:49)
[2016-07-05] MEDS ORDERED: ONDANSETRON 4 MG/2 ML VIAL ONE (18:46)
--- NOTE | 2016-07-05 18:53 | XRay Report ---
Exam: XR abdomen 2V Date: 07/05/2016 6:36 PM Comparison: None Indication: Generalized abdominal pain Technique:[Supine and erect abdomen] Findings: Nonobstructed bowel gas pattern. Splenomegaly. No acute osseous findings. Impression: Nonobstructed bowel gas pattern. Minimal to moderate splenomegaly. PROCEDURE INTERPRETED AT [facility] DEPARTMENT OF RADIOLOGY Final Report Signed by: Dr. Carol Ann Allen
[2016-07-05 18:59] LABS: Albumin 3.8 G/DL (3.4-5.0); Bilirubin,Direct 0.2 MG/DL (0.0-0.20); Bilirubin,Total 0.5 MG/DL (0.2-1.0); Calcium 9.1 MG/DL (8.5-10.1); Osmolality,Calculated 270.8 MOS/KG (273-304); Potassium 4.1 MMOL/L (3.5-5.1); Total Protein 7.5 G/DL (6.4-8.3)
--- NOTE | 2016-07-05 19:39 | CT Report ---
Referring physician: Devaughn Bennett EXAM: CT abdomen and pelvis with contrast DATE: 07/05/2016 COMPARISON: 04/14/2016 REASON: Generalized abdominal pain TECHNIQUE: Axial images of the abdomen and pelvis were obtained after administration of 100 cc of Omnipaque 350 IV contrast. Coronal and sagittal reformatted images were also provided. Total DLP is 1825.70 mGy*cm. FINDINGS: Resolved left pleural effusion with chronic scarring/atelectasis at the lung bases and cardiac fat pads. Fatty infiltration on the liver with minimal elongation of the right lobe. No masses, dilated ducts, or calcified gallstones. The spleen remains minimally to moderately enlarged. The adrenal glands and kidneys are stable in appearance with 8 mm left upper pole renal cyst with no renal or ureteral calculi. The pancreas is smaller in size with reduced peripancreatic fluid and soft tissue stranding. Thickening of the wall of the adjacent duodenum with adjacent nodes which are borderline in size to minimally enlarged. Largest node measures 12 mm in short axis compared to 11 mm. Stable fat-containing left periumbilical hernia. No evidence of definite diverticulitis, appendicitis, free air, or free fluid. The prostate measures 40 mm in diameter with decompressed urinary bladder. No acute osseous findings are noted. IMPRESSION: Increased fat deposition including fatty infiltration of the liver. The spleen remains minimally to moderately enlarged. 8 mm left upper pole renal cyst. Improved but possible recurrent mild pancreatitis especially in the head of the pancreas. There is adjacent indeterminant thickening of the wall of the duodenum and adjacent lymphadenopathy. Minimal to moderate splenomegaly. Limited evaluation of bowel without oral contrast with fat containing left periumbilical hernia. Continued follow-up CT may be helpful for further evaluation. The CT exam was performed using one or more of the following dose reduction techniques: Automated exposure control and adjustment of the mA and/or kV according to patient size. PROCEDURE INTERPRETED AT [facility] DEPARTMENT OF RADIOLOGY Final Report Signed by: Dr. Carol Ann Allen
--- NOTE | 2016-07-05 19:57 | Emergency Department Note ---
Peña Anderson Brittany, am scribing for, and in the presence of, Devaughn Bennett MD 18 :43. Donald Anderson Hans, MD, personally performed the services described in this documentation, ascribed by Joana Pompa in my presence, and it is both accurate and complete [id number] . Arrival - Arrival Chief Complaint: Abdominal / Flank Pain Stated Complaint: PANCREATITIS ED Nursing Triage Note: Pt c/o left sided abd pain with nausea, vomiting, with dark and bright red blood in his stool Mode of Arrival: Ambulatory Limitations: No Limitations Source: Patient, RN Notes Reviewed Time Seen by Provider: 07/05/16 18:36 - History of Present Illness HPI Narrative: Mr. Clements is a 35 y/o white male presenting to the ED with c/o abdominal pain with an onset of this morning. He describes pain as severe and occurring in the mid-epigastric region that radiates into his back. He has had some associated nausea, vomiting, and hematochezia. Patient reports a history of Pancreatitis and Diverticulitis and notes that current symptoms are similar to past exacerbations of Pancreatitis. He notes that he has had two episodes of Pancreatitis in the past, the initial visit for diagnosis of Pancreatitis and his last visit was an exacerbation. Patient has also had three past visits for Diverticulitis. He reports that his Pancreatitis stems from years of excessive ETOH use, but he notes that he stopped use of ETOH about 6 months ago. He has not seen a [employer]. Patient does have a history of Umbilical Hernia. He is a patient of Dr. Ramsey Sauceda. Patient has no other complaint/pain. Onset (ago): hour(s) Consistency: constant Severity: severe Severity scale (1-10): 9 Quality: aching Allergies/Adverse Reactions: Allergies Allergy/AdvReac Type Severity Reaction Status Date / Time Cefaclor [From Ceclor] AdvReac HIVES Verified 10/21/15 10:07 Home Medications: Home Medications Medication Instructions Recorded Confirmed Type Benazepril HCl 20 mg PO QAM 10/21/15 07/05/16 History LORazepam [Ativan] 2 mg PO TID 10/21/15 07/05/16 History Sertraline HCl 100 mg PO BEDTIME 10/21/15 07/05/16 History Review of System - Review of System ROS unobtainable: due to dementia - Review of System Constitutional: Absent: chills, fever Eyes: Absent: vision change Head/Ears/Nose/Throat: Absent: nasal drainage, sore throat Respiratory: Absent: respiratory distress Cardiovascular: Absent: chest pain, palpitations Gastrointestinal: Present: as per HPI, abdominal pain, nausea, vomiting, hematochezia. Absent: diarrhea, constipation Genitourinary male: Absent: urgency, dysuria, frequency Musculoskeletal: Present: as per HPI, back pain. Absent: arm pain, leg pain Skin: Absent: rash Neurological: Absent: headache Psychiatric: Absent: anxiety, depression Hematological/Lymphatic: Absent: easy bleeding, easy bruising Medical,Surgical,& Family Hx - Medical History Cardio: History of: Hypertension Psychological: History of: Anxiety Disorders, Bipolar Disorder, Psychiatric Problems (MANIC DEPRESSION) HEENT: History of: Eye Problem (wears glasses), HEENT Problems (RINGING IN EARS WHEN HAS SINUS PROBLEMS) Endocrine: History of: Dyslipidemia Rheumatology: History of;: Gout (FEET), Psoriasis Respiratory: History of: Obstructive Sleep Apnea (CPAP AT NIGHT) Gastrointestinal: History of: Diverticulitis/ Diverticulosis, GERD, Pancreatitis , GI Problems (abd hernia at [employer]) Hematology: History of: Anemia - Surgical History Thoracic Surgeries: Patient denies;: Organ Transplant HEENT Surgeries: Surgical HX of: Tonsilectomy & Adenoidectomy (adenoidectomy) Patient denies: Eye Surgery Abdominal Surgeries: Patient denies: Abdominal Surgery, Appendectomy, Cholecystectomy, Colonoscopy , Gastric Bypass Surgery, EGD, Hernia Repair - Family History Family History: Reports;: Family Heart Disease (GRANDPARENTS (PAT AND MAT)), Family Hypertension Denies;: Family Anesthesia Reaction, Family Cancer, Family Diabetes, Family Psychiatric Problems, Family Stroke - Social History Smoking Status: Never smoker Exam Vital Signs: Vital Signs Temperature 97.3 F L 07/05/16 18:15 Pulse Rate 91 H 07/05/16 18:52 Respiratory Rate 20 07/05/16 18:52 Blood Pressure 121/78 07/05/16 18:52 O2 Sat by Pulse Oximetry 97 07/05/16 18:52 - General General appearance: alert, in distress (appears uncomfortable secondary to pain) - Head Head exam: Present: atraumatic, normocephalic, normal inspection - Eye Eye exam: Present: normal appearance, PERRL, EOMI - ENT ENT exam: Present: normal exam, normal oropharynx - Neck Neck exam: Present: normal inspection, full ROM, trachea midline - Chest Chest inspection: Present: normal inspection, symmetric chest wall rise - Respiratory Respiratory exam: Present: normal lung sounds bilaterally - Cardiovascular Cardiovascular exam: Present: regular rate, normal rhythm, normal heart sounds - Abdominal Exam Abdominal exam: Present: soft, tenderness (mid-epigastric tenderness to palpation), normal bowel sounds, hernia (small umbilical hernia that is chronically incarcerated with no surrounding skin changes). Absent: distention - Rectal Exam Rectal exam: Present: normal inspection, normal rectal tone, heme (-) stool - Extremities Exam Extremities exam: Present: normal inspection - Back Exam Back exam: Present: normal inspection - Neurological Exam Neurological exam: Present: alert, oriented X3, CN II-XII intact. Absent: motor sensory deficit - Psychiatric Psychiatric exam: Present: normal affect - Skin Skin exam: Present: warm, dry Course Course Narrative: This patient was evaluated in the ER with lab work in the abdominal x-ray as well as CT scan. His lipase was only [address] scan showed some inflammatory changes around the head of the pancreas and the duodenum as well as some lymphadenopathy there. This seems most consistent with early pancreatitis or seronegative pancreatitis but the possibility of duodenitis was also entertained. I discussed his presentation with Dr. Lopez is covering for Dr. Sauceda and he agreed to admit him for IV fluids and pain medication and we will also place him on a twice daily proton pump inhibitor until the issue of his duodenitis is sorted out. Is certainly possible this is reactive to his pancreatitis as well but the patient does say that he quit drinking 6 months ago. He is stable and can be admitted to a floor bed un-monitored and his orders will be put in. Results - Labs CBC & BMP: 07/05/16 18:26 07/05/16 18:26 Lab Results: I have reviewed the patients labs Labs: Laboratory Tests 07/05/16 07/05/16 18:26 18:26 WBC 11.2 RBC 5.00 Hgb 17.6 Hct 49.7 MCV 99.4 MCH 35 H MCHC 35.4 RDW 13.2 Plt Count 137 MPV 11.8 Neut % (Auto) 67.6 Lymph % (Auto) 22.4 [place] % (Auto) 6.9 Eos % (Auto) 2.2 Baso % (Auto) 0.5 Neut # (Auto) 7.5 H Lymph # (Auto) 2.5 [place] # (Auto) 0.8 Eos # (Auto) 0.3 Baso # (Auto) 0.1 Immature Gran % 0.4 Nucleated RBC % 0.0 Immature Gran # 0.05 Nucleated RBCs # 0.00 Sodium 137 Potassium 4.1 Chloride 104 Carbon Dioxide 23 Anion Gap 14.1 BUN 7 Creatinine 0.80 GFR Calculation 144 BUN/Creatinine Ratio 8.00 Glucose 101 Calculated Osmolality 270.8 L Calcium 9.1 Total Bilirubin 0.50 Direct Bilirubin 0.20 AST 49 H ALT 49 Alkaline Phosphatase 93 Total Protein 7.5 Albumin 3.8 Globulin 3.7 H Albumin/Globulin Ratio 1.0 L Lipase 462.0 H - Diagnostic Findings Procedure: Abdominal x-ray: report reviewed by me ( Nonobstructed bowel gas pattern. Minimal to moderate splenomegaly.), CT Abdomen and Pelvis: report reviewed by me (Increased fat deposition including fatty infiltration of the liver. The spleen remains minimally to moderately enlarged. 8 mm left upper pole renal cyst. Improved but possible recurrent mild pancreatitis especially in the head of the pancreas. There is adjacent indeterminant thickening of the wall of the duodenum and adjacent lypmhadenopathy. Minimal to moderate splenomegaly. Limited evaluation of bowel without oral contrast with fat containing left periumbilical hernia. ) Disposition Clinical Impression: Pancreatitis Case discussed with: patient Condition: Stable Instructions: Pancreatitis (ED) Time of Disposition: 19:56
[2016-07-05] MEDS ORDERED: PROMETHAZINE 25 MG TABLET PO PRN (20:25)
[2016-07-05] MEDS: SODIUM CHLORIDE 0.9% 1,000 ML IV SCH (21:52)
[2016-07-05] MEDS: HYDROmorphone 2 MG/1 ML VIAL IV PRN (21:53)
[2016-07-05] MEDS: PANTOPRAZOLE 40 MG VIAL IV SCH (21:54)
[2016-07-06] MEDS: ONDANSETRON 4 MG/2 ML VIAL IV PRN ×3 (01:09→20:53)
[2016-07-06] MEDS: HYDROmorphone 2 MG/1 ML VIAL IV PRN ×9 (01:10→23:28)
[2016-07-06] MEDS: SODIUM CHLORIDE 0.9% 1,000 ML IV SCH ×3 (06:02→22:04)
[2016-07-06 06:15] LABS: Basophils # 0.1 10*3/uL (0.0-0.2); Basophils % 0.6 % (0.0-0.8); Eosinophils # 0.3 10*3/uL (0.0-0.87); Eosinophils % 3.4 % (0.00-10.9); Hematocrit 47.7 VOL% (42.0-52.0); Hemoglobin 16.2 GM/DL (14.0-18.0); Immature Granulocytes % 0.5 %; Immature Granulocytes Absolute 0.04 #; Lymphocytes % 34.9 % (21.2-54.2); Mean Corpuscular Hemoglobin 34 PG (27-34); Mean Corpuscular Volume 101.1 FL (87-102); Mean Platelet Volume 12.5 FL (9.6-12.0); Monocytes # 0.6 10*3/uL (0.11-0.8); Monocytes % 6.7 % (1.7-12.7); Neutrophils # 4.6 10*3/uL (1.4-7.4); Neutrophils % 53.9 % (38.7-73.9); Platelet Count 117 T/CUMM (130-400); Red Blood Count 4.72 MC/CUMM (3.8-5.5); Red Cell Distribution Width 13.2 % (9.3-17.3); White Blood Count 8.5 T/CUMM (4-12)
[2016-07-06 07:00] LABS: Albumin 3.3 G/DL (3.4-5.0); Bilirubin,Total 1.1 MG/DL (0.2-1.0); Calcium 8.5 MG/DL (8.5-10.1); Osmolality,Calculated 277.3 MOS/KG (273-304); Total Protein 6.8 G/DL (6.4-8.3)
[2016-07-06] MEDS ORDERED: ACETAMINOPHEN 325 MG TABLET PO PRN (07:42)
--- NOTE | 2016-07-06 07:50 | Family Practice History&Phys ---
Assessment and Plan (1) Pancreatitis Status: Acute Assessment and plan: Patient has had multiple similar admissions for pancreatitis. Will keep on clear liquids and monitor closely. Hopefully this will be a shortly after admission Current Visit: Yes (2) Bipolar disorder Status: Chronic Assessment and plan: We will resume home medications and monitor Current Visit: No (3) Hyperlipidemia Status: Chronic Assessment and plan: We will resume home medications and Current Visit: No (4) Hypertension Status: Chronic Assessment and plan: We will resume home medication Current Visit: No (5) Obstructive sleep apnea Status: Chronic Assessment and plan: We will resume CPAP Current Visit: No History of Present Illness Chief complaint: Abdominal pain with pancreatitis History of present illness: Mr. Clements is a 35 year old male Mr. Clements is a 35 y/o white male presenting to the ED with c/o abdominal pain with an onset of this morning. He describes pain as severe and occurring in the mid-epigastric region that radiates into his back. He has had some associated nausea, vomiting, and hematochezia. Patient reports a history of Pancreatitis and Diverticulitis and notes that current symptoms are similar to past exacerbations of Pancreatitis. He notes that he has had two episodes of Pancreatitis in the past, the initial visit for diagnosis of Pancreatitis and his last visit was an exacerbation. Patient has also had three past visits for Diverticulitis. He reports that his Pancreatitis stems from years of excessive ETOH use, but he notes that he stopped use of ETOH about 6 months ago. He has not seen a Manager Clinic. Patient does have a history of Umbilical Hernia. He is a patient of Dr. Ramsey Sauceda. Patient has no other complaint/pain. Home Medications Medication Instructions Recorded Confirmed Type Benazepril HCl 20 mg PO QAM 10/21/15 07/05/16 History LORazepam [Ativan] 2 mg PO TID 10/21/15 07/05/16 History Sertraline HCl 100 mg PO BEDTIME 10/21/15 07/05/16 History Allergies Allergy/AdvReac Type Severity Reaction Status Date / Time Cefaclor [From Ceclor] AdvReac HIVES Verified 10/21/15 10:07 Medical,Surgical,& Family Hx - Medical History Cardio: History of: Hypertension No history of: Aneurysm, Cardiac Dysrhythmia, Cerebrovascular Disease, Congenital Heart Disease, CHF, CAD, [place], Pacemaker, PVD, Valvular Heart Disease, Cardiovascular Problems Psychological: History of: Anxiety Disorders, Bipolar Disorder, Psychiatric Problems (MANIC DEPRESSION) No history of: ADHD, Behavior Problems, Depression, Previous Suicide Attempt , Psychiatric/Substance Abuse Tx, Schizophrenia, Violent Behavior Neurology: History of: Seizures No history of: Brain Aneurysm, Cerebral Hemorrhage, Cerebrovascular Accident , Cerebral Palsy, Dementia, Migraine, Multiple Sclerosis, Parkinson's Disease, Peripheral Neuropathy, TIA, Vertigo, Neurologocal Cancer HEENT: History of: Eye Problem (wears glasses), HEENT Problems (RINGING IN EARS WHEN HAS SINUS PROBLEMS) No history of: Ear Problem, Dental Problems, Glaucoma, Oral Cancer Endocrine: History of: Dyslipidemia Rheumatology: History of;: Gout (FEET), Psoriasis No history of;: Fibromyalgia, Myasthenia Gravis, Rheumatoid Arthritis, Sjogrens, Systemic Lupus Erythematosus, Rheumatological Problems Respiratory: History of: Obstructive Sleep Apnea (CPAP AT NIGHT) No history of: Asthma, Bronchitis, COPD, Intubation, Pulmonary Embolism, Pulmonary Hypertension, Pneumonia, Lung Cancer, Respiratory Problems Renal: No history of: Renal (Kidney) Cancer, Dialysis, Renal Failure, Renal Problems Genitourinary: No history of: Bladder Problem, Kidney Stones, Prostate Problems, Recurring Urinary Tract Infections, Genitourinary Cancer, Problems Gastrointestinal: History of: Diverticulitis/ Diverticulosis, GERD, Pancreatitis , GI Problems (abd hernia at [employer]) No history of: Bowel Obstruction, Clostridium Difficile, Crohn's Disease, Esophageal Varices, Gastrointestinal Bleed, Hemorrhoids, Hematochezia, Hepatitis , Liver Problems, Polyps, Ulcerative Colitis, Gastrointestinal Cancer Musculoskeletal: No history of: Amputation, Back/Neck Problems, Degenerative Disk Disease, Herniated Disk, Osteoporosis, Musculoskeletal Cancer, Musculoskeletal Problems Hematology: History of: Anemia No history of: Blood Transfusion Reaction, Bleeding Problems, Clotting Problems, Sickle Cell Disease, Hematologic Cancer, Blood Disorders Other: No history of: Cancer, Eczema, HIV, Malignant Hyperthermia, MRSA, Vancomycin- Resistant Enterococci, Skin Problems, Miscellaneous Medical Problems - Surgical History Cardiac Surgeries: Patient Denies: Femoral-Popliteal Bypass Graft, Cardiac Catheterization, Cardiac Surgery, Carotid Endarterectomy, Internal Defibrillator, Vascular Access Devices Thoracic Surgeries: Patient denies;: Kidney (Renal Surgery), Lithotripsy, Nephrectomy, Organ Transplant, Lobectomy Neurologic Surgeries: Patient denies: Brain Aneurysm, Cerebral Hemorrhage, Neurologic Surgery HEENT Surgeries: Surgical HX of: Tonsilectomy & Adenoidectomy (adenoidectomy) Patient denies: Carotid Endarterectomy, Eye Surgery Abdominal Surgeries: Patient denies: Abdominal Surgery, Appendectomy, Cholecystectomy, Colonoscopy , Gastric Bypass Surgery, EGD, Hernia Repair, Splenectomy Reproductive Surgeries: Patient denies;: Cystoscopy, Genitourinary Surgery, Prostate Surgery Orthopedic Surgeries: Patient denies;: Implanted Devices, Orthopedic Surgery, Spinal Surgery, Total Hip Replacement, Total Knee Replacement - Family History Family History: Reports;: Family Heart Disease (GRANDPARENTS (PAT AND MAT)), Family Hypertension Denies;: Family Anesthesia Reaction, Family Cancer, Family Diabetes, Family Hematology, Family Psychiatric Problems, Family Stroke, Additional Family History - Social History Smoking Status: Never smoker Frequency of Alcohol Use: None Type of Drug Use: None Marital Status: Single Lives With:: Alone Functional capacity: independent ambulation Exam - Constitutional Vitals: Period Temp Pulse Resp BP Sys/Velasquez Pulse Ox Last 24 Hr 97.3 F-97.5 F 72-93 18-20 121-166/69-111 96-98 General appearance: mild distress - Head Head exam: Present: normal inspection - Eye Pupils: Present: BHUMIKA - ENT ENT exam: Present: normal exam - Neck Neck exam: Present: normal inspection - Respiratory Respiratory exam: Present: clear to auscultation bilaterally - Cardiovascular Cardiovascular exam: Present: regular rate and rhythm - GI/Abdominal GI/Abdominal exam: Present: normal bowel sounds, soft - Extremities Exam Extremities exam: Present: normal inspection - Back Exam Back exam: Present: normal inspection - Neurological Exam Neurological exam: Present: alert - Psychiatric Psychiatric exam: Present: normal affect - Skin Skin exam: Present: normal color Results - Labs CBC & BMP: 07/06/16 05:04 07/06/16 05:04
[2016-07-06] MEDS: PANTOPRAZOLE 40 MG VIAL IV SCH ×2 (09:53→20:52)
[2016-07-06] MEDS: LORazepam 1 MG TABLET PO SCH ×3 (09:53→20:53)
[2016-07-06] MEDS: BENAZEPRIL 10 MG TABLET PO SCH (09:53)
[2016-07-06] MEDS: SERTRALINE 100 MG TABLET PO SCH (20:54)
[2016-07-07] MEDS: HYDROmorphone 2 MG/1 ML VIAL IV PRN ×6 (02:53→20:53)
[2016-07-07 04:25] LABS: Basophils % 0.5 % (0.0-0.8); Eosinophils # 0.3 10*3/uL (0.0-0.87); Hematocrit 45.8 VOL% (42.0-52.0); Hemoglobin 15.3 GM/DL (14.0-18.0); Immature Granulocytes % 0.5 %; Immature Granulocytes Absolute 0.03 #; Lymphocytes # 1.9 10*3/uL (1.4-4.0); Mean Corpuscular HGB Conc 33.4 GM/DL (32-36); Mean Corpuscular Hemoglobin 35 PG (27-34); Mean Corpuscular Volume 105.8 FL (87-102); Mean Platelet Volume 12.1 FL (9.6-12.0); Monocytes # 0.4 10*3/uL (0.11-0.8); Monocytes % 6.4 % (1.7-12.7); Neutrophils # 3.2 10*3/uL (1.4-7.4); Neutrophils % 54.6 % (38.7-73.9); Platelet Count 82 T/CUMM (130-400); Red Blood Count 4.33 MC/CUMM (3.8-5.5); White Blood Count 5.8 T/CUMM (4-12)
[2016-07-07 05:03] LABS: Hypochromasia 1+; Platelet Estimate Decreased
[2016-07-07 05:08] LABS: Albumin 3.1 G/DL (3.4-5.0); Bilirubin,Total 0.6 MG/DL (0.2-1.0); Calcium 8.4 MG/DL (8.5-10.1); Osmolality,Calculated 275.3 MOS/KG (273-304); Potassium 4.1 MMOL/L (3.5-5.1); Total Protein 6.1 G/DL (6.4-8.3)
[2016-07-07] MEDS: SODIUM CHLORIDE 0.9% 1,000 ML IV SCH ×2 (06:10→15:49)
[2016-07-07] MEDS: BENAZEPRIL 10 MG TABLET PO SCH (08:24)
[2016-07-07] MEDS: LORazepam 1 MG TABLET PO SCH ×3 (08:24→20:15)
[2016-07-07] MEDS: PANTOPRAZOLE 40 MG VIAL IV SCH ×2 (08:25→20:15)
[2016-07-07 11:06] LABS: Apearance,Urine CLEAR (Clear); Bilirubin,Urine Negative (Negative); Blood, Urine Negative (Negative); Glucose,Urine (UA) Negative (Negative); Ketones,Urine Negative (Negative); Nitrite,Urine Negative (Negative); Protein,Urine Negative; RBC,Urine <1 /HPF (0-4); Sperm,Urine Occasional /HPF (Negative); Urine Color Yellow (Yellow); Urine Specific Gravity 1.009 (1.001-1.035); Urine Urobilinogen < 2.0 EU/DL (0.2-1.0); WBC,Urine <1 /HPF (0-6)
--- NOTE | 2016-07-07 13:42 | Family Practice Progress Note ---
Family Practice - PN: Subj Interval history: Patient seen this afternoon. Only walking in the room he was asleep but aroused easily. He has been getting Dilaudid fairly frequently every 2-3 hours for supposed pain in his abdomen. This is very difficult to evaluate at this time his pancreatic enzymes are basically in the high normal range. His complaint of pain is the midepigastric area but on exam and palpation he grimaces to pain wherever you push on them. Does have positive but hypoactive bowel sounds. Admits he has not had a bowel movement since admission. He is on clear liquids still. CT scan reveals mild inflammation with only possible mild pancreatitis at the head which based on enzymes this is resolving. I am going to decrease his Dilaudid and go and get a GI consult for clarity. Will hopefully be able to discharge tomorrow. Patient does seem very depressed he admits that he is trying to get on disability, "because of all of my problems"; ("depression, stomach problems, alcohol use in the past ", among other things that he mentioned). Exam (Progress Note) - Constitutional Vitals: Period Temp Pulse Resp BP Sys/Velasquez Pulse Ox Last 24 Hr 97.3 F-97.7 F 63-82 16-20 113-135/64-85 97-100 Exam: Generally very depressed, sad patient. He does live with his parents, does not work HEENT pupils equal reactive light neck supple trachea midline Cardia vascular rate is regular no gallop or rub Lungs are clear he denies any shortness of breath Abdomen mild diffuse tenderness no peritoneal signs no distention of abdomen. Hypoactive bowel sounds. Extremities no clubbing cyanosis or edema Neurologically fully intact Results - Labs CBC & BMP: 07/07/16 03:21 07/07/16 03:21 Assessment and Plan (1) Pancreatitis Status: Acute Assessment and plan: 07/07/2016: Resolved by enzymes. Will going get GI to see him with his history of recurrent abdominal discomfort/pancreatic history. This is for clarity. He is also seen pain management in the past and it was recommended that he not go on home on long-term/chronic pain medications. Was last discharged home short course of Ultram Current Visit: Yes Specialty Discharge - Follow Up or Referrals
--- NOTE | 2016-07-07 14:26 | Gastrointestinal Consult Note ---
Assessment and Plan (1) Abdominal pain Status: Acute Assessment and plan: 07/07-sudden onset of left upper quadrant abdominal pain radiating to back with associated nausea and vomiting. History of recurring pancreatitis with last episode April of this year. This being the third episode. History of EtOH use with last reported usage 6 months ago. Occasional THC use. Findings of mildly elevated lipase of 462 on admission now down at 295. CT of abdomen pelvis noted with increased fatty infiltration of liver, mild to moderately enlarged spleen, recurrent mild pancreatitis findings in head of pancreas, thickening of duodenal wall with adjacent lymphadenopathy. Continue with IV fluids, clear liquid diet and analgesic as needed. Plan an addendum to followed by Dr. Cortez. Current Visit: Yes History of Present Illness Chief complaint: Abdominal pain History of present illness: Mr. Clements is a 35 year old male who was admitted to the hospital with onset of severe abdominal pain. Patient states that he woke up 2 days ago with severe onset of left upper quadrant pain radiating through to his back. He states that the pain came on suddenly and was associated with nausea and vomiting. He also reports a subjective fever and chills. Patient presented to the emergency room for further follow-up. On admission he was found to have mildly elevated lipase level at 462. No findings of fever or leukocytosis at that time. He also had CT of abdomen with some mild inflammation noted in the head of the pancreas. He was admitted for further workup. Patient has a prior history of pancreatitis with his initial episode in December of last year. He was then hospitalized in April of this year as well. He states he has had no further symptoms since discharge in April. He has a history of heavy alcohol use in the past but states he has been abstinent for 6 months. He does admit to using THC once to twice a month. Denies any other illicit drug use are tobacco use. Denies any weight loss. Denies any recent changes in his medications. LFTs are unremarkable. CRP is elevated at 1.78. Home Medications Medication Instructions Recorded Confirmed Type Benazepril HCl 20 mg PO QAM 10/21/15 07/05/16 History LORazepam [Ativan] 2 mg PO TID 10/21/15 07/05/16 History Sertraline HCl 100 mg PO BEDTIME 10/21/15 07/05/16 History Allergies Allergy/AdvReac Type Severity Reaction Status Date / Time Cefaclor [From Ceclor] Matilda BOYD Verified 10/21/15 10:07 Medical,Surgical,& Family Hx - Medical History Cardio: History of: Hypertension No history of: Aneurysm, Cardiac Dysrhythmia, Cerebrovascular Disease, Congenital Heart Disease, CHF, CAD, [place], Pacemaker, PVD, Valvular Heart Disease, Cardiovascular Problems Psychological: History of: Anxiety Disorders, Bipolar Disorder, Psychiatric Problems (MANIC DEPRESSION) No history of: ADHD, Behavior Problems, Depression, Previous Suicide Attempt , Psychiatric/Substance Abuse Tx, Schizophrenia, Violent Behavior Neurology: History of: Seizures No history of: Brain Aneurysm, Cerebral Hemorrhage, Cerebrovascular Accident , Cerebral Palsy, Dementia, Migraine, Multiple Sclerosis, Parkinson's Disease, Peripheral Neuropathy, TIA, Vertigo, Neurologocal Cancer HEENT: History of: Eye Problem (wears glasses), HEENT Problems (RINGING IN EARS WHEN HAS SINUS PROBLEMS) No history of: Ear Problem, Dental Problems, Glaucoma, Oral Cancer Endocrine: History of: Dyslipidemia Rheumatology: History of;: Gout (FEET), Psoriasis No history of;: Fibromyalgia, Myasthenia Gravis, Rheumatoid Arthritis, Sjogrens, Systemic Lupus Erythematosus, Rheumatological Problems Respiratory: History of: Obstructive Sleep Apnea (CPAP AT NIGHT) No history of: Asthma, Bronchitis, COPD, Intubation, Pulmonary Embolism, Pulmonary Hypertension, Pneumonia, Lung Cancer, Respiratory Problems Renal: No history of: Renal (Kidney) Cancer, Dialysis, Renal Failure, Renal Problems Genitourinary: No history of: Bladder Problem, Kidney Stones, Prostate Problems, Recurring Urinary Tract Infections, Genitourinary Cancer, Problems Gastrointestinal: History of: Diverticulitis/ Diverticulosis, GERD, Pancreatitis , GI Problems (abd hernia at naval) No history of: Bowel Obstruction, Clostridium Difficile, Crohn's Disease, Esophageal Varices, Gastrointestinal Bleed, Hemorrhoids, Hematochezia, Hepatitis , Liver Problems, Polyps, Ulcerative Colitis, Gastrointestinal Cancer Musculoskeletal: No history of: Amputation, Back/Neck Problems, Degenerative Disk Disease, Herniated Disk, Osteoporosis, Musculoskeletal Cancer, Musculoskeletal Problems Hematology: History of: Anemia No history of: Blood Transfusion Reaction, Bleeding Problems, Clotting Problems, Sickle Cell Disease, Hematologic Cancer, Blood Disorders Other: No history of: Cancer, Eczema, HIV, Malignant Hyperthermia, MRSA, Vancomycin- Resistant Enterococci, Skin Problems, Miscellaneous Medical Problems - Surgical History Cardiac Surgeries: Patient Denies: Femoral-Popliteal Bypass Graft, Cardiac Catheterization, Cardiac Surgery, Carotid Endarterectomy, Internal Defibrillator, Vascular Access Devices Thoracic Surgeries: Patient denies;: Kidney (Renal Surgery), Lithotripsy, Nephrectomy, Organ Transplant, Lobectomy Neurologic Surgeries: Patient denies: Brain Aneurysm, Cerebral Hemorrhage, Neurologic Surgery HEENT Surgeries: Surgical HX of: Tonsilectomy & Adenoidectomy (adenoidectomy) Patient denies: Carotid Endarterectomy, Eye Surgery Abdominal Surgeries: Patient denies: Abdominal Surgery, Appendectomy, Cholecystectomy, Colonoscopy , Gastric Bypass Surgery, EGD, Hernia Repair, Splenectomy Reproductive Surgeries: Patient denies;: Cystoscopy, Genitourinary Surgery, Prostate Surgery Orthopedic Surgeries: Patient denies;: Implanted Devices, Orthopedic Surgery, Spinal Surgery, Total Hip Replacement, Total Knee Replacement - Family History Family History: Reports;: Family Heart Disease (GRANDPARENTS (PAT AND MAT)), Family Hypertension Denies;: Family Anesthesia Reaction, Family Cancer, Family Diabetes, Family Hematology, Family Psychiatric Problems, Family Stroke, Additional Family History - Social History Smoking Status: Never smoker Frequency of Alcohol Use: None Type of Drug Use: None 12 point system: reviewed and no additional remarkable complaints except as stated - Constitutional Constitutional: Present: as per HPI - EENT Eyes: Present: as per HPI Ears: Present: as per HPI Nose, mouth and throat: Present: as per HPI - Cardiovascular Cardiovascular: Present: as per HPI - Respiratory Respiratory: Present: as per HPI - Gastrointestinal Gastrointestinal: Present: as per HPI, abdominal pain, nausea, vomiting - Genitourinary Genitourinary: Present: as per HPI - Musculoskeletal Musculoskeletal: Present: as per HPI - Neurological Neurological: Present: as per HPI - Psychiatric Psychiatric: Present: as per HPI - Endocrine Endocrine: Present: as per HPI - Hematologic/Lymphatic Hematologic/Lymphatic: Present: as per HPI Exam - Constitutional Vitals: Period Temp Pulse Resp BP Sys/Velasquez Pulse Ox Last 24 Hr 97.3 F-97.7 F 63-82 16-20 113-135/64-85 97-100 General appearance: normal weight, no acute distress - Head Head exam: Present: normal inspection, normocephalic - Eye Eye exam: Present: other (Lids and conjunctivae unremarkable). Absent: scleral icterus - ENT ENT exam: Present: normal exam, normal oropharynx - Neck Neck exam: Present: normal inspection - Respiratory Respiratory exam: Present: clear to auscultation bilaterally. Absent: rales, rhonchi, wheezes - Cardiovascular Cardiovascular exam: Present: regular rate and rhythm. Absent: diastolic murmur , JVD, systolic murmur - GI/Abdominal GI/Abdominal exam: Present: normal bowel sounds, tenderness, soft. Absent: ascites, distended, mass, organomegaly - Extremities Exam Extremities exam: Present: normal inspection, full ROM - Back Exam Back exam: Present: normal inspection - Neurological Exam Neurological exam: Present: alert, oriented X3 - Psychiatric Psychiatric exam: Present: normal affect, normal mood - Skin Skin exam: Present: normal color, warm, dry Results - Labs CBC & BMP: 07/07/16 03:21 07/07/16 03:21 Lab Results: I have reviewed the past 24 hour labs - Diagnostic Findings Procedure: CT Abdomen and Pelvis: image reviewed by me Specialty Discharge - Follow Up or Referrals
[2016-07-07] MEDS: SERTRALINE 100 MG TABLET PO SCH (20:15)
[2016-07-08] MEDS: SODIUM CHLORIDE 0.9% 1,000 ML IV SCH (00:51)
[2016-07-08] MEDS: HYDROmorphone 2 MG/1 ML VIAL IV PRN ×4 (00:52→13:39)
[2016-07-08] MEDS: ONDANSETRON 4 MG/2 ML VIAL IV PRN ×2 (00:57→05:06)
[2016-07-08] MEDS: PANTOPRAZOLE 40 MG VIAL IV SCH (08:18)
[2016-07-08] MEDS: LORazepam 1 MG TABLET PO SCH (08:19)
[2016-07-08] MEDS: BENAZEPRIL 10 MG TABLET PO SCH (08:19)
--- NOTE | 2016-07-08 10:02 | Gastrointestinal Progress Note ---
Assessment and Plan (1) Abdominal pain Status: Acute Assessment and plan: 07/08-Abd pain improved, mild in nature. Afebrile. No nausea or vomiting. Lipase 123. Will advance to full liquid diet today. Plan and addendum to follow by Dr Cortez. 07/07-sudden onset of left upper quadrant abdominal pain radiating to back with associated nausea and vomiting. History of recurring pancreatitis with last episode April of this year. This being the third episode. History of EtOH use with last reported usage 6 months ago. Occasional THC use. Findings of mildly elevated lipase of 462 on admission now down at 295. CT of abdomen pelvis noted with increased fatty infiltration of liver, mild to moderately enlarged spleen, recurrent mild pancreatitis findings in head of pancreas, thickening of duodenal wall with adjacent lymphadenopathy. Continue with IV fluids, clear liquid diet and analgesic as needed. Plan an addendum to followed by Dr. Cortez. Current Visit: Yes Gastroenterology - PN: Subj Interval history: CC: Abd pain Pt is seen awake and alert, sitting up in bed. States he had some mild discomfort overnight but denies any severe pain. Denies any nausea or vomiting. Abdomen is soft, mild upper abd tenderness. His lipase levels are down at 123. Afebrile. States that he is tolerating his clear liquid well at this time. He wishes to try advancing this at present time. ROS: Denies SOB or chest pain Exam (Progress Note) - Constitutional Vitals: Period Temp Pulse Resp BP Sys/Velasquez Pulse Ox Last 24 Hr 97.2 F-98.4 F 63-78 18-20 122-153/84-110 93-100 General appearance: normal weight, no acute distress - Head Head exam: Present: normal inspection, normocephalic - Eye Eye exam: Present: other (lids and conjunctiva unremarkable). Absent: scleral icterus - ENT ENT exam: Present: normal exam, normal oropharynx - Neck Neck exam: Present: normal inspection - Respiratory Respiratory exam: Present: clear to auscultation bilaterally. Absent: rales, rhonchi, wheezes - Cardiovascular Cardiovascular exam: Present: regular rate and rhythm. Absent: diastolic murmur , JVD, systolic murmur - GI/Abdominal GI/Abdominal exam: Present: normal bowel sounds, soft. Absent: ascites, distended, mass, organomegaly, tenderness - Extremities Exam Extremities exam: Present: normal inspection, full ROM - Back Exam Back exam: Present: normal inspection - Neurological Exam Neurological exam: Present: alert, oriented X3 - Psychiatric Psychiatric exam: Present: normal affect, normal mood - Skin Skin exam: Present: normal color, warm, dry Results - Labs CBC & BMP: 07/07/16 03:21 07/07/16 03:21 Lab Results: I have reviewed the past 24 hour labs Specialty Discharge - Follow Up or Referrals
[2016-07-08 11:54] VITALS: BP 150/103
--- NOTE | 2016-07-08 13:03 | Discharge Summary ---
Hospital Course - Hospital Course Hospital Course: Patient came to the hospital with mild diffuse abdominal pain but slightly worse in the epigastric area. He did have very mild pancreatitis. Has had 3 or 4 episodes in the last 6 months or so. Has responded well to n.p.o. and did require however some pain medications. The patient does seem to appreciate the pain medications more than should be necessary. He got him very much on a regular basis. He asked also that we give him some "strong narcotics" to go home with. Historically has been given Ultram/Ultracet and I will give him this only and only for short period of time. He also uses medication for anxiety and has a strong history of alcohol abuse although he admits that he is not been doing this for the past 5-6 months. We will have him follow-up with primary doctor Sohail in 2 weeks. He is ambulating now and states that he feels "much better" Diagnosis - Discharge Diagnosis (1) Pancreatitis Status: Acute Specialty Discharge - Follow Up or Referrals Discharge Plan - Discharge Data Disposition: Disch To Home/Self Care Condition at Discharge: Stable Discharge Diet: low fat, low cholesterol Activity: increase activity as tolerated Hygiene: no restrictions Weight Bearing at Discharge: weight bear as tolerated Driving: no restrictions Contact your physician if you experience:: fever over 101, Shortness of breath, pain uncontrolled by pain medications - Discharge Medications New Tramadol HCl/Acetaminophen [Ultracet Tablet] 1 each PO TID PRN #30 tablet PRN Reason: Abdominal Pain Continue LORazepam [Ativan] 2 mg PO TID Benazepril HCl 20 mg PO QAM Sertraline HCl 100 mg PO BEDTIME - Follow Up or Referral - Forms/Instructions Instructions: Pancreatitis (ED) Exam - Constitutional Vitals: Period Temp Pulse Resp BP Sys/Velasquez Pulse Ox Last 24 Hr 97.2 F-98.4 F 63-78 18-20 134-153/84-110 93-100 Discharge Results Procedures and tests throughout hospitalization: Pending Orders 07/06/16 08:20 Blood Culture Routine Labs on day of discharge: Labs from last 24 hours 07/08/16 04:44 Amylase 21 L Lipase 123.0 D Preliminary micro results at discharge 07/06/16 08:20 Blood Culture - Preliminary Blood No growth at 1 day 07/06/16 08:20 Blood Culture - Preliminary Blood No growth at 1 day DS: Provider Date of admission: 07/05/16 19:52 Primary care physician: . No PCP Attending physician on admission: Ramsey Sauceda DO Consults: 07/07/16 13:11 Consult to Physician [CONS] Routine Comment: abdominal pain Consulting Provider: Kingston Cortez When should Consulting Provider be notified: Now Person Notified: Ld Date Notified: 07/07/16 Time Notified: 13:12 Discharging clinician: Shahzad Pompa DO
== END 2016-07-08 14:20 | disposition home or self-care (01) | DRG 439 ==
LOC: N.ED 18:11 → N.EDINP 19:52 → N.2E 20:12
PROVIDERS: ADMIT Family Medicine; ATTEND Family Medicine

== ENCOUNTER 2016-10-09 18:42 | Inpatient (IN) ==
--- NOTE | 2016-10-09 20:05 | Emergency Department Note ---
Arrival - Arrival Chief Complaint: Abdominal / Flank Pain Stated Complaint: pancreatitis ED Nursing Triage Note: C/o LUQ pain and N/V-onset two hours ago. Reports that pain is similar to previous pancreatitis flare ups. Actively vomiting in triage. Mode of Arrival: Ambulatory Time Seen by Provider: 10/09/16 19:23 - History of Present Illness HPI Narrative: This is a 35-year-old male with a history of bipolar disorder, hyperlipidemia, diverticulitis, seizure disorder, gout, psoriasis, hypertension, obstructive sleep apnea and chronic recurrent pancreatitis thought to be due to alcohol abuse which he denies abusing for more than 6 months who presents with epigastric abdominal pain which started today. There is no fever chest pain shortness of breath or diarrhea. The patient is asking for Dilaudid to control his pain. Allergies/Adverse Reactions: Allergies Allergy/AdvReac Type Severity Reaction Status Date / Time Cefaclor [From Ceclor] AdvReac HIVES Verified 10/21/15 10:07 Home Medications: Home Medications Medication Instructions Recorded Confirmed Type Benazepril HCl 20 mg PO QAM 10/21/15 07/05/16 History LORazepam [Ativan] 2 mg PO TID 10/21/15 07/05/16 History Sertraline HCl 100 mg PO BEDTIME 10/21/15 07/05/16 History Tramadol HCl/Acetaminophen 1 each PO TID PRN #30 tablet 07/08/16 Rx [Ultracet Tablet] Review of System - Review of System Constitutional: Absent: fever, night sweats Eyes: Absent: redness, vision change Head/Ears/Nose/Throat: Absent: epistaxis, nasal drainage Respiratory: Absent: respiratory distress, wheezing Cardiovascular: Absent: dyspnea on exertion, orthopnea Gastrointestinal: Present: abdominal pain. Absent: diarrhea, constipation, melena Genitourinary male: Absent: hematuria, discharge, testicular pain Musculoskeletal: Absent: joint swelling, lower back pain Skin: Absent: change in color, change in hair/nails Neurological: Absent: numbness, paresthesias Psychiatric: Absent: suicidal thoughts, homicidal thoughts Endocrine: Absent: polydipsia, polyuria Hematological/Lymphatic: Absent: easy bruising, lymphadenopathy Allergic/Immunologic: Absent: urticaria, itchy eyes Medical,Surgical,& Family Hx - Medical History Cardio: History of: Hypertension No history of: Aneurysm, Cardiac Dysrhythmia, Cerebrovascular Disease, Congenital Heart Disease, CHF, CAD, [place], Pacemaker, PVD, Valvular Heart Disease, Cardiovascular Problems Psychological: History of: Anxiety Disorders, Bipolar Disorder, Psychiatric Problems (MANIC DEPRESSION) No history of: ADHD, Behavior Problems, Depression, Previous Suicide Attempt , Psychiatric/Substance Abuse Tx, Schizophrenia, Violent Behavior Neurology: History of: Seizures No history of: Brain Aneurysm, Cerebral Hemorrhage, Cerebrovascular Accident , Cerebral Palsy, Dementia, Migraine, Multiple Sclerosis, Parkinson's Disease, Peripheral Neuropathy, TIA, Vertigo, Neurologocal Cancer HEENT: History of: Eye Problem (wears glasses), HEENT Problems (RINGING IN EARS WHEN HAS SINUS PROBLEMS) No history of: Ear Problem, Dental Problems, Glaucoma, Oral Cancer Endocrine: History of: Dyslipidemia Rheumatology: History of;: Gout (FEET), Psoriasis No history of;: Fibromyalgia, Myasthenia Gravis, Rheumatoid Arthritis, Sjogrens, Systemic Lupus Erythematosus, Rheumatological Problems Respiratory: History of: Obstructive Sleep Apnea (CPAP AT NIGHT) No history of: Asthma, Bronchitis, COPD, Intubation, Pulmonary Embolism, Pulmonary Hypertension, Pneumonia, Lung Cancer, Respiratory Problems Renal: No history of: Renal (Kidney) Cancer, Dialysis, Renal Failure, Renal Problems Genitourinary: No history of: Bladder Problem, Kidney Stones, Prostate Problems, Recurring Urinary Tract Infections, Genitourinary Cancer, Problems Gastrointestinal: History of: Diverticulitis/ Diverticulosis, GERD, Pancreatitis , GI Problems (abd hernia at naval) No history of: Bowel Obstruction, Clostridium Difficile, Crohn's Disease, Esophageal Varices, Gastrointestinal Bleed, Hemorrhoids, Hematochezia, Hepatitis , Liver Problems, Polyps, Ulcerative Colitis, Gastrointestinal Cancer Musculoskeletal: No history of: Amputation, Back/Neck Problems, Degenerative Disk Disease, Herniated Disk, Osteoporosis, Musculoskeletal Cancer, Musculoskeletal Problems Hematology: History of: Anemia No history of: Blood Transfusion Reaction, Bleeding Problems, Clotting Problems, Sickle Cell Disease, Hematologic Cancer, Blood Disorders Other: No history of: Cancer, Eczema, HIV, Malignant Hyperthermia, MRSA, Vancomycin- Resistant Enterococci, Skin Problems, Miscellaneous Medical Problems - Surgical History Cardiac Surgeries: Patient Denies: Femoral-Popliteal Bypass Graft, Cardiac Catheterization, Cardiac Surgery, Carotid Endarterectomy, Internal Defibrillator, Vascular Access Devices Thoracic Surgeries: Patient denies;: Kidney (Renal Surgery), Lithotripsy, Nephrectomy, Organ Transplant, Lobectomy Neurologic Surgeries: Patient denies: Brain Aneurysm, Cerebral Hemorrhage, Neurologic Surgery HEENT Surgeries: Surgical HX of: Tonsilectomy & Adenoidectomy (adenoidectomy) Patient denies: Carotid Endarterectomy, Eye Surgery Abdominal Surgeries: Patient denies: Abdominal Surgery, Appendectomy, Cholecystectomy, Colonoscopy , Gastric Bypass Surgery, EGD, Hernia Repair, Splenectomy Reproductive Surgeries: Patient denies;: Cystoscopy, Genitourinary Surgery, Prostate Surgery Orthopedic Surgeries: Patient denies;: Implanted Devices, Orthopedic Surgery, Spinal Surgery, Total Hip Replacement, Total Knee Replacement - Family History Family History: Reports;: Family Heart Disease (GRANDPARENTS (PAT AND MAT)), Family Hypertension Denies;: Family Anesthesia Reaction, Family Cancer, Family Diabetes, Family Psychiatric Problems, Family Stroke - Social History Smoking Status: Never smoker Frequency of Alcohol Use: None Type of Drug Use: None Exam Vital Signs: Vital Signs Temperature 96.9 F L 10/09/16 18:54 Pulse Rate 94 H 10/09/16 18:54 Respiratory Rate 18 10/09/16 18:54 Blood Pressure 165/113 10/09/16 18:54 O2 Sat by Pulse Oximetry 100 10/09/16 18:54 - General Exam limited due to: ALOC - Eye Eye exam: Present: PERRL, EOMI - ENT ENT exam: Present: normal exam, normal oropharynx - Neck Neck exam: Present: normal inspection, full ROM - Chest Chest inspection: Present: normal inspection - Respiratory Respiratory exam: Present: normal lung sounds bilaterally - Cardiovascular Cardiovascular exam: Present: regular rate, normal rhythm - Abdominal Exam Abdominal exam: Present: soft, normal bowel sounds - Extremities Exam Extremities exam: Present: normal inspection - Back Exam Back exam: Present: normal inspection - Neurological Exam Neurological exam: Present: alert, oriented X3 - Psychiatric Psychiatric exam: Present: normal affect, normal mood - Skin Skin exam: Present: warm, dry
[2016-10-09] MEDS ORDERED: HYDROmorphone 2 MG/1 ML VIAL IV STA ×3 (20:12→21:33)
[2016-10-09] MEDS ORDERED: SODIUM CHLORIDE 0.9% 1,000 ML IV STA (20:12)
[2016-10-09] MEDS ORDERED: ONDANSETRON 4 MG/2 ML VIAL IV STA (20:13)
[2016-10-09] MEDS ORDERED: ONDANSETRON 4 MG/2 ML VIAL ONE (20:17)
[2016-10-09] MEDS ORDERED: HYDROmorphone 2 MG/1 ML VIAL ONE ×3 (20:18→21:39)
[2016-10-09 20:23] LABS: Basophils # 0.1 10*3/uL (0.0-0.2); Basophils % 0.8 % (0.0-0.8); Eosinophils # 0.4 10*3/uL (0.0-0.87); Eosinophils % 4.3 % (0.00-10.9); Hemoglobin 14.9 GM/DL (14.0-18.0); Immature Granulocytes % 0.7 %; Immature Granulocytes Absolute 0.06 #; Lymphocytes # 4.1 10*3/uL (1.4-4.0); Lymphocytes % 45.6 % (21.2-54.2); Mean Corpuscular HGB Conc 34.7 GM/DL (32-36); Mean Corpuscular Hemoglobin 35 PG (27-34); Mean Corpuscular Volume 99.8 FL (87-102); Mean Platelet Volume 12.1 FL (9.6-12.0); Monocytes # 0.5 10*3/uL (0.11-0.8); Neutrophils # 3.9 10*3/uL (1.4-7.4); Neutrophils % 42.6 % (38.7-73.9); Platelet Count 134 T/CUMM (130-400); Red Blood Count 4.31 MC/CUMM (3.8-5.5); Red Cell Distribution Width 12.2 % (9.3-17.3)
[2016-10-09 20:33] LABS: Albumin 3.5 G/DL (3.4-5.0); Bilirubin,Total 0.5 MG/DL (0.2-1.0); Calcium 8.3 MG/DL (8.5-10.1); Osmolality,Calculated 277.5 MOS/KG (273-304); Potassium 4.2 MMOL/L (3.5-5.1); Total Protein 7.2 G/DL (6.4-8.3)
[2016-10-09] MEDS ORDERED: PROMETHAZINE 25 MG/1 ML VIAL IM PRN (21:38)
[2016-10-09] MEDS ORDERED: ONDANSETRON 4 MG/2 ML VIAL IV PRN (21:38)
[2016-10-09] MEDS: DEXTROSE 5% NACL 0.9% 1,000 ML IV SCH (23:30)
[2016-10-09] MEDS: HYDROmorphone 2 MG/1 ML VIAL IV PRN (23:36)
[2016-10-10 03:36] LABS: Basophils % 0.3 % (0.0-0.8); Eosinophils % 0.4 % (0.00-10.9); Hematocrit 39.9 VOL% (42.0-52.0); Hemoglobin 14.1 GM/DL (14.0-18.0); Immature Granulocytes % 0.5 %; Immature Granulocytes Absolute 0.05 #; Lymphocytes # 1.2 10*3/uL (1.4-4.0); Lymphocytes % 13.3 % (21.2-54.2); Mean Corpuscular HGB Conc 35.3 GM/DL (32-36); Mean Corpuscular Hemoglobin 35 PG (27-34); Mean Platelet Volume 12.1 FL (9.6-12.0); Monocytes # 0.5 10*3/uL (0.11-0.8); Neutrophils # 7.4 10*3/uL (1.4-7.4); Neutrophils % 80.5 % (38.7-73.9); Platelet Count 121 T/CUMM (130-400); Red Blood Count 4.07 MC/CUMM (3.8-5.5); Red Cell Distribution Width 12.2 % (9.3-17.3); White Blood Count 9.2 T/CUMM (4-12)
[2016-10-10] MEDS: HYDROmorphone 2 MG/1 ML VIAL IV PRN ×5 (03:50→20:00)
[2016-10-10 04:14] LABS: Albumin 3.4 G/DL (3.4-5.0); Bilirubin,Total 0.4 MG/DL (0.2-1.0); Calcium 8.2 MG/DL (8.5-10.1); Osmolality,Calculated 275.5 MOS/KG (273-304); Potassium 4.1 MMOL/L (3.5-5.1); Total Protein 6.6 G/DL (6.4-8.3)
[2016-10-10] MEDS: DEXTROSE 5% NACL 0.9% 1,000 ML IV SCH ×3 (07:59→21:48)
--- NOTE | 2016-10-10 08:20 | CT Report ---
Exam: CT abdomen and pelvis with intravenous contrast Exam date: 10/09/2016 at 2112 hours Clinical History: 35-year-old male, pain, abdominal pain generalized radiating to epigastric Technique: Axial computed tomography images of the abdomen and pelvis with intravenous contrast. All CT scans at this facility use one or more dose reduction techniques. Automated exposure control, MA/KV adjustment per patient size (including targeted exam Square dose is matched to indication) or iterative reconstruction technique Contrast: 100 mL of Omnipaque 350 administered intravenously Comparison: July 05, 2016 Findings: Motion artifact degrades image quality. Lower thorax: No acute pathologic findings at the lung bases Abdomen: Liver: Enlarged with Fatty infiltration measuring up to 23.0 cm in long dimension. Gallbladder and bile ducts: Gallbladder is prominent. No calcified stones. No ductal dilatation. Pancreas: Stranding involving the head and uncinate process of the pancreas as well as along the second and third segments of the duodenum. Mild duodenal thickening.. Spleen: Spleen is enlarged measuring up to 19.0 cm. Adrenals: No adrenal mass. Kidneys and ureters: Unremarkable. No hydronephrosis. No ureteral calculus. Stomach and bowel: Diverticulosis without associated inflammatory changes. No evidence of acute gastritis, colitis or enteritis. No bowel obstruction. Appendix: Unremarkable. No primary or secondary signs to suggest appendicitis. Pelvis: Bladder: Unremarkable Reproductive: The uterus and left adnexa are unremarkable. 2.5 cm right ovarian cyst. Abdomen and pelvis: Intraperitoneal space: No pneumoperitoneum. No free intraperitoneal fluid Bones/joints: No acute osseous abnormality Soft tissues: Small fat-containing ventral hernia. Vasculature: No aortic aneurysm Lymph nodes: Nonspecific shotty mesenteric, inguinal and retroperitoneal lymph nodes Impression: 1. Appearance to suggest acute, uncomplicated pancreatitis. Correlate with appropriate laboratory values. 2. Likely reactive duodenitis without outlet obstruction 3. Hepatosplenomegaly with steatosis 4. Diverticulosis coli PROCEDURE INTERPRETED AT [facility] DEPARTMENT OF RADIOLOGY Final Report Signed by: Oral Porras
[2016-10-10] MEDS: DOCUSATE SODIUM 100 MG CAPSULE PO SCH ×2 (09:10→20:31)
[2016-10-10] MEDS: PANTOPRAZOLE 40 MG TABLET PO SCH (09:10)
[2016-10-10] MEDS ORDERED: ACETAMINOPHEN 325 MG TABLET PO PRN ×2 (09:31→17:09)
--- NOTE | 2016-10-10 11:40 | Family Practice History&Phys ---
Assessment and Plan (1) Acute pancreatitis Problem details: Admitted with pancreatitis and abdominal pain Status: Acute Assessment and plan: Acute exacerbation of pancreatitis. Patient has had multiple previous admissions for same. History of alcohol abuse but denies alcohol usage in the last year Current Visit: No Qualifiers: Pancreatitis type: alcohol induced (2) Hyperlipidemia Status: Chronic Assessment and plan: Stable at present Current Visit: No (3) Hypertension Status: Chronic Assessment and plan: Blood pressure elevated on admission but stable at present Current Visit: No (4) Obstructive sleep apnea Status: Chronic Assessment and plan: Stable on CPAP. Current Visit: No (5) Bipolar disorder Status: Chronic Assessment and plan: Stable on present medications Current Visit: No (6) Substance abuse Status: Chronic Assessment and plan: Continue use of multiple substances. Current Visit: No History of Present Illness Chief complaint: Abdominal pain and pancreatitis History of present illness: Mr. Clements is a 35 year old male Patient presented to emergency room complaining of several day history of progressive epigastric abdominal pain. Patient reports pain was very similar to pain is in the past with his recurrent pancreatitis. She had multiple previous admissions for pancreatitis. He was seen in emergency room and his lipase was 3758. Patient complained of extreme pain with nausea vomiting. His history of alcohol or drug abuse. Patient denies any alcohol usage in the last year. He does continue to abuse multiple drug substances. Seen in emergency room view of history admitted for evaluation therapy Home Medications Medication Instructions Recorded Confirmed Type Benazepril HCl 20 mg PO QAM 10/21/15 07/05/16 History LORazepam [Ativan] 2 mg PO TID 10/21/15 07/05/16 History Sertraline HCl 100 mg PO BEDTIME 10/21/15 07/05/16 History Tramadol HCl/Acetaminophen 1 each PO TID PRN #30 tablet 07/08/16 Rx [Ultracet Tablet] Allergies Allergy/AdvReac Type Severity Reaction Status Date / Time Cefaclor [From Ceclor] AdvReac HIVES Verified 10/21/15 10:07 Medical,Surgical,& Family Hx - Medical History Cardio: History of: Hypertension No history of: Aneurysm, Cardiac Dysrhythmia, Cerebrovascular Disease, Congenital Heart Disease, CHF, CAD, GA, Pacemaker, PVD, Valvular Heart Disease, Cardiovascular Problems Psychological: History of: Anxiety Disorders, Bipolar Disorder, Psychiatric Problems (MANIC DEPRESSION) No history of: ADHD, Behavior Problems, Depression, Previous Suicide Attempt , Psychiatric/Substance Abuse Tx, Schizophrenia, Violent Behavior Neurology: History of: Seizures No history of: Brain Aneurysm, Cerebral Hemorrhage, Cerebrovascular Accident , Cerebral Palsy, Dementia, Migraine, Multiple Sclerosis, Parkinson's Disease, Peripheral Neuropathy, TIA, Vertigo, Neurologocal Cancer HEENT: History of: Eye Problem (wears glasses), HEENT Problems (RINGING IN EARS WHEN HAS SINUS PROBLEMS) No history of: Ear Problem, Dental Problems, Glaucoma, Oral Cancer Endocrine: History of: Dyslipidemia Rheumatology: History of;: Gout (FEET), Psoriasis No history of;: Fibromyalgia, Myasthenia Gravis, Rheumatoid Arthritis, Sjogrens, Systemic Lupus Erythematosus, Rheumatological Problems Respiratory: History of: Obstructive Sleep Apnea (CPAP AT NIGHT) No history of: Asthma, Bronchitis, COPD, Intubation, Pulmonary Embolism, Pulmonary Hypertension, Pneumonia, Lung Cancer, Respiratory Problems Renal: No history of: Renal (Kidney) Cancer, Dialysis, Renal Failure, Renal Problems Genitourinary: No history of: Bladder Problem, Kidney Stones, Prostate Problems, Recurring Urinary Tract Infections, Genitourinary Cancer, Problems Gastrointestinal: History of: Diverticulitis/ Diverticulosis, GERD, Pancreatitis , GI Problems (abd hernia at [employer]) No history of: Bowel Obstruction, Clostridium Difficile, Crohn's Disease, Esophageal Varices, Gastrointestinal Bleed, Hemorrhoids, Hematochezia, Hepatitis , Liver Problems, Polyps, Ulcerative Colitis, Gastrointestinal Cancer Musculoskeletal: No history of: Amputation, Back/Neck Problems, Degenerative Disk Disease, Herniated Disk, Osteoporosis, Musculoskeletal Cancer, Musculoskeletal Problems Hematology: History of: Anemia No history of: Blood Transfusion Reaction, Bleeding Problems, Clotting Problems, Sickle Cell Disease, Hematologic Cancer, Blood Disorders Other: No history of: Cancer, Eczema, HIV, Malignant Hyperthermia, MRSA, Vancomycin- Resistant Enterococci, Skin Problems, Miscellaneous Medical Problems - Surgical History Cardiac Surgeries: Patient Denies: Femoral-Popliteal Bypass Graft, Cardiac Catheterization, Cardiac Surgery, Carotid Endarterectomy, Internal Defibrillator, Vascular Access Devices Thoracic Surgeries: Patient denies;: Kidney (Renal Surgery), Lithotripsy, Nephrectomy, Organ Transplant, Lobectomy Neurologic Surgeries: Patient denies: Brain Aneurysm, Cerebral Hemorrhage, Neurologic Surgery HEENT Surgeries: Surgical HX of: Tonsilectomy & Adenoidectomy (adenoidectomy) Patient denies: Carotid Endarterectomy, Eye Surgery Abdominal Surgeries: Patient denies: Abdominal Surgery, Appendectomy, Cholecystectomy, Colonoscopy , Gastric Bypass Surgery, EGD, Hernia Repair, Splenectomy Reproductive Surgeries: Patient denies;: Cystoscopy, Genitourinary Surgery, Prostate Surgery Orthopedic Surgeries: Patient denies;: Implanted Devices, Orthopedic Surgery, Spinal Surgery, Total Hip Replacement, Total Knee Replacement - Family History Family History: Reports;: Family Heart Disease (GRANDPARENTS (PAT AND MAT)), Family Hypertension Denies;: Family Anesthesia Reaction, Family Cancer, Family Diabetes, Family Psychiatric Problems, Family Stroke - Social History Smoking Status: Never smoker Frequency of Alcohol Use: None Type of Drug Use: None Marital Status: Single Lives With:: Alone Functional capacity: independent ambulation Exam - Constitutional Vitals: Period Temp Pulse Resp BP Sys/Velasquez Pulse Ox Last 24 Hr 96.9 F-98.0 F 78-94 13-22 123-182/51-115 95-100 General appearance: mild distress - Head Head exam: Present: normal inspection - Eye Pupils: Present: BHUMIKA - ENT ENT exam: Present: normal exam - Neck Neck exam: Present: normal inspection - Respiratory Respiratory exam: Present: clear to auscultation bilaterally - Cardiovascular Cardiovascular exam: Present: regular rate and rhythm - GI/Abdominal GI/Abdominal exam: Present: normal bowel sounds, other (Patient has diffuse epigastric tenderness on palpation) - Extremities Exam Extremities exam: Present: normal inspection - Back Exam Back exam: Present: normal inspection - Neurological Exam Neurological exam: Present: alert, oriented X3 - Psychiatric Psychiatric exam: Present: normal affect - Skin Skin exam: Present: normal color Results - Labs CBC & BMP: 10/10/16 02:48 10/10/16 02:48 Quality Measures - VTE Contraindication to Pharmacological VTE Prophylaxis: High Risk of Bleeding
[2016-10-10] MEDS ORDERED: ZALEPLON 5 MG CAPSULE PO PRN (16:47)
[2016-10-10] MEDS: BENAZEPRIL 10 MG TABLET PO SCH (17:42)
[2016-10-10 18:10] LABS: Apearance,Urine CLEAR (Clear); Bilirubin,Urine Negative (Negative); Blood, Urine Negative (Negative); Glucose,Urine (UA) Negative (Negative); Ketones,Urine Negative (Negative); Mucus,Urine Occasional /LPF (Occasional); Nitrite,Urine Negative (Negative); Protein,Urine Negative; RBC,Urine <1 /HPF (0-4); Urine Color Yellow (Yellow); Urine Specific Gravity 1.013 (1.001-1.035); Urine Urobilinogen < 2.0 EU/DL (0.2-1.0); WBC,Urine <1 /HPF (0-6)
[2016-10-10] MEDS: SERTRALINE 100 MG TABLET PO SCH (20:31)
[2016-10-10] MEDS: LORazepam 1 MG TABLET PO SCH (20:31)
[2016-10-10] MEDS: traMADol 50 MG TABLET PO PRN (20:32)
[2016-10-11] MEDS: HYDROmorphone 2 MG/1 ML VIAL IV PRN ×6 (00:13→20:08)
[2016-10-11 04:04] LABS: Basophils % 0.2 % (0.0-0.8); Eosinophils % 0.4 % (0.00-10.9); Hematocrit 40.1 VOL% (42.0-52.0); Immature Granulocytes % 0.4 %; Immature Granulocytes Absolute 0.04 #; Lymphocytes % 9.9 % (21.2-54.2); Mean Corpuscular HGB Conc 34.9 GM/DL (32-36); Mean Corpuscular Hemoglobin 34 PG (27-34); Mean Platelet Volume 12.5 FL (9.6-12.0); Monocytes # 0.7 10*3/uL (0.11-0.8); Monocytes % 7.3 % (1.7-12.7); Neutrophils # 8.2 10*3/uL (1.4-7.4); Neutrophils % 81.8 % (38.7-73.9); Platelet Count 66 T/CUMM (130-400); Red Blood Count 4.09 MC/CUMM (3.8-5.5)
[2016-10-11 04:34] LABS: Calcium 7.6 MG/DL (8.5-10.1); Magnesium 1.5 MG/DL (1.8-2.4); Potassium 3.3 MMOL/L (3.5-5.1); Risk Ratio 2.5; VLDL CHOLESTEROL 19.8 MG/DL
[2016-10-11 04:56] LABS: Band Neutrophils 4 % (0-10); Lymphocytes 5 % (20-55); Segmented Neutrophils 85 % (50-85); Total Cells Counted 100
[2016-10-11 04:57] LABS: Hypochromasia 1+; Platelet Estimate Decreased
[2016-10-11] MEDS: DEXTROSE 5% NACL 0.9% 1,000 ML IV SCH (08:08)
[2016-10-11] MEDS: BENAZEPRIL 10 MG TABLET PO SCH (08:09)
[2016-10-11] MEDS: PANTOPRAZOLE 40 MG TABLET PO SCH (08:09)
[2016-10-11] MEDS: DOCUSATE SODIUM 100 MG CAPSULE PO SCH ×2 (08:09→20:03)
[2016-10-11] MEDS: LORazepam 1 MG TABLET PO SCH ×3 (08:09→20:02)
[2016-10-11] MEDS: traMADol 50 MG TABLET PO PRN ×2 (10:11→21:59)
--- NOTE | 2016-10-11 10:45 | XRay Report ---
2 view chest October 11, 2016 at 0821 hours Indication: Shortness of breath Comparison: January 01, 2016 Findings: Cardiomediastinal contours are normal. Discoid atelectasis within the left lung base. No acute osseous abnormalities. Visualized upper abdomen demonstrates no acute pathology. Impression: Discoid atelectasis within the left lung base PROCEDURE INTERPRETED AT [facility] DEPARTMENT OF RADIOLOGY Final Report Signed by: Oral Porras
--- NOTE | 2016-10-11 12:08 | Family Practice Progress Note ---
Family Practice - PN: Subj Interval history: 10/11/16 -patient states that he is having continual epigastric abdominal pain but no nausea vomiting. Still not able to eat. He has not been out of bed because he states that it increases his abdominal pain. His a.m. labs are significantly improved. His amylase is normal and lipase is 1257. His lipase on admission was 3758 so this is a significant improvement. Still has diffuse tenderness on palpation over the epigastric region of abdomen. Potassium was slightly decreased at 3.3 so will start on supplementation. Cultures have been negative and a.m. chest x-ray is stable. We will continue present treatment plan Exam (Progress Note) - Constitutional Vitals: Period Temp Pulse Resp BP Sys/Velasquez Pulse Ox Last 24 Hr 97.1 F-98.9 F 75-108 16-20 132-161/84-110 95-97 Results - Labs CBC & BMP: 10/11/16 03:24 10/11/16 03:24 Assessment and Plan (1) Acute pancreatitis Problem details: Admitted with pancreatitis and abdominal pain Status: Acute Assessment and plan: Acute exacerbation of pancreatitis. Patient has had multiple previous admissions for same. History of alcohol abuse but denies alcohol usage in the last year Current Visit: No Qualifiers: Pancreatitis type: alcohol induced (2) Hyperlipidemia Status: Chronic Assessment and plan: Stable at present Current Visit: No (3) Hypertension Status: Chronic Assessment and plan: Blood pressure elevated on admission but stable at present Current Visit: No (4) Obstructive sleep apnea Status: Chronic Assessment and plan: Stable on CPAP. Current Visit: No (5) Bipolar disorder Status: Chronic Assessment and plan: Stable on present medications Current Visit: No (6) Substance abuse Status: Chronic Assessment and plan: Continue use of multiple substances. Current Visit: No Quality Measures - VTE Contraindication to Pharmacological VTE Prophylaxis: High Risk of Bleeding
[2016-10-11] MEDS: MAGNESIUM OXIDE 400 MG TABLET PO SCH ×2 (12:27→20:01)
[2016-10-11] MEDS: DEXT 5% NACL 0.9% KCL 20 MEQ 20 MEQ/1,000 ML BAG IV SCH ×2 (13:15→21:10)
[2016-10-11] MEDS: SERTRALINE 100 MG TABLET PO SCH (20:03)
[2016-10-12] MEDS: HYDROmorphone 2 MG/1 ML VIAL IV PRN ×6 (00:05→20:01)
[2016-10-12] MEDS: DEXT 5% NACL 0.9% KCL 20 MEQ 20 MEQ/1,000 ML BAG IV SCH ×3 (05:29→21:33)
[2016-10-12 05:40] LABS: Basophils % 0.2 % (0.0-0.8); Eosinophils # 0.1 10*3/uL (0.0-0.87); Eosinophils % 0.7 % (0.00-10.9); Hematocrit 36.1 VOL% (42.0-52.0); Hemoglobin 12.6 GM/DL (14.0-18.0); Immature Granulocytes % 2.1 %; Lymphocytes # 1.9 10*3/uL (1.4-4.0); Mean Corpuscular HGB Conc 34.9 GM/DL (32-36); Mean Corpuscular Hemoglobin 35 PG (27-34); Mean Corpuscular Volume 100.6 FL (87-102); Mean Platelet Volume 12.9 FL (9.6-12.0); Monocytes # 0.3 10*3/uL (0.11-0.8); Monocytes % 2.9 % (1.7-12.7); Neutrophils # 7.1 10*3/uL (1.4-7.4); Neutrophils % 74.1 % (38.7-73.9); Red Blood Count 3.59 MC/CUMM (3.8-5.5); Red Cell Distribution Width 12.2 % (9.3-17.3); White Blood Count 9.5 T/CUMM (4-12)
[2016-10-12 05:44] LABS: Platelet Count 57 T/CUMM (130-400)
[2016-10-12 06:10] LABS: Calcium 7.3 MG/DL (8.5-10.1); Potassium 3.2 MMOL/L (3.5-5.1)
[2016-10-12 06:24] LABS: Band Neutrophils 7 % (0-10); Lymphocytes 11 % (20-55); Segmented Neutrophils 78 % (50-85); Total Cells Counted 100
[2016-10-12 06:25] LABS: Giant Platelets Few; Hypochromasia 1+; Platelet Estimate Decreased
[2016-10-12] MEDS: PANTOPRAZOLE 40 MG TABLET PO SCH (08:05)
[2016-10-12] MEDS: MAGNESIUM OXIDE 400 MG TABLET PO SCH ×2 (08:06→21:30)
[2016-10-12] MEDS: DOCUSATE SODIUM 100 MG CAPSULE PO SCH ×2 (08:06→21:29)
--- NOTE | 2016-10-12 08:06 | Family Practice Progress Note ---
Family Practice - PN: Subj Interval history: 10/11/16 -patient states that he is having continual epigastric abdominal pain but no nausea vomiting. Still not able to eat. He has not been out of bed because he states that it increases his abdominal pain. His a.m. labs are significantly improved. His amylase is normal and lipase is 1257. His lipase on admission was 3758 so this is a significant improvement. Still has diffuse tenderness on palpation over the epigastric region of abdomen. Potassium was slightly decreased at 3.3 so will start on supplementation. Cultures have been negative and a.m. chest x-ray is stable. We will continue present treatment plan 10/12/16 -patient states that pain is slowly improving. He is tolerating liquids. Still has some nausea when trying to stop that. His a.m. lipase is 388 which is dramatically improved and near normal. He still has pain on palpation of epigastric region. We will continue present treatment plan Exam (Progress Note) - Constitutional Vitals: Period Temp Pulse Resp BP Sys/Velasquez Pulse Ox Last 24 Hr 97.1 F-98.7 F 108-126 16-20 106-153/61-87 91-98 Results - Labs CBC & BMP: 10/12/16 04:32 10/12/16 04:32 Assessment and Plan (1) Acute pancreatitis Problem details: Admitted with pancreatitis and abdominal pain Status: Acute Assessment and plan: Acute exacerbation of pancreatitis. Patient has had multiple previous admissions for same. History of alcohol abuse but denies alcohol usage in the last year Current Visit: No Qualifiers: Pancreatitis type: alcohol induced (2) Hyperlipidemia Status: Chronic Assessment and plan: Stable at present Current Visit: No (3) Hypertension Status: Chronic Assessment and plan: Blood pressure elevated on admission but stable at present Current Visit: No (4) Obstructive sleep apnea Status: Chronic Assessment and plan: Stable on CPAP. Current Visit: No (5) Bipolar disorder Status: Chronic Assessment and plan: Stable on present medications Current Visit: No (6) Substance abuse Status: Chronic Assessment and plan: Continue use of multiple substances. Current Visit: No Quality Measures - VTE Contraindication to Pharmacological VTE Prophylaxis: High Risk of Bleeding
[2016-10-12] MEDS: BENAZEPRIL 10 MG TABLET PO SCH (08:07)
[2016-10-12] MEDS: LORazepam 1 MG TABLET PO SCH ×3 (08:07→21:29)
[2016-10-12] MEDS: traMADol 50 MG TABLET PO PRN ×2 (13:40→21:30)
[2016-10-12] MEDS: SERTRALINE 100 MG TABLET PO SCH (21:30)
[2016-10-13] MEDS: HYDROmorphone 2 MG/1 ML VIAL IV PRN ×6 (01:09→23:29)
[2016-10-13 04:19] LABS: Basophils % 0.3 % (0.0-0.8); Eosinophils # 0.1 10*3/uL (0.0-0.87); Eosinophils % 1.8 % (0.00-10.9); Hematocrit 32.6 VOL% (42.0-52.0); Hemoglobin 11.2 GM/DL (14.0-18.0); Immature Granulocytes % 1.1 %; Immature Granulocytes Absolute 0.07 #; Lymphocytes # 1.3 10*3/uL (1.4-4.0); Lymphocytes % 19.3 % (21.2-54.2); Mean Corpuscular HGB Conc 34.4 GM/DL (32-36); Mean Corpuscular Hemoglobin 35 PG (27-34); Mean Corpuscular Volume 101.2 FL (87-102); Mean Platelet Volume 13.2 FL (9.6-12.0); Monocytes # 0.7 10*3/uL (0.11-0.8); Monocytes % 9.9 % (1.7-12.7); Neutrophils # 4.5 10*3/uL (1.4-7.4); Neutrophils % 67.6 % (38.7-73.9); Platelet Count 45 T/CUMM (130-400); Red Blood Count 3.22 MC/CUMM (3.8-5.5); Red Cell Distribution Width 11.9 % (9.3-17.3); White Blood Count 6.6 T/CUMM (4-12)
[2016-10-13 04:49] LABS: Band Neutrophils 2 % (0-10); Eosinophils 1 % (0-10); Hypochromasia 1+; Lymphocytes 16 % (20-55); Ovalocytes Slight; Platelet Estimate Decreased; Segmented Neutrophils 78 % (50-85); Total Cells Counted 100
[2016-10-13 04:50] LABS: Giant Platelets Few
[2016-10-13 05:16] LABS: Calcium 7.5 MG/DL (8.5-10.1); Potassium 2.8 MMOL/L (3.5-5.1)
[2016-10-13] MEDS: DEXT 5% NACL 0.9% KCL 20 MEQ 20 MEQ/1,000 ML BAG IV SCH ×3 (05:31→17:10)
--- NOTE | 2016-10-13 08:37 | Family Practice Progress Note ---
Family Practice - PN: Subj Interval history: 10/11/16 -patient states that he is having continual epigastric abdominal pain but no nausea vomiting. Still not able to eat. He has not been out of bed because he states that it increases his abdominal pain. His a.m. labs are significantly improved. His amylase is normal and lipase is 1257. His lipase on admission was 3758 so this is a significant improvement. Still has diffuse tenderness on palpation over the epigastric region of abdomen. Potassium was slightly decreased at 3.3 so will start on supplementation. Cultures have been negative and a.m. chest x-ray is stable. We will continue present treatment plan 10/12/16 -patient states that pain is slowly improving. He is tolerating liquids. Still has some nausea when trying to stop that. His a.m. lipase is 388 which is dramatically improved and near normal. He still has pain on palpation of epigastric region. We will continue present treatment plan 10/13/16 -patient continues to slowly improve. States she continues to have some abdominal pain and nausea is definitely improved. A.m. labs revealed a potassium of 2.8. I have started on aggressive supplementation. His physical exam is stable but he continues to have some pain on palpation over the epigastric region of abdomen. Remainder of exam is unremarkable. Will encourage patient to increase activity and diet if possible. Will replenish potassium and repeat in a.m. Exam (Progress Note) - Constitutional Vitals: Period Temp Pulse Resp BP Sys/Velasquez Pulse Ox Last 24 Hr 96.6 F-98.2 F 105-115 18-20 98-143/54-78 90-97 Results - Labs CBC & BMP: 10/13/16 03:31 10/13/16 03:30 Assessment and Plan (1) Acute pancreatitis Problem details: Admitted with pancreatitis and abdominal pain Status: Acute Assessment and plan: Acute exacerbation of pancreatitis. Patient has had multiple previous admissions for same. History of alcohol abuse but denies alcohol usage in the last year Current Visit: No Qualifiers: Pancreatitis type: alcohol induced (2) Hyperlipidemia Status: Chronic Assessment and plan: Stable at present Current Visit: No (3) Hypertension Status: Chronic Assessment and plan: Blood pressure elevated on admission but stable at present Current Visit: No (4) Obstructive sleep apnea Status: Chronic Assessment and plan: Stable on CPAP. Current Visit: No (5) Bipolar disorder Status: Chronic Assessment and plan: Stable on present medications Current Visit: No (6) Substance abuse Status: Chronic Assessment and plan: Continue use of multiple substances. Current Visit: No Quality Measures - VTE Contraindication to Pharmacological VTE Prophylaxis: High Risk of Bleeding
[2016-10-13] MEDS ORDERED: POTASSIUM CHLORIDE INJ 50 MEQ in SODIUM CHLORIDE 0.9% 500 ML IV ONE (09:30)
[2016-10-13] MEDS: DOCUSATE SODIUM 100 MG CAPSULE PO SCH ×2 (09:45→20:59)
[2016-10-13] MEDS: BENAZEPRIL 10 MG TABLET PO SCH (09:45)
[2016-10-13] MEDS: LORazepam 1 MG TABLET PO SCH ×3 (09:45→20:59)
[2016-10-13] MEDS: MAGNESIUM OXIDE 400 MG TABLET PO SCH ×2 (09:46→20:59)
[2016-10-13] MEDS: PANTOPRAZOLE 40 MG TABLET PO SCH (09:46)
[2016-10-13] MEDS: traMADol 50 MG TABLET PO PRN (13:07)
[2016-10-13] MEDS: SERTRALINE 100 MG TABLET PO SCH (20:59)
[2016-10-14] MEDS: DEXT 5% NACL 0.9% KCL 20 MEQ 20 MEQ/1,000 ML BAG IV SCH ×4 (00:56→20:53)
[2016-10-14] MEDS: HYDROmorphone 2 MG/1 ML VIAL IV PRN ×5 (04:30→23:38)
[2016-10-14 05:51] LABS: Basophils % 0.3 % (0.0-0.8); Eosinophils # 0.1 10*3/uL (0.0-0.87); Hemoglobin 10.4 GM/DL (14.0-18.0); Immature Granulocytes % 0.8 %; Immature Granulocytes Absolute 0.03 #; Lymphocytes % 24.8 % (21.2-54.2); Mean Corpuscular HGB Conc 34.7 GM/DL (32-36); Mean Corpuscular Hemoglobin 35 PG (27-34); Mean Corpuscular Volume 101.4 FL (87-102); Mean Platelet Volume 13.3 FL (9.6-12.0); Monocytes # 0.5 10*3/uL (0.11-0.8); Monocytes % 13.2 % (1.7-12.7); Neutrophils # 2.3 10*3/uL (1.4-7.4); Neutrophils % 57.9 % (38.7-73.9); Red Blood Count 2.96 MC/CUMM (3.8-5.5); Red Cell Distribution Width 11.7 % (9.3-17.3)
[2016-10-14 05:52] LABS: Platelet Count 54 T/CUMM (130-400)
[2016-10-14 06:17] LABS: Band Neutrophils 1 % (0-10); Eosinophils 3 % (0-10); Lymphocytes 14 % (20-55); Segmented Neutrophils 72 % (50-85); Total Cells Counted 100
[2016-10-14 06:18] LABS: Giant Platelets Few; Hypochromasia 1+; Platelet Estimate Decreased
[2016-10-14 06:23] LABS: Bilirubin,Total 0.8 MG/DL (0.2-1.0); Calcium 7.6 MG/DL (8.5-10.1); Total Protein 5.1 G/DL (6.4-8.3)
[2016-10-14 06:24] LABS: Osmolality,Calculated 270.8 MOS/KG (273-304); Potassium 3.3 MMOL/L (3.5-5.1)
--- NOTE | 2016-10-14 08:08 | Family Practice Progress Note ---
Family Practice - PN: Subj Interval history: 10/11/16 -patient states that he is having continual epigastric abdominal pain but no nausea vomiting. Still not able to eat. He has not been out of bed because he states that it increases his abdominal pain. His a.m. labs are significantly improved. His amylase is normal and lipase is 1257. His lipase on admission was 3758 so this is a significant improvement. Still has diffuse tenderness on palpation over the epigastric region of abdomen. Potassium was slightly decreased at 3.3 so will start on supplementation. Cultures have been negative and a.m. chest x-ray is stable. We will continue present treatment plan 10/12/16 -patient states that pain is slowly improving. He is tolerating liquids. Still has some nausea when trying to stop that. His a.m. lipase is 388 which is dramatically improved and near normal. He still has pain on palpation of epigastric region. We will continue present treatment plan 10/13/16 -patient continues to slowly improve. States she continues to have some abdominal pain and nausea is definitely improved. A.m. labs revealed a potassium of 2.8. I have started on aggressive supplementation. His physical exam is stable but he continues to have some pain on palpation over the epigastric region of abdomen. Remainder of exam is unremarkable. Will encourage patient to increase activity and diet if possible. Will replenish potassium and repeat in a.m. 10/14/16 -patient ambulated in the [place] last p.m. Still complaining of epigastric abdominal pain. It usually takes a number of days for the pancreatic swelling to subside and pain to resolve. Will advance diet today and again encourage patient to stay out of bed and ambulate. His lab studies are stable. Should be ready for discharge very soon Exam (Progress Note) - Constitutional Vitals: Period Temp Pulse Resp BP Sys/Velasquez Pulse Ox Last 24 Hr 97.1 F-98.1 F 61-95 18-20 122-138/59-87 92-98 Results - Labs CBC & BMP: 10/14/16 04:41 10/14/16 04:41 Assessment and Plan (1) Acute pancreatitis Problem details: Admitted with pancreatitis and abdominal pain Status: Acute Assessment and plan: Acute exacerbation of pancreatitis. Patient has had multiple previous admissions for same. History of alcohol abuse but denies alcohol usage in the last year Current Visit: No Qualifiers: Pancreatitis type: alcohol induced (2) Hyperlipidemia Status: Chronic Assessment and plan: Stable at present Current Visit: No (3) Hypertension Status: Chronic Assessment and plan: Blood pressure elevated on admission but stable at present Current Visit: No (4) Obstructive sleep apnea Status: Chronic Assessment and plan: Stable on CPAP. Current Visit: No (5) Bipolar disorder Status: Chronic Assessment and plan: Stable on present medications Current Visit: No (6) Substance abuse Status: Chronic Assessment and plan: Continue use of multiple substances. Current Visit: No Quality Measures - VTE Contraindication to Pharmacological VTE Prophylaxis: High Risk of Bleeding
[2016-10-14] MEDS: LORazepam 1 MG TABLET PO SCH ×3 (09:02→20:52)
[2016-10-14] MEDS: MAGNESIUM OXIDE 400 MG TABLET PO SCH ×2 (09:07→20:53)
[2016-10-14] MEDS: BENAZEPRIL 10 MG TABLET PO SCH (09:07)
[2016-10-14] MEDS: PANTOPRAZOLE 40 MG TABLET PO SCH (09:07)
[2016-10-14] MEDS: DOCUSATE SODIUM 100 MG CAPSULE PO SCH ×2 (09:07→20:52)
[2016-10-14] MEDS: POTASSIUM CHLORIDE RIDER 10 MEQ in PREMIX 1 EACH IV PRN ×3 (09:10→12:36)
[2016-10-14] MEDS: traMADol 50 MG TABLET PO PRN ×2 (12:37→20:52)
[2016-10-14] MEDS: SERTRALINE 100 MG TABLET PO SCH (20:53)
[2016-10-15] MEDS: DEXT 5% NACL 0.9% KCL 20 MEQ 20 MEQ/1,000 ML BAG IV SCH ×3 (01:22→12:52)
[2016-10-15] MEDS: HYDROmorphone 2 MG/1 ML VIAL IV PRN ×2 (04:40→09:18)
[2016-10-15 07:15] LABS: Basophils % 0.5 % (0.0-0.8); Eosinophils # 0.1 10*3/uL (0.0-0.87); Eosinophils % 2.7 % (0.00-10.9); Hematocrit 31.6 VOL% (42.0-52.0); Hemoglobin 10.8 GM/DL (14.0-18.0); Immature Granulocytes % 1.4 %; Immature Granulocytes Absolute 0.05 #; Mean Corpuscular HGB Conc 34.2 GM/DL (32-36); Mean Corpuscular Hemoglobin 35 PG (27-34); Mean Platelet Volume 13.3 FL (9.6-12.0); Monocytes # 0.5 10*3/uL (0.11-0.8); Monocytes % 13.5 % (1.7-12.7); Neutrophils % 54.9 % (38.7-73.9); Platelet Count 56 T/CUMM (130-400); Red Blood Count 3.13 MC/CUMM (3.8-5.5); Red Cell Distribution Width 11.9 % (9.3-17.3); White Blood Count 3.7 T/CUMM (4-12)
[2016-10-15 08:05] LABS: Hypochromasia 1+; Polychromasia Slight
[2016-10-15] MEDS: BENAZEPRIL 10 MG TABLET PO SCH (09:18)
[2016-10-15] MEDS: MAGNESIUM OXIDE 400 MG TABLET PO SCH (09:18)
[2016-10-15] MEDS: LORazepam 1 MG TABLET PO SCH (09:18)
[2016-10-15] MEDS: PANTOPRAZOLE 40 MG TABLET PO SCH (09:18)
[2016-10-15] MEDS: DOCUSATE SODIUM 100 MG CAPSULE PO SCH (09:18)
[2016-10-15] MEDS: traMADol 50 MG TABLET PO PRN (11:05)
[2016-10-15 12:04] VITALS: BP 133/82
--- NOTE | 2016-10-15 13:53 | Discharge Summary ---
Hospital Course - Hospital Course Hospital Course: This is a 35 year old male patient of Dr. Sauceda with history of HTN, drug and alcohol abuse, recurrent pancreatitis, who has been here in hospital with another episode of recurrent pancreatitis which has improved over the course of the week. He has been able to tolerate solid food today and will be discharged to home. He reports abdominal pain LUQ, but still wants to go home. Thrombopenia which has improved over the last few days, so he will need an updated CBC at Dr. Sauceda's clinic on follow up. Also, patient reports history of abdominal hernia and would like to see a surgeon in [place]. He will make appointment himself. He reports having multiple workups for gallbladder disease and that he has stopped drinking alcohol about a year ago. Diagnosis - Discharge Diagnosis (1) Abdominal pain Status: Acute (2) Acute pancreatitis Status: Acute (3) Hypokalemia Status: Resolved (4) Bipolar disorder Status: Chronic (5) Hypertension Status: Chronic (6) History of alcohol abuse Status: Chronic Discharge Plan - Discharge Data Disposition: Disch To Home/Self Care Condition at Discharge: Stable Discharge Diet: low fat, low cholesterol (also, avoid peppers and heavy spices) Activity: resume usual activities as tolerated, increase activity as tolerated - Discharge Medications New Acetaminophen Tab [Tylenol Tab] 650 mg PO Q6H PRN tablet PRN Reason: Fever > 100.4 Or Headache Docusate Sodium Cap [Colace Cap] 100 mg PO BID capsule Magnesium Oxide 800 mg PO BID tablet Continue LORazepam [Ativan] 2 mg PO TID Benazepril HCl 20 mg PO QAM Sertraline HCl 100 mg PO BEDTIME Tramadol HCl/Acetaminophen [Ultracet Tablet] 1 each PO TID PRN #30 tablet PRN Reason: Abdominal Pain Zolpidem Tartrate [Ambien] 10 mg PO BEDTIME PRN PRN Reason: Sleep - Follow Up or Referral Follow Up: Ramsey Sauceda DO [Physician] - - Forms/Instructions Additional Discharge Instructions: Follow up with Dr. Sauceda in clinic within the next 1-2 weeks, and at that time, repeat CBC and fasting basic chemistry panel at [facility]. The patient will make his own appointment with surgeon in [place] regarding abdominal hernia. Instruct him to advance diet carefully and soft/mechanical soft solids over the weekend. Keep up adequate hydration. Exam - Constitutional Vitals: Period Temp Pulse Resp BP Sys/Velasquez Pulse Ox Last 24 Hr 96.8 F-98.8 F 72-92 16-22 132-139/66-93 20-98 General appearance: no acute distress - Head Head exam: Present: normocephalic - Eye Eye exam: Present: EOMI - Respiratory Respiratory exam: Present: clear to auscultation bilaterally - Cardiovascular Cardiovascular exam: Present: regular rate and rhythm - GI/Abdominal GI/Abdominal exam: Present: normal bowel sounds, tenderness (mild to LUQ), soft - Extremities Exam Extremities exam: Absent: edema - Neurological Exam Neurological exam: Present: alert, oriented X3, CN II-XII intact - Psychiatric Psychiatric exam: Present: anxious (and emotional; he wants to go home) - Skin Skin exam: Present: warm, dry Discharge Results Labs on day of discharge: Labs from last 24 hours 10/15/16 10/15/16 10/14/16 04:40 04:40 13:57 WBC 3.7 L RBC 3.13 L Hgb 10.8 L Hct 31.6 L MCV 101.0 MCH 35 H MCHC 34.2 RDW 11.9 Plt Count 56 L MPV 13.3 H Neut % (Auto) 54.9 Lymph % (Auto) 27.0 [place] % (Auto) 13.5 H Eos % (Auto) 2.7 Baso % (Auto) 0.5 Neut # (Auto) 2.0 Lymph # (Auto) 1.0 L [place] # (Auto) 0.5 Eos # (Auto) 0.1 Baso # (Auto) 0.0 Immature Gran % 1.4 Nucleated RBC % 0.0 Immature Gran # 0.05 Nucleated RBCs # 0.00 Immature Plt Fraction 20.3 H Polychromasia Slight Hypochromasia 1+ Potassium 4.0 Lipase 307.0 D - Imaging and Cardiology Procedure: Chest x-ray: report reviewed by me, image reviewed by me, CT Abdomen and Pelvis: report reviewed by me DS: Provider Date of admission: 10/09/16 21:38 Primary care physician: . No PCP Attending physician on admission: Ramsey Sauceda DO Consults: 10/09/16 21:38 Consult to Case Mgmt/Social Srvs [CONS] Routine Reason for Case Mgmt/Social Srvs: Discharge Planning Discharging clinician: Mirian E Mahad, DO Expected date of discharge: 10/15/16
== END 2016-10-15 14:25 | disposition home or self-care (01) | DRG 440 ==
LOC: N.ED 18:42 → N.EDINP 21:38 → N.2E 22:59
PROVIDERS: ADMIT Family Medicine; ATTEND Family Medicine

== ENCOUNTER 2017-10-09 14:51 | Inpatient (IN) ==
[2017-10-09 17:13] LABS: Hematocrit 48.6 VOL% (42.0-52.0); Hemoglobin 16.7 GM/DL (14.0-18.0); Red Blood Count 5.13 MC/CUMM (3.8-5.5); White Blood Count 11.6 T/CUMM (4-12)
[2017-10-09 17:14] LABS: Basophils # 0.1 10*3/uL (0.0-0.2); Basophils % 0.4 % (0.0-0.8); Eosinophils # 0.2 10*3/uL (0.0-0.87); Eosinophils % 1.3 % (0.00-10.9); Immature Granulocytes % 0.4 %; Immature Granulocytes Absolute 0.05 #; Lymphocytes # 2.7 10*3/uL (1.4-4.0); Mean Corpuscular HGB Conc 34.4 GM/DL (32-36); Mean Corpuscular Hemoglobin 33 PG (27-34); Mean Corpuscular Volume 94.7 FL (87-102); Mean Platelet Volume 12.4 FL (9.6-12.0); Monocytes # 0.6 10*3/uL (0.11-0.8); Neutrophils # 8.1 10*3/uL (1.4-7.4); Neutrophils % 69.9 % (38.7-73.9); Platelet Count 115 T/CUMM (130-400); Red Cell Distribution Width 12.6 % (9.3-17.3)
[2017-10-09 17:39] LABS: Lactic Acid 1.1 MMOL/L (0.4-2.0)
[2017-10-09 17:45] LABS: Barbiturates Screen,Urine Negative (Negative); Benzodiazepines Screen,Urine Positive (Negative); Cannabinoid Screen,Urine Positive (Negative); Opiate Screen,Urine Positive (Negative); Phencyclidine Screen,Urine Negative (Negative)
[2017-10-09 19:00] LABS: Albumin 4.2 G/DL (3.4-5.0); Bilirubin,Total 0.8 MG/DL (0.2-1.0); Calcium 8.6 MG/DL (8.5-10.1); Total Protein 7.2 G/DL (6.4-8.3)
[2017-10-09 19:01] LABS: Osmolality,Calculated 271.8 MOS/KG (273-304); Potassium 4.3 MMOL/L (3.5-5.1)
[2017-10-09] MEDS ORDERED: SODIUM CHLORIDE 0.9% 1,000 ML IV STA (19:07)
[2017-10-09] MEDS ORDERED: MORPHINE 4 MG/1 ML VIAL IV STA ×2 (19:07→20:04)
[2017-10-09] MEDS ORDERED: ONDANSETRON 4 MG/2 ML VIAL IV STA (19:07)
[2017-10-09] MEDS ORDERED: ONDANSETRON 4 MG/2 ML VIAL ONE (19:13)
[2017-10-09] MEDS ORDERED: MORPHINE 4 MG/1 ML VIAL ONE ×2 (19:13→20:05)
[2017-10-09] MEDS ORDERED: LORazepam 2 MG/1 ML VIAL IV PRN (20:52)
[2017-10-09] MEDS ORDERED: HYDROmorphone 2 MG/1 ML VIAL IV SCH (21:00)
[2017-10-09] MEDS ORDERED: HYDROmorphone 2 MG/1 ML VIAL ONE (21:36)
[2017-10-09] MEDS: DEXTROSE 5% NACL 0.9% 1,000 ML IV SCH (22:46)
[2017-10-09] MEDS: PIPERACILLIN/TAZOBACTAM 3,375 MG in SODIUM CHLORIDE 0.9% 100 ML IV SCH (22:48)
[2017-10-10] MEDS: HYDROmorphone 2 MG/1 ML VIAL IV PRN ×8 (00:19→22:48)
[2017-10-10 02:13] LABS: Apearance,Urine CLEAR (Clear); Bilirubin,Urine Negative (Negative); Blood, Urine Negative (Negative); Glucose,Urine (UA) Negative (Negative); Ketones,Urine Negative (Negative); Nitrite,Urine Negative (Negative); Protein,Urine Negative; RBC,Urine <1 /HPF (0-4); Squamous Epithelial Cell,Urine Occasional /HPF (0-10); Urine Color Yellow (Yellow); Urine Specific Gravity 1.058 (1.001-1.035); Urine Urobilinogen < 2.0 EU/DL (0.2-1.0); WBC,Urine <1 /HPF (0-6)
[2017-10-10] MEDS: ONDANSETRON 4 MG/2 ML VIAL IV PRN ×3 (03:42→20:14)
[2017-10-10] MEDS: PIPERACILLIN/TAZOBACTAM 3,375 MG in SODIUM CHLORIDE 0.9% 100 ML IV SCH ×3 (05:35→20:16)
[2017-10-10 05:49] LABS: Basophils # 0.1 10*3/uL (0.0-0.2); Basophils % 0.6 % (0.0-0.8); Eosinophils # 0.2 10*3/uL (0.0-0.87); Eosinophils % 2.1 % (0.00-10.9); Hematocrit 43.8 VOL% (42.0-52.0); Hemoglobin 15.1 GM/DL (14.0-18.0); Immature Granulocytes % 0.3 %; Immature Granulocytes Absolute 0.03 #; Lymphocytes # 3.2 10*3/uL (1.4-4.0); Lymphocytes % 35.3 % (21.2-54.2); Mean Corpuscular HGB Conc 34.5 GM/DL (32-36); Mean Corpuscular Hemoglobin 33 PG (27-34); Mean Corpuscular Volume 94.2 FL (87-102); Mean Platelet Volume 12.6 FL (9.6-12.0); Monocytes # 0.6 10*3/uL (0.11-0.8); Monocytes % 6.4 % (1.7-12.7); NRBC # 0.02 10*3/uL; Neutrophils % 55.3 % (38.7-73.9); Platelet Count 93 T/CUMM (130-400); Red Blood Count 4.65 MC/CUMM (3.8-5.5); Red Cell Distribution Width 12.6 % (9.3-17.3)
[2017-10-10 06:21] LABS: Eosinophils 4 % (0-10); Hypochromasia 1+; Lymphocytes 25 % (20-55); Platelet Estimate Decreased; Segmented Neutrophils 66 % (50-85); Total Cells Counted 100
[2017-10-10 06:44] LABS: Albumin 3.5 G/DL (3.4-5.0); Bilirubin,Total 1.4 MG/DL (0.2-1.0); Calcium 7.8 MG/DL (8.5-10.1); Osmolality,Calculated 276.5 MOS/KG (273-304); Potassium 3.4 MMOL/L (3.5-5.1); Total Protein 6.2 G/DL (6.4-8.3)
[2017-10-10] MEDS: PANTOPRAZOLE 40 MG VIAL IV SCH (09:39)
[2017-10-10] MEDS: FOLIC ACID 1 MG TABLET PO SCH (09:39)
[2017-10-10] MEDS: THIAMINE 200 MG/2 ML VIAL IV SCH (09:39)
[2017-10-10] MEDS ORDERED: ZALEPLON 5 MG CAPSULE PO PRN (10:22)
[2017-10-10] MEDS: POTASSIUM CHLORIDE RIDER 10 MEQ in PREMIX 1 EACH IV SCH ×3 (11:00→12:15)
[2017-10-10] MEDS ORDERED: POTASSIUM CHLORIDE 8 MEQ CAPSULE PO ONE (11:46)
[2017-10-10] MEDS: LORazepam 1 MG TABLET PO SCH ×2 (14:32→20:14)
[2017-10-10] MEDS: DEXTROSE 5% NACL 0.9% 1,000 ML IV SCH (19:49)
[2017-10-10] MEDS: SERTRALINE 50 MG TABLET PO SCH (20:14)
[2017-10-11] MEDS: ONDANSETRON 4 MG/2 ML VIAL IV PRN ×3 (01:53→20:06)
[2017-10-11] MEDS: HYDROmorphone 2 MG/1 ML VIAL IV PRN ×8 (01:54→23:47)
[2017-10-11 02:15] LABS: Basophils % 0.6 % (0.0-0.8); Eosinophils # 0.2 10*3/uL (0.0-0.87); Eosinophils % 3.2 % (0.00-10.9); Hematocrit 40.3 VOL% (42.0-52.0); Hemoglobin 13.5 GM/DL (14.0-18.0); Immature Granulocytes % 0.5 %; Immature Granulocytes Absolute 0.03 #; Lymphocytes % 45.2 % (21.2-54.2); Mean Corpuscular HGB Conc 33.5 GM/DL (32-36); Mean Corpuscular Hemoglobin 32 PG (27-34); Mean Corpuscular Volume 95.7 FL (87-102); Mean Platelet Volume 12.6 FL (9.6-12.0); Monocytes # 0.4 10*3/uL (0.11-0.8); Monocytes % 5.6 % (1.7-12.7); Neutrophils % 44.9 % (38.7-73.9); Platelet Count 84 T/CUMM (130-400); Red Blood Count 4.21 MC/CUMM (3.8-5.5); White Blood Count 6.7 T/CUMM (4-12)
[2017-10-11 03:05] LABS: Calcium 7.3 MG/DL (8.5-10.1); Osmolality,Calculated 281.3 MOS/KG (273-304); Potassium 3.4 MMOL/L (3.5-5.1)
[2017-10-11 04:13] LABS: Platelet Estimate Decreased
[2017-10-11] MEDS: PIPERACILLIN/TAZOBACTAM 3,375 MG in SODIUM CHLORIDE 0.9% 100 ML IV SCH ×3 (05:15→20:11)
[2017-10-11] MEDS: FOLIC ACID 1 MG TABLET PO SCH (10:57)
[2017-10-11] MEDS: LORazepam 1 MG TABLET PO SCH ×3 (10:57→20:09)
[2017-10-11] MEDS: THIAMINE 200 MG/2 ML VIAL IV SCH (10:57)
[2017-10-11] MEDS: PANTOPRAZOLE 40 MG VIAL IV SCH (10:57)
[2017-10-11] MEDS: DEXTROSE 5% NACL 0.9% 1,000 ML IV SCH (12:37)
[2017-10-11] MEDS: SERTRALINE 50 MG TABLET PO SCH (20:10)
[2017-10-12] MEDS: ONDANSETRON 4 MG/2 ML VIAL IV PRN ×4 (03:57→22:39)
[2017-10-12] MEDS: HYDROmorphone 2 MG/1 ML VIAL IV PRN ×7 (03:58→22:37)
[2017-10-12] MEDS: DEXTROSE 5% NACL 0.9% 1,000 ML IV SCH ×3 (04:04→21:02)
[2017-10-12] MEDS: PIPERACILLIN/TAZOBACTAM 3,375 MG in SODIUM CHLORIDE 0.9% 100 ML IV SCH ×3 (04:26→21:02)
[2017-10-12 06:08] LABS: Basophils % 0.5 % (0.0-0.8); Eosinophils # 0.2 10*3/uL (0.0-0.87); Hematocrit 39.8 VOL% (42.0-52.0); Hemoglobin 13.2 GM/DL (14.0-18.0); Immature Granulocytes % 0.2 %; Immature Granulocytes Absolute 0.01 #; Lymphocytes # 3.1 10*3/uL (1.4-4.0); Lymphocytes % 50.8 % (21.2-54.2); Mean Corpuscular HGB Conc 33.2 GM/DL (32-36); Mean Corpuscular Hemoglobin 33 PG (27-34); Mean Corpuscular Volume 98.5 FL (87-102); Mean Platelet Volume 12.7 FL (9.6-12.0); Monocytes # 0.3 10*3/uL (0.11-0.8); Monocytes % 5.3 % (1.7-12.7); Neutrophils # 2.4 10*3/uL (1.4-7.4); Neutrophils % 40.2 % (38.7-73.9); Platelet Count 80 T/CUMM (130-400); Red Blood Count 4.04 MC/CUMM (3.8-5.5); Red Cell Distribution Width 12.9 % (9.3-17.3)
[2017-10-12 06:26] LABS: Risk Ratio 5.52; VLDL CHOLESTEROL 23.4 MG/DL
[2017-10-12 07:19] LABS: Eosinophils 3 % (0-10); Lymphocytes 34 % (20-55); Segmented Neutrophils 61 % (50-85); Total Cells Counted 100
[2017-10-12 07:20] LABS: Hypochromasia 1+
[2017-10-12 07:21] LABS: Atypical Lymphocytes Few; Platelet Estimate Decreased
[2017-10-12] MEDS: LORazepam 1 MG TABLET PO SCH ×3 (08:43→20:58)
[2017-10-12] MEDS: THIAMINE 200 MG/2 ML VIAL IV SCH (08:43)
[2017-10-12] MEDS: FOLIC ACID 1 MG TABLET PO SCH (08:43)
[2017-10-12] MEDS: PANTOPRAZOLE 40 MG VIAL IV SCH (08:44)
[2017-10-12 13:54] LABS: Apearance,Urine CLEAR (Clear); Bilirubin,Urine Negative (Negative); Blood, Urine Negative (Negative); Glucose,Urine (UA) Negative (Negative); Ketones,Urine Negative (Negative); Nitrite,Urine Negative (Negative); Protein,Urine Negative; RBC,Urine <1 /HPF (0-4); Urine Color Yellow (Yellow); Urine Specific Gravity 1.017 (1.001-1.035); Urine Urobilinogen < 2.0 EU/DL (0.2-1.0); WBC,Urine 1 /HPF (0-6)
[2017-10-12] MEDS: SERTRALINE 50 MG TABLET PO SCH (20:58)
[2017-10-13] MEDS: HYDROmorphone 2 MG/1 ML VIAL IV PRN ×7 (01:34→21:45)
[2017-10-13] MEDS: ONDANSETRON 4 MG/2 ML VIAL IV PRN ×3 (04:42→18:12)
[2017-10-13] MEDS: PIPERACILLIN/TAZOBACTAM 3,375 MG in SODIUM CHLORIDE 0.9% 100 ML IV SCH ×3 (04:45→21:48)
[2017-10-13 05:09] LABS: Basophils % 0.7 % (0.0-0.8); Eosinophils # 0.2 10*3/uL (0.0-0.87); Eosinophils % 3.2 % (0.00-10.9); Hemoglobin 13.2 GM/DL (14.0-18.0); Immature Granulocytes % 0.4 %; Immature Granulocytes Absolute 0.02 #; Lymphocytes # 2.5 10*3/uL (1.4-4.0); Lymphocytes % 44.4 % (21.2-54.2); Mean Corpuscular Hemoglobin 33 PG (27-34); Mean Corpuscular Volume 99.3 FL (87-102); Mean Platelet Volume 12.9 FL (9.6-12.0); Monocytes # 0.3 10*3/uL (0.11-0.8); Monocytes % 5.4 % (1.7-12.7); Neutrophils # 2.6 10*3/uL (1.4-7.4); Neutrophils % 45.9 % (38.7-73.9); Platelet Count 82 T/CUMM (130-400); Red Blood Count 4.03 MC/CUMM (3.8-5.5); Red Cell Distribution Width 12.7 % (9.3-17.3); White Blood Count 5.6 T/CUMM (4-12)
[2017-10-13] MEDS: DEXTROSE 5% NACL 0.9% 1,000 ML IV SCH (08:38)
[2017-10-13] MEDS: DEXT 5% NACL 0.45% KCL 20 MEQ 20 MEQ/1,000 ML BAG IV SCH ×2 (08:42→17:42)
[2017-10-13] MEDS: FOLIC ACID 1 MG TABLET PO SCH (09:07)
[2017-10-13] MEDS: THIAMINE 200 MG/2 ML VIAL IV SCH (09:07)
[2017-10-13] MEDS: PANTOPRAZOLE 40 MG VIAL IV SCH (09:08)
[2017-10-13] MEDS: LORazepam 1 MG TABLET PO SCH ×3 (10:11→21:44)
[2017-10-13] MEDS: SERTRALINE 50 MG TABLET PO SCH (21:44)
[2017-10-14] MEDS: HYDROmorphone 2 MG/1 ML VIAL IV PRN ×5 (00:44→13:53)
[2017-10-14] MEDS: ONDANSETRON 4 MG/2 ML VIAL IV PRN (00:46)
[2017-10-14 04:49] LABS: Basophils % 0.3 % (0.0-0.8); Eosinophils # 0.2 10*3/uL (0.0-0.87); Eosinophils % 2.6 % (0.00-10.9); Hematocrit 37.4 VOL% (42.0-52.0); Hemoglobin 12.8 GM/DL (14.0-18.0); Immature Granulocytes % 0.3 %; Immature Granulocytes Absolute 0.02 #; Lymphocytes # 1.7 10*3/uL (1.4-4.0); Lymphocytes % 27.8 % (21.2-54.2); Mean Corpuscular HGB Conc 34.2 GM/DL (32-36); Mean Corpuscular Hemoglobin 33 PG (27-34); Mean Corpuscular Volume 95.2 FL (87-102); Monocytes # 0.5 10*3/uL (0.11-0.8); Monocytes % 7.5 % (1.7-12.7); Neutrophils # 3.9 10*3/uL (1.4-7.4); Neutrophils % 61.5 % (38.7-73.9); Red Blood Count 3.93 MC/CUMM (3.8-5.5); Red Cell Distribution Width 12.5 % (9.3-17.3); White Blood Count 6.3 T/CUMM (4-12)
[2017-10-14 04:51] LABS: Platelet Count 66 T/CUMM (130-400)
[2017-10-14 05:08] LABS: Albumin 3.2 G/DL (3.4-5.0); Bilirubin,Total 0.6 MG/DL (0.2-1.0); Calcium 8.3 MG/DL (8.5-10.1); Osmolality,Calculated 276.5 MOS/KG (273-304); Potassium 3.7 MMOL/L (3.5-5.1); Total Protein 6.1 G/DL (6.4-8.3)
[2017-10-14] MEDS: PIPERACILLIN/TAZOBACTAM 3,375 MG in SODIUM CHLORIDE 0.9% 100 ML IV SCH ×2 (05:13→13:53)
[2017-10-14] MEDS: LORazepam 1 MG TABLET PO SCH ×2 (09:02→15:46)
[2017-10-14] MEDS: THIAMINE 200 MG/2 ML VIAL IV SCH (09:02)
[2017-10-14] MEDS: FOLIC ACID 1 MG TABLET PO SCH (09:02)
[2017-10-14] MEDS: PANTOPRAZOLE 40 MG VIAL IV SCH (09:03)
[2017-10-14] MEDS: DEXT 5% NACL 0.45% KCL 20 MEQ 20 MEQ/1,000 ML BAG IV SCH (10:07)
[2017-10-14 12:42] VITALS: BP 122/82
== END 2017-10-14 15:05 | disposition home or self-care (01) | DRG 439 ==
LOC: N.ED 14:51 → N.EDINP 20:50 → N.4E 22:04
PROVIDERS: ADMIT Family Medicine; ATTEND Family Medicine